=== PATIENT | female | born 1955 | race Caucasian/White ===

== ENCOUNTER 2017-12-04 14:40 | Emergency (ER) | payer MEDICAID, SELFPAY ==
[2017-12-04 14:45] VITALS: BP 148/81; PULSE 97; RESP 16; TEMP 37; O2SAT 98
--- NOTE | 2017-12-04 15:49 | DI.REPORT_ITS ---
SYMPTOM/DIAGNOSIS: LEFT ARM PAIN ULTRASOUND LEFT UPPER EXTREMITY: The jugular, subclavian through the forearm was scanned. The vessels are freely compressible. No deep venous or superficial thrombosis seen. There is no evidence of hematoma. IMPRESSION: Negative left upper extremity ultrasound.
--- NOTE | 2017-12-04 15:49 | DI.REPORT_ITS ---
SYMPTOM/DIAGNOSIS: LEFT ARM PAIN LEFT HUMERUS: No fracture or bony erosions are seen. Large calcifications are seen adjacent to the humeral head which appear to lie in the subcoracoid bursa. An additional small calcification is seen adjacent to the greater tuberosity. There is mild spurring at the under surface of the acromion. The glenohumeral joint is grossly well maintained. IMPRESSION: Calcific tendinitis and calcific bursitis.
--- NOTE | 2017-12-04 16:36 | DI.VRAD_ITS ---
EXAM: XR Left Humerus, 2 or More Views CLINICAL HISTORY: 62 years old, female; Pain; Upper arm; Left; Patient HX: Left mid, humeral pain TECHNIQUE: Frontal and lateral views of the left humerus. COMPARISON: US - LEFT EXTREMITY ULTRASOUND 2017-03-25 09:14 FINDINGS: Bones/joints: Minimal degenerative arthrosis of the acromioclavicular joint. No acute fracture. No dislocation. Soft tissues: Amorphous calcification measuring 3.9 cm long by 1.5 cm high by 1.5 cm AP anterior to the humeral head extending to the humerus lesser tuberosity. Differential diagnosis includes subscapularis calcific bursitis and/or subscapularis calcific tendinitis. Other findings: Dense 4 mm nodule within the left lung apex, likely calcified granuloma. IMPRESSION: Subscapularis calcific tendinitis and/or calcific bursitis. Dictated and Authenticated by: Graeme Olmstead MD. Ordering:ALVERTO KNOX MD
--- NOTE | 2017-12-04 17:47 | ED.GENADUL_ITS ---
Disposition Clinical Impression: Left upper arm pain Disposition: HOME Condition: Stable Instructions: Arm Pain (ED) Additional Instructions: Feel free to return immediately for any new or worsening symptoms such as severe swelling of your extremity, color change, loss of sensation. Otherwise keep your appointment for your primary care provider tomorrow. This evening you may continue to take acetaminophen as needed for pain control. Referrals: Arnoldo Florentino MD [Primary Care Provider] - (Keep your appointment as previously scheduled) Medical Decision Making - Radiology Data Radiology results: report reviewed, image reviewed - Medical Decision Making Patient presenting to the emergency department for left upper arm pain. She states a popping sensation prior to this occurring. Patient states history of clotting disorder which requires her to take aspirin on a daily basis. Physical exam reveals mid humeral pain and discomfort with movement and palpation but no obvious deformity, crepitus. Negative Spurling's test patient denies any injury or trauma but patient's history of event is odd and there is concern for possible clot to her arm or other ostial pathology. Plan to do ultrasound imaging of arm given history of stated blood clotting disorder and x- ray imaging. Patient given acetaminophen for pain control pending results. After review of radiological imaging showing no DVT noted in the arm and no fracture dislocation but obvious signs of calcification of tendons there is concern for some possible tendinopathy. This does not specifically correlate with patient stating a popping sensation and there is no sign of muscular rupture, ecchymosis, or deformity with patient being able to move her arm but extremely painful with movement. Given these findings and informed patient that she should rest her extremity for the next 3-4 days and continue to take acetaminophen as needed for pain control. Patient to follow-up with her primary care provider if not improving. After discussion of diagnosis and plan of care with patient patient agreed and stated no further needs, questions, or concerns at this time. History of Present Illness - General Chief complaint: Orthopedic Stated complaint: LT ARM PAIN Time Seen by Provider: 12/04/17 14:50 Source: patient, RN notes reviewed Mode of arrival: ambulatory Limitations: no limitations - History of Present Illness Initial comments: Patient reports yesterday she was sitting on a couch and felt a pop in her left upper arm. She states that she has been dealing with some pain in her left arm for about a month now and her primary care provider told her it was cervical radiculopathy. She states that this is a different pain and sensation. Patient denies any injury or trauma that occurred preceding the pain. She does state that she has a clotting disorder which she has to take aspirin daily. Onset/Timin -: days(s) Location: left, upper extremity Radiation: distal Severity scale (1-10): 4 Quality: aching Consistency: constant Improves with: none Worsens with: movement Associated Symptoms: denies other symptoms Treatments Prior to Arrival: none - Related Data Aspirin 325 mg PO DAILY tab-cap 09/18/12 Divalproex Sodium 500 mg PO BID #180 tab-cap 10/29/16 Lorazepam 1 tab PO Q6H PRN #30 tab-cap 01/06/17 Metoprolol Succinate 1 tab PO DAILY #90 tab-cap 09/08/17 Baclofen 10 mg PO TID PRN #30 tab-cap 10/23/17 Sumatriptan Succinate 100 mg PO DIRECTED #40 tab 11/21/17 Verapamil HCl [Verelan] 360 mg PO DAILY #90 tab-cap 11/24/17 Allergies Allergy/AdvReac Type Severity Reaction Status Date / Time hydrochlorothiazide Allergy Unverified 12/05/17 13:10 carbamazepine AdvReac Severe nausea and Unverified 12/05/17 13:10 bloating lisinopril AdvReac diarrhea Unverified 12/05/17 13:10 topiramate [From Topamax] AdvReac tachy Unverified 12/05/17 13:10 Adhesive Tab Allergy Intermediate skin Uncoded 12/04/17 14:48 blistered Review of Systems Constitutional: denies: chills, fever Respiratory: denies: shortness of breath Cardiovascular: denies: chest pain, palpitations Gastrointestinal: denies: abdominal pain, nausea Musculoskeletal: as per HPI. denies: joint swelling Skin: denies: change in color Neurological: numbness, paresthesias Past Medical History - Past Medical History Medical history: hypertension Myeloproliferative disorder, migraine headache, cystic mastopathy, celiac disease, thrombocytopenia, polycythemia vera Surgical history: non-contributory Family history: cancer, diabetes, hypertension - Social History Smoking status: never smoker Alcohol use: none Drug use: none General Exam - General Limitations: no limitations General appearance: alert, in no apparent distress - Head Head exam: Present: atraumatic - Neck Neck exam: Present: normal inspection, full ROM. Absent: tenderness, other ( Negative Spurling's test) - Respiratory Respiratory exam: Present: normal lung sounds bilaterally. Absent: respiratory distress, wheezes, rales, rhonchi, stridor, chest wall tenderness, decreased breath sounds - Cardiovascular Cardiovascular Exam: Present: regular rate, normal rhythm, normal heart sounds. Absent: tachycardia, systolic murmur, diastolic murmur, rubs, clicks - Expanded Upper Extremity Exam Left Shoulder Exam: Absent: full ROM (Patient has difficulty with external rotation and abduction), crepidus, dislocation, erythema, tenderness over AC joint Upper Arm exam: Present: tenderness (To palpation of mid humerus) Elbow exam: Present: normal inspection, full ROM. Absent: pain w/ pronation/ supination, tenderness over radial head Forearm Wrist exam: Present: normal inspection, full ROM. Absent: tenderness Hand Wrist exam: Present: normal inspection, full ROM Neuro motor exam: Present: wrist extension intact, thumb opposition intact, thumb IP flexion intact, thumb adduction intact, fingers 2-5 abduction intact Neurosensory exam: Present: 2-point discrimination, radial nerve intact, ulnar nerve intact, median nerve intact - Neurological Exam Neurological exam: Present: alert, oriented X3. Absent: altered - Skin Skin exam: Present: warm, dry, normal color Course Vital Signs - 24 hr 12/04/17 14:45 Temperature 37.0 C Pulse 97 H Respiratory 16 Rate Blood Pressure 148/81 Pulse Oximetry 98
--- NOTE | 2017-12-04 17:47 | DI.VRAD_ITS ---
EXAM: US Duplex Left Upper Extremity Veins CLINICAL HISTORY: 62 years old, female; Pain; Other: Mid humeral pain no trauma TECHNIQUE: Real-time duplex ultrasound scan of the left upper extremity veins integrating B-mode two-dimensional vascular structure, Doppler spectral analysis, color flow Doppler imaging and compression. COMPARISON: No relevant prior studies available. FINDINGS: No evidence of deep venous thrombosis. No abnormal fluid collections. IMPRESSION: No evidence of deep venous thrombosis. Dictated and Authenticated by: Pascual Landaverde MD. Ordering:ALVERTO KNOX MD
[2017-12-04 18:11] VITALS: BP 110/85; PULSE 78; RESP 16; TEMP 36.8; O2SAT 98
== END 2017-12-04 18:13 | disposition home or self-care (01) ==
PROVIDERS: Emergency Provider Student in an Organized Health Care Education/Training Program; PCP Family Medicine
DX: M79.622 Pain in left upper arm (principal); I10 Essential (primary) hypertension
CPT/HCPCS: 99284; 73060; 93971

== ENCOUNTER 2018-01-14 00:39 | Outpatient (CLI) | payer MEDICAID, SELFPAY ==
--- NOTE | 2018-01-14 07:11 | DI.CT_ITS ---
SYMPTOM/DIAGNOSIS: SOFT TISSUE MASS, LEFT AXILLA R22.[address]: The study was carried out with intravenous administration of 100 cc Isovue 350. There is no pulmonary infiltrate. There are small bilateral calcified pulmonary nodules and a 5 mm nodule is noted adjacent to the pleural surface in the right lower lobe. A region of scarring involving the right middle lobe is demonstrated. There is no pneumothorax or pleural effusion. There is no evidence of hilar or mediastinal adenopathy. The heart is not enlarged. There is no pericardial effusion. There is no evidence of pulmonary embolic disease. There is no evidence of an aortic aneurysm. There is no evidence of lateral left axillary adenopathy or a mass. Note is made of regions of increased absorption in the left humeral head probably on the basis of degenerative disease. The patient underwent a left shoulder MRI on the same date. Please see the separate report. SUMMARY: Multiple old healed granulomata are demonstrated. There is a 5 mm nodule adjacent to the posterior right pleural surface which is not calcified. A follow up low dose chest CT in 12 months is suggested for further review. No axillary mass is demonstrated. As noted above there are regions of increased absorption in the left humeral head to be correlated with an MRI.
[2018-01-14 07:42] LABS: CREATININE 0.86 mg/dL (0.55-1.02)
[2018-01-14] MEDS: Omnipaque 350 MG/ML 100 ML BTL IV (08:35)
--- NOTE | 2018-01-14 10:10 | DI.MRI_ITS ---
SYMPTOMS/DIAGNOSIS: RADICULAR PAIN INTO LEFT ARM WITH ANESTHESIA, LEFT CERVICAL RADICULOPATHY C-SPINE MRI: The examination was carried out according to the usual protocol. No significant bony signal abnormality is seen. At C2-3, there is no evidence of a disc herniation. The facet joints are intact. There is no evidence of spinal stenosis. At C3-4, there is no disc herniation, minimal facet joint degenerative changes are identified and there is no evidence of spinal stenosis. At C4-5, there is no evidence of a disc herniation, minimal facet DJD is demonstrated and there is no evidence of spinal stenosis. At C5-C6, a disc bulge is demonstrated with partial effacement of the subarachnoid space anterior to the cord. There is mild facet joint DJD and no evidence of significant spinal stenosis. At C6-C7, a small disc bulge is noted and there is partial effacement of the subarachnoid space anterior to the cord. There are mild to moderate facet joint degenerative changes and no evidence of significant spinal stenosis. There is no intrinsic abnormality involving the cervical cord. SUMMARY: There is evidence of degenerative disc disease and DJD with no evidence of significant spinal stenosis.
[2018-01-14] MEDS: Gadoterate meglumine 20 ML VIAL 19 ML IVP (11:15)
--- NOTE | 2018-01-14 11:40 | DI.MRI_ITS ---
SYMPTOM/DIAGNOSIS: PAIN AND DECREASED ROM LT SHOULDER, PAIN M25.512 LEFT SHOULDER MRI: 01/14 MR examination of the shoulder was performed according to the usual protocol. There are areas of heterogeneous abnormal signal in the humeral head. The patient has known calcific michele-arthritis of the shoulder. The subscapularis tendon is markedly abnormal in signal consistent with known acute calcific michele-arthritis with very prominent calcifications. Post contrast imaging of the humeral head shows some abnormal signal. The findings are nonspecific but the possibility of neoplastic or post traumatic change would have to be considered. Mild tendinopathy of supraspinatus and infraspinatus tendons also noted. No gross labral tear is seen. CONCLUSION: Findings consistent with acute calcific michele-arthritis of the subscapularis tendon and mild tendinopathy involving supraspinatus and infraspinatus. Findings of uncertain significance involving left humeral head, post traumatic or neoplastic findings may be present. Additional evaluation with CT shoulder is recommended.
--- NOTE | 2018-01-15 13:38 | DI.VRAD_ITS ---
EXAM: MR Left Upper Extremity Without And With Intravenous Contrast, Shoulder EXAM DATE/TIME: 01/14/2018 4:17 PM CLINICAL HISTORY: The patient is 62 years old and is female; Pain; Shoulder; Left; Patient HX: Left arm pain, no known injury. Main TECHNIQUE: Multiplanar magnetic resonance images of the left shoulder without and with intravenous contrast. CONTRAST: 19 mL of Dotarem administered intravenously. COMPARISON: CR - LEFT HUMERUS 12/04/2017 4:16:40 PM FINDINGS: TENDONS: Supraspinatus: There is mild supraspinatus tendinopathy. Infraspinatus: There is very mild infraspinatus tendinopathy. Subscapularis: There is moderate subscapularis tendinopathy. This includes some heterogeneous signal along the musculotendinous junction which may relate to be calcification seen on radiographs. Teres minor: Unremarkable. Biceps brachii, long head: Unremarkable. LIGAMENTS: Glenohumeral: Unremarkable. Muscles: Unremarkable. Fluid: Unremarkable. No joint effusion. Cartilage: The glenohumeral articular cartilage is intact. Glenoid labrum: No gross tear of the acetabular labrum is evident. Bones/joints: There is very mild acromioclavicular arthrosis. A small osteophyte projection the distal undersurface of the acromion. There is heterogeneous signal abnormality in the humeral head anteriorly and laterally, consisting of lobulated low T1 and high T2 signal foci, extending over an area up to 3.1 x 1.7 x 1.5 cm, as well as some globular dark T1/T2 signal more inferiorly toward the neck, measuring up to 1.6 cm. Some of this appears to enhance heterogeneously. This is of uncertain significance and has no definite radiographic correlate, but pathology is possible. IMPRESSION: 1. Degenerative changes as described. 2. Rotator cuff tendinopathy as described, including heterogeneous signal along the subscapularis musculotendinous junction which may relate to calcification on radiographs of 12/04/17 in association with calcific tendinopathy. 3. Signal abnormality in the humeral head as above, without definite radiographic correlate and of uncertain significance. Underlying pathology is possible, and further evaluation with CT and possibly bone scan is recommended. Dictated and Authenticated by: Eduardo Rucker MD. Ordering:DANN LECHUGA MD
== END 2018-01-14 00:59 ==
PROVIDERS: PCP Family Medicine; Visit Provider Family Medicine
DX: R22.32 Localized swelling, mass and lump, left upper limb (principal); R91.1 Solitary pulmonary nodule; M54.12 Radiculopathy, cervical region; M50.322 Other cervical disc degeneration at C5-C6 level; M47.22 Other spondylosis with radiculopathy, cervical region; M25.512 Pain in left shoulder
CPT/HCPCS: 71260; 72141; 73223; 82565; J3490

== ENCOUNTER 2018-02-03 01:41 | Outpatient (CLI) | payer MEDICAID, SELFPAY ==
[2018-02-03 08:28] LABS: Abs Immature Grans 0.04 k/cumm (0.0-0.09); Absolute Basophil Count 0.19 k/cumm (0.0-0.2); Absolute Lymphocyte Count 2.48 k/cumm (1.2-3.4); Absolute Monocyte Count 0.57 k/cumm (0.11-0.7); Absolute Neutrophil Count 3.51 k/cumm (1.2-6.7); Basophils % 2.7; Eosinophils % 4.2; HCT 40.1 % (36.0-46.0); HGB 13.3 g/dL (12.0-15.5); Immature Grans % 0.6; Mean Corp. HGB Concentration 33.2 g/dL (32.0-36.0); Mean Corpuscular Hemoglobin 28.8 pg (27.0-33.0); Mean Corpuscular Volume 86.8 fL (80-95); Mean Platelet Volume 9.6 fL (8.0-11.0); Neutrophils % 49.5; RBC 4.62 m/cumm (4.00-5.20); RBC Distribution Width 20.1 % (11.7-14.6); White Blood Cell Count 7.09 k/cumm (4.4-10.8)
[2018-02-03 08:46] LABS: Iron 90 ug/dL (50-175); Total Iron Binding Capacity 338 ug/dL (250-450); Transferrin Sat 27 % (15-50)
[2018-02-03 08:49] LABS: Anisocytosis 3+; Diff Comment Agrees w/ Instrument; Platelet Count 993 x1000/uL (130-400); Polychromasia Present
[2018-02-03 08:50] LABS: Poikilocytes 2+
[2018-02-03 08:58] LABS: ALT 70 U/L (12-78); AST 37 U/L (15-37); Albumin 3.8 g/dL (3.4-5.0); Alkaline Phosphatase 127 U/L (46-116); BUN 16 mg/dL (7-18); Bilirubin, Total 0.3 mg/dL (0.2-1.0); Calcium 8.7 mg/dL (8.5-10.1); Chloride 103 mmol/L (98-107); Ferritin 207 ng/mL (8-388); Glucose 120 mg/dL (70-100); Potassium 3.9 mmol/L (3.5-5.1); Sodium 140 mmol/L (136-145); Total Protein 7.7 g/dL (6.4-8.2)
== END 2018-02-03 02:01 ==
PROVIDERS: PCP Family Medicine; Visit Provider Internal Medicine Hematology & Oncology
DX: D47.3 Essential (hemorrhagic) thrombocythemia (principal); E61.1 Iron deficiency
CPT/HCPCS: 36415; 80053; 82728; 83540; 83550; 85025

== ENCOUNTER 2018-03-18 11:16 | Outpatient (CLI) | payer MEDICAID, SELFPAY ==
[2018-03-18 12:05] LABS: HCT 38.2 % (36.0-46.0); HGB 12.6 g/dL (12.0-15.5); Mean Corpuscular Hemoglobin 29.6 pg (27.0-33.0); Mean Corpuscular Volume 89.9 fL (80-95); Mean Platelet Volume 9.5 fL (8.0-11.0); RBC 4.25 m/cumm (4.00-5.20); RBC Distribution Width 19.9 % (11.7-14.6); White Blood Cell Count 6.61 k/cumm (4.4-10.8)
[2018-03-18 12:27] LABS: ALT 39 U/L (12-78); AST 23 U/L (15-37); Albumin 3.8 g/dL (3.4-5.0); Alkaline Phosphatase 109 U/L (46-116); Anion Gap 10.5 mmol/L (3-11); BUN 15 mg/dL (7-18); Bilirubin, Total 0.3 mg/dL (0.2-1.0); CO2 27.5 mmol/L (21.0-32.0); CREATININE 1.02 mg/dL (0.55-1.02); Calcium 9.2 mg/dL (8.5-10.1); Chloride 101 mmol/L (98-107); Estimated GFR 55.28 (mL/min/1.73m2); Ferritin 153 ng/mL (8-388); Glucose 107 mg/dL (70-100); Potassium 4.2 mmol/L (3.5-5.1); Sodium 139 mmol/L (136-145); Total Protein 7.7 g/dL (6.4-8.2)
[2018-03-18 12:40] LABS: Absolute Lymphocyte Count 2.91 k/cumm (1.2-3.4); Absolute Monocyte Count 0.13 k/cumm (0.11-0.7); Absolute Neutrophil Count 3.31 k/cumm (1.2-6.7); Atypical Lymphocytes % 2; Platelet Count 857 x1000/uL (130-400)
[2018-03-18 12:41] LABS: Anisocytosis 2+; Diff Comment Manual Differential
[2018-03-18 13:43] LABS: Iron 73 ug/dL (50-175); Total Iron Binding Capacity 313 ug/dL (250-450); Transferrin Sat 23 % (15-50)
== END 2018-03-18 11:36 ==
PROVIDERS: PCP Family Medicine; Visit Provider Internal Medicine Hematology & Oncology
DX: E61.1 Iron deficiency (principal); D47.3 Essential (hemorrhagic) thrombocythemia
CPT/HCPCS: 36415; 80053; 82728; 83540; 83550; 85025

== ENCOUNTER 2018-03-25 08:55 | Outpatient (CLI) | payer MEDICAID, SELFPAY ==
[2018-03-25 09:30] LABS: Abs Immature Grans 0.05 k/cumm (0.0-0.09); HCT 39.3 % (36.0-46.0); Mean Corp. HGB Concentration 33.1 g/dL (32.0-36.0); Mean Corpuscular Hemoglobin 29.7 pg (27.0-33.0); Mean Corpuscular Volume 89.7 fL (80-95); Mean Platelet Volume 9.4 fL (8.0-11.0); RBC 4.38 m/cumm (4.00-5.20); RBC Distribution Width 20.2 % (11.7-14.6); White Blood Cell Count 7.24 k/cumm (4.4-10.8)
[2018-03-25 09:50] LABS: ALT 42 U/L (12-78); AST 23 U/L (15-37); Albumin 3.9 g/dL (3.4-5.0); Alkaline Phosphatase 98 U/L (46-116); Anion Gap 8.7 mmol/L (3-11); BUN 24 mg/dL (7-18); Bilirubin, Total 0.2 mg/dL (0.2-1.0); CO2 27.3 mmol/L (21.0-32.0); CREATININE 0.77 mg/dL (0.55-1.02); Calcium 9.2 mg/dL (8.5-10.1); Chloride 101 mmol/L (98-107); Glucose 104 mg/dL (70-100); Potassium 3.8 mmol/L (3.5-5.1); Sodium 137 mmol/L (136-145); Total Protein 7.9 g/dL (6.4-8.2)
[2018-03-25 10:00] LABS: Platelet Count 883 x1000/uL (130-400)
[2018-03-25 10:01] LABS: Absolute Basophil Count 0.07 k/cumm (0.0-0.2); Absolute Eosinophil Count 0.07 k/cumm (0.0-0.7); Absolute Lymphocyte Count 2.68 k/cumm (1.2-3.4); Absolute Monocyte Count 0.65 k/cumm (0.11-0.7); Absolute Neutrophil Count 3.69 k/cumm (1.2-6.7); Atypical Lymphocytes % 2
[2018-03-25 10:03] LABS: Anisocytosis 2+; Diff Comment Manual Differential; Polychromasia Present
[2018-03-25 10:04] LABS: Poikilocytes 2+
== END 2018-03-25 09:15 ==
PROVIDERS: PCP Family Medicine; Visit Provider Internal Medicine Hematology & Oncology
DX: D47.3 Essential (hemorrhagic) thrombocythemia (principal)
CPT/HCPCS: 36415; 80053; 85025

== ENCOUNTER 2018-04-06 00:19 | Outpatient (CLI) | payer MEDICAID, SELFPAY ==
--- NOTE | 2018-04-06 10:41 | DI.NM_ITS ---
SYMPTOM/DIAGNOSIS: INTRAOSSEOUS CALCIFICATIONS PROX HUMERUS, LT ARM PAIN M79.601 BONE SCAN: A 3 phase radionuclide bone scan was carried out with intravenous injection of 24 mCi of Tc99m MDP. The patient apparently has left ankle pain for 1 1/2 years. There is no recorded injury and also there is a history of polycythemia vera. The bony uptake of the radiopharmaceutical is essentially unremarkable save for small regions of increased proton density involving the region of the proximal metaphysis and head of the left humerus. Immediate and delayed images reveal increased proton density involving the proximal left humerus. A recent MRI of 01/14/18 was reviewed. Also a CT from 01/14/18 was reviewed and there has been likely no significant interval change in the size of this abnormality involving the proximal left humerus. The finding likely represents a benign process with the possibility of a cystic vascular and/or malignant lesion could not be entirely excluded. Further evaluation could include PET CT and if appropriate a biopsy could also be considered.
== END 2018-04-06 00:39 ==
PROVIDERS: PCP Family Medicine; Visit Provider Physician Assistant
DX: M79.601 Pain in right arm (principal); M89.8X2 Other specified disorders of bone, upper arm
CPT/HCPCS: 78315

== ENCOUNTER 2018-04-23 02:29 | Outpatient (CLI) | payer MEDICAID, SELFPAY ==
[2018-04-23 08:33] LABS: HCT 40.4 % (36.0-46.0); HGB 13.2 g/dL (12.0-15.5); Mean Corp. HGB Concentration 32.7 g/dL (32.0-36.0); Mean Corpuscular Hemoglobin 29.9 pg (27.0-33.0); Mean Corpuscular Volume 91.6 fL (80-95); Mean Platelet Volume 9.9 fL (8.0-11.0); RBC 4.41 m/cumm (4.00-5.20); RBC Distribution Width 19.7 % (11.7-14.6); White Blood Cell Count 9.48 k/cumm (4.4-10.8)
[2018-04-23 08:52] LABS: Absolute Eosinophil Count 0.66 k/cumm (0.0-0.7); Absolute Lymphocyte Count 2.75 k/cumm (1.2-3.4); Absolute Monocyte Count 0.57 k/cumm (0.11-0.7); Absolute Neutrophil Count 5.12 k/cumm (1.2-6.7); Atypical Lymphocytes % 2; Platelet Count 920 x1000/uL (130-400)
[2018-04-23 08:53] LABS: Absolute Basophil Count 0.19 k/cumm (0.0-0.2); Anisocytosis 2+; Diff Comment Manual Differential; Hypochromasia 2+; Nucleated RBC 1 /100WBC; Polychromasia Present
[2018-04-23 08:54] LABS: Poikilocytes 3+
[2018-04-23 08:56] LABS: ALT 38 U/L (12-78); AST 25 U/L (15-37); Albumin 3.4 g/dL (3.4-5.0); Alkaline Phosphatase 131 U/L (46-116); Anion Gap 10.2 mmol/L (3-11); BUN 20 mg/dL (7-18); Bilirubin, Total 0.3 mg/dL (0.2-1.0); CO2 27.8 mmol/L (21.0-32.0); CREATININE 0.87 mg/dL (0.55-1.02); Calcium 9.4 mg/dL (8.5-10.1); Chloride 102 mmol/L (98-107); Glucose 120 mg/dL (70-100); Potassium 3.9 mmol/L (3.5-5.1); Sodium 140 mmol/L (136-145)
== END 2018-04-23 02:49 ==
PROVIDERS: PCP Family Medicine; Visit Provider Internal Medicine Hematology & Oncology
DX: D47.3 Essential (hemorrhagic) thrombocythemia (principal)
CPT/HCPCS: 36415; 80053; 85025

== ENCOUNTER 2018-06-02 08:04 | Outpatient (CLI) | payer MEDICAID, SELFPAY ==
[2018-06-02 09:07] LABS: Abs Immature Grans 0.06 k/cumm (0.0-0.09); HCT 40.1 % (36.0-46.0); Mean Corp. HGB Concentration 32.4 g/dL (32.0-36.0); Mean Corpuscular Hemoglobin 30.5 pg (27.0-33.0); Mean Corpuscular Volume 94.1 fL (80-95); Mean Platelet Volume 9.6 fL (8.0-11.0); RBC 4.26 m/cumm (4.00-5.20); RBC Distribution Width 19.9 % (11.7-14.6); White Blood Cell Count 6.61 k/cumm (4.4-10.8)
[2018-06-02 09:19] LABS: ALT 43 U/L (12-78); AST 27 U/L (15-37); Albumin 3.6 g/dL (3.4-5.0); Alkaline Phosphatase 93 U/L (46-116); Anion Gap 8.8 mmol/L (3-11); BUN 18 mg/dL (7-18); Bilirubin, Total 0.3 mg/dL (0.2-1.0); CO2 27.2 mmol/L (21.0-32.0); CREATININE 0.84 mg/dL (0.55-1.02); Calcium 9.2 mg/dL (8.5-10.1); Chloride 101 mmol/L (98-107); Glucose 114 mg/dL (70-100); Potassium 3.8 mmol/L (3.5-5.1); Sodium 137 mmol/L (136-145); Total Protein 7.7 g/dL (6.4-8.2)
[2018-06-02 09:20] LABS: Absolute Lymphocyte Count 2.51 k/cumm (1.2-3.4); Absolute Monocyte Count 0.46 k/cumm (0.11-0.7); Absolute Neutrophil Count 3.44 k/cumm (1.2-6.7); Anisocytosis 2+; Atypical Lymphocytes % 1; Diff Comment Manual Differential; Platelet Count 797 x1000/uL (130-400); Polychromasia Present
[2018-06-02 09:21] LABS: Poikilocytes 2+
== END 2018-06-02 08:24 ==
PROVIDERS: PCP Family Medicine; Visit Provider Internal Medicine Hematology & Oncology
DX: D47.3 Essential (hemorrhagic) thrombocythemia (principal)
CPT/HCPCS: 36415; 80053; 85025

== ENCOUNTER 2018-07-01 12:41 | Outpatient (CLI) | payer MEDICAID, SELFPAY ==
[2018-07-01 13:30] LABS: Absolute Eosinophil Count 0.22 k/cumm (0.0-0.7); HCT 41.5 % (36.0-46.0); HGB 13.4 g/dL (12.0-15.5); Mean Corp. HGB Concentration 32.3 g/dL (32.0-36.0); Mean Corpuscular Hemoglobin 30.6 pg (27.0-33.0); Mean Corpuscular Volume 94.7 fL (80-95); Mean Platelet Volume 9.6 fL (8.0-11.0); RBC 4.38 m/cumm (4.00-5.20); RBC Distribution Width 19.4 % (11.7-14.6); White Blood Cell Count 7.23 k/cumm (4.4-10.8)
[2018-07-01 13:58] LABS: ALT 35 U/L (12-78); AST 25 U/L (15-37); Albumin 3.9 g/dL (3.4-5.0); Alkaline Phosphatase 104 U/L (46-116); Anion Gap 8.9 mmol/L (3-11); BUN 20 mg/dL (7-18); Bilirubin, Total 0.3 mg/dL (0.2-1.0); CO2 28.1 mmol/L (21.0-32.0); CREATININE 0.78 mg/dL (0.55-1.02); Calcium 9.1 mg/dL (8.5-10.1); Chloride 101 mmol/L (98-107); Glucose 96 mg/dL (70-100); Potassium 3.9 mmol/L (3.5-5.1); Sodium 138 mmol/L (136-145); Total Protein 8.1 g/dL (6.4-8.2)
[2018-07-01 14:10] LABS: Absolute Neutrophil Count 3.47 k/cumm (1.2-6.7)
[2018-07-01 14:11] LABS: Absolute Basophil Count 0.07 k/cumm (0.0-0.2); Absolute Lymphocyte Count 3.11 k/cumm (1.2-3.4); Absolute Monocyte Count 0.36 k/cumm (0.11-0.7); Anisocytosis 1+; Atypical Lymphocytes % 5; Diff Comment Manual Differential; Polychromasia Present
[2018-07-01 14:12] LABS: Platelet Count 771 x1000/uL (130-400)
== END 2018-07-01 13:01 ==
PROVIDERS: PCP Family Medicine; Visit Provider Internal Medicine Hematology & Oncology
DX: D47.3 Essential (hemorrhagic) thrombocythemia (principal)
CPT/HCPCS: 36415; 80053; 85025

== ENCOUNTER 2018-07-28 01:46 | Outpatient (CLI) | payer MEDICAID, SELFPAY ==
[2018-07-28 13:18] LABS: Abs Immature Grans 0.03 k/cumm (0.0-0.09); Absolute Basophil Count 0.13 k/cumm (0.0-0.2); Absolute Eosinophil Count 0.17 k/cumm (0.0-0.7); Absolute Lymphocyte Count 2.32 k/cumm (1.2-3.4); Absolute Monocyte Count 0.62 k/cumm (0.11-0.7); Absolute Neutrophil Count 3.38 k/cumm (1.2-6.7); Eosinophils % 2.6; HCT 39.9 % (36.0-46.0); HGB 12.9 g/dL (12.0-15.5); Immature Grans % 0.5; Lymphocytes % 34.9; Mean Corp. HGB Concentration 32.3 g/dL (32.0-36.0); Mean Corpuscular Hemoglobin 31.1 pg (27.0-33.0); Mean Corpuscular Volume 96.1 fL (80-95); Mean Platelet Volume 9.4 fL (8.0-11.0); Monocytes % 9.3; Neutrophils % 50.7; Platelet Count 731 x1000/uL (130-400); RBC 4.15 m/cumm (4.00-5.20); RBC Distribution Width 18.7 % (11.7-14.6); White Blood Cell Count 6.65 k/cumm (4.4-10.8)
[2018-07-28 13:30] LABS: ALT 43 U/L (12-78); AST 23 U/L (15-37); Albumin 3.8 g/dL (3.4-5.0); Alkaline Phosphatase 98 U/L (46-116); BUN 22 mg/dL (7-18); Bilirubin, Total 0.3 mg/dL (0.2-1.0); CREATININE 0.82 mg/dL (0.55-1.02); Calcium 9.3 mg/dL (8.5-10.1); Chloride 100 mmol/L (98-107); Glucose 94 mg/dL (70-100); Potassium 3.7 mmol/L (3.5-5.1); Sodium 138 mmol/L (136-145); Total Protein 7.7 g/dL (6.4-8.2)
== END 2018-07-28 02:06 ==
PROVIDERS: PCP Family Medicine; Visit Provider Internal Medicine Hematology & Oncology
DX: D47.3 Essential (hemorrhagic) thrombocythemia (principal)
CPT/HCPCS: 80053; 85025

== ENCOUNTER 2018-08-25 10:17 | Outpatient (CLI) | payer MEDICAID, SELFPAY ==
[2018-08-25 11:19] LABS: Abs Immature Grans 0.02 k/cumm (0.0-0.09); Absolute Basophil Count 0.12 k/cumm (0.0-0.2); Absolute Eosinophil Count 0.14 k/cumm (0.0-0.7); Absolute Monocyte Count 0.41 k/cumm (0.11-0.7); Absolute Neutrophil Count 2.83 k/cumm (1.2-6.7); Basophils % 2.2; Eosinophils % 2.5; HGB 12.9 g/dL (12.0-15.5); Immature Grans % 0.4; Lymphocytes % 36.2; Mean Corp. HGB Concentration 33.1 g/dL (32.0-36.0); Mean Corpuscular Hemoglobin 32.7 pg (27.0-33.0); Mean Corpuscular Volume 98.7 fL (80-95); Mean Platelet Volume 9.5 fL (8.0-11.0); Monocytes % 7.4; Neutrophils % 51.3; Platelet Count 655 x1000/uL (130-400); RBC 3.95 m/cumm (4.00-5.20); White Blood Cell Count 5.52 k/cumm (4.4-10.8)
[2018-08-25 11:46] LABS: ALT 47 U/L (12-78); AST 24 U/L (15-37); Albumin 3.8 g/dL (3.4-5.0); Alkaline Phosphatase 89 U/L (46-116); Anion Gap 9.7 mmol/L (3-11); BUN 20 mg/dL (7-18); Bilirubin, Total 0.3 mg/dL (0.2-1.0); CO2 27.3 mmol/L (21.0-32.0); CREATININE 0.82 mg/dL (0.55-1.02); Calcium 9.1 mg/dL (8.5-10.1); Chloride 103 mmol/L (98-107); Glucose 114 mg/dL (70-100); Potassium 3.9 mmol/L (3.5-5.1); Sodium 140 mmol/L (136-145); Total Protein 7.7 g/dL (6.4-8.2)
== END 2018-08-25 10:37 ==
PROVIDERS: PCP Family Medicine; Visit Provider Internal Medicine Hematology & Oncology
DX: D47.3 Essential (hemorrhagic) thrombocythemia (principal)
CPT/HCPCS: 36415; 80053; 85025

== ENCOUNTER 2018-10-07 06:32 | Outpatient (CLI) | payer MEDICAID, SELFPAY ==
[2018-10-07 07:49] LABS: Abs Immature Grans 0.01 k/cumm (0.0-0.09); Absolute Basophil Count 0.09 k/cumm (0.0-0.2); Absolute Eosinophil Count 0.12 k/cumm (0.0-0.7); Absolute Lymphocyte Count 2.37 k/cumm (1.2-3.4); Absolute Monocyte Count 0.47 k/cumm (0.11-0.7); Basophils % 1.6; Eosinophils % 2.1; HCT 39.3 % (36.0-46.0); HGB 13.7 g/dL (12.0-15.5); Immature Grans % 0.2; Lymphocytes % 41.1; Mean Corp. HGB Concentration 34.9 g/dL (32.0-36.0); Mean Corpuscular Hemoglobin 34.5 pg (27.0-33.0); Mean Platelet Volume 9.8 fL (8.0-11.0); Monocytes % 8.2; Neutrophils % 46.8; Platelet Count 652 x1000/uL (130-400); RBC 3.97 m/cumm (4.00-5.20); RBC Distribution Width 18.3 % (11.7-14.6); White Blood Cell Count 5.76 k/cumm (4.4-10.8)
[2018-10-07 08:28] LABS: ALT 41 U/L (12-78); AST 25 U/L (15-37); Albumin 3.8 g/dL (3.4-5.0); Alkaline Phosphatase 104 U/L (46-116); Anion Gap 11.5 mmol/L (3-11); BUN 20 mg/dL (7-18); Bilirubin, Total 0.3 mg/dL (0.2-1.0); CO2 23.5 mmol/L (21.0-32.0); CREATININE 0.86 mg/dL (0.55-1.02); Chloride 102 mmol/L (98-107); Glucose 101 mg/dL (70-100); Potassium 3.8 mmol/L (3.5-5.1); Sodium 137 mmol/L (136-145); Total Protein 7.6 g/dL (6.4-8.2)
== END 2018-10-07 06:52 ==
PROVIDERS: PCP Family Medicine; Visit Provider Internal Medicine Hematology & Oncology
DX: D47.3 Essential (hemorrhagic) thrombocythemia (principal)
CPT/HCPCS: 36415; 80053; 85025

== ENCOUNTER 2018-11-10 00:21 | Outpatient (CLI) | payer MEDICAID, SELFPAY ==
--- NOTE | 2018-11-10 07:17 | DI.MAMMO_ITS ---
SYMPTOM/DIAGNOSIS: SCREENING, Z12.31 MAMMOGRAMS: Mammograms were interpreted according to the usual protocol including computer analysis with CAD system, tomosynthesis and C view imaging. Comparison is with the prior examinations. No suspicious masses or microcalcifications are seen. There is no definite evidence of malignancy. IMPRESSION: Negative mammogram. Routine screening is recommended. Category 1, breast density A. MQSA ASSESSMENT OF FINDINGS: Negative. Category 1. Patient will receive a letter notifying them of these results. BI-RAD category A. The breasts are almost entirely fatty.
== END 2018-11-10 00:41 ==
PROVIDERS: PCP Family Medicine; Visit Provider Family Medicine
DX: Z12.31 Encounter for screening mammogram for malignant neoplasm of breast (principal)
CPT/HCPCS: 77063; 77067

== ENCOUNTER 2018-12-02 04:08 | Outpatient (CLI) | payer MEDICAID, SELFPAY ==
[2018-12-02 07:35] LABS: Abs Immature Grans 0.03 k/cumm (0.0-0.09); Absolute Basophil Count 0.07 k/cumm (0.0-0.2); Absolute Eosinophil Count 0.13 k/cumm (0.0-0.7); Absolute Lymphocyte Count 1.84 k/cumm (1.2-3.4); Absolute Monocyte Count 0.35 k/cumm (0.11-0.7); Absolute Neutrophil Count 2.62 k/cumm (1.2-6.7); Basophils % 1.4; Eosinophils % 2.6; HCT 42.5 % (36.0-46.0); Immature Grans % 0.6; Lymphocytes % 36.5; Mean Corp. HGB Concentration 32.9 g/dL (32.0-36.0); Mean Corpuscular Hemoglobin 34.2 pg (27.0-33.0); Mean Corpuscular Volume 103.9 fL (80-95); Mean Platelet Volume 9.5 fL (8.0-11.0); Monocytes % 6.9; Platelet Count 633 x1000/uL (130-400); RBC 4.09 m/cumm (4.00-5.20); RBC Distribution Width 16.2 % (11.7-14.6); White Blood Cell Count 5.04 k/cumm (4.4-10.8)
[2018-12-02 08:28] LABS: ALT 39 U/L (12-78); AST 23 U/L (15-37); Albumin 3.9 g/dL (3.4-5.0); Alkaline Phosphatase 89 U/L (46-116); Anion Gap 11.4 mmol/L (3-11); BUN 18 mg/dL (7-18); Bilirubin, Total 0.3 mg/dL (0.2-1.0); CO2 25.6 mmol/L (21.0-32.0); CREATININE 0.76 mg/dL (0.55-1.02); Calcium 9.5 mg/dL (8.5-10.1); Chloride 104 mmol/L (98-107); Glucose 113 mg/dL (70-100); Potassium 4.4 mmol/L (3.5-5.1); Sodium 141 mmol/L (136-145); Total Protein 7.7 g/dL (6.4-8.2)
== END 2018-12-02 04:28 ==
PROVIDERS: PCP Family Medicine; Visit Provider Internal Medicine Hematology & Oncology
DX: D47.3 Essential (hemorrhagic) thrombocythemia (principal)
CPT/HCPCS: 36415; 80053; 85025

== ENCOUNTER 2018-12-11 07:47 | Outpatient (CLI) | payer MEDICAID, SELFPAY ==
--- NOTE | 2018-12-11 08:00 | DI.RAD_ITS ---
SYMPTOM/DIAGNOSIS: PAIN, REDNESS RT FOOT, M79.67 RIGHT FOOT: Three views. No priors. No bone or joint abnormality is identified. There does appear to be some generalized soft tissue swelling of the foot. No radiopaque foreign bodies are seen. IMPRESSION: Generalized soft tissue swelling of the right foot. No bone or joint abnormality.
== END 2018-12-11 08:07 ==
PROVIDERS: PCP Family Medicine; Visit Provider Family Medicine
DX: M79.671 Pain in right foot (principal); M79.89 Other specified soft tissue disorders
CPT/HCPCS: 73630

== ENCOUNTER 2018-12-31 02:28 | Outpatient (CLI) | payer MEDICAID, SELFPAY ==
[2018-12-31 08:04] LABS: Abs Immature Grans 0.01 k/cumm (0.0-0.09); Absolute Basophil Count 0.03 k/cumm (0.0-0.2); Absolute Eosinophil Count 0.08 k/cumm (0.0-0.7); Absolute Lymphocyte Count 1.52 k/cumm (1.2-3.4); Absolute Monocyte Count 0.37 k/cumm (0.11-0.7); Absolute Neutrophil Count 2.36 k/cumm (1.2-6.7); Basophils % 0.7; Eosinophils % 1.8; HCT 40.5 % (36.0-46.0); HGB 13.4 g/dL (12.0-15.5); Immature Grans % 0.2; Lymphocytes % 34.8; Mean Corp. HGB Concentration 33.1 g/dL (32.0-36.0); Mean Corpuscular Hemoglobin 34.6 pg (27.0-33.0); Mean Corpuscular Volume 104.7 fL (80-95); Mean Platelet Volume 9.7 fL (8.0-11.0); Monocytes % 8.5; Platelet Count 592 x1000/uL (130-400); RBC 3.87 m/cumm (4.00-5.20); RBC Distribution Width 16.5 % (11.7-14.6); White Blood Cell Count 4.37 k/cumm (4.4-10.8)
[2018-12-31 08:21] LABS: ALT 57 U/L (14-59); AST 30 U/L (15-37); Albumin 3.6 g/dL (3.4-5.0); Alkaline Phosphatase 113 U/L (46-116); Anion Gap 11.3 mmol/L (3-11); BUN 16 mg/dL (7-18); Bilirubin, Total 0.3 mg/dL (0.2-1.0); CO2 24.7 mmol/L (21.0-32.0); CREATININE 0.87 mg/dL (0.55-1.02); Calcium 8.8 mg/dL (8.5-10.1); Chloride 105 mmol/L (98-107); Glucose 123 mg/dL (70-100); Potassium 3.9 mmol/L (3.5-5.1); Sodium 141 mmol/L (136-145); Total Protein 7.4 g/dL (6.4-8.2)
== END 2018-12-31 02:48 ==
PROVIDERS: PCP Family Medicine; Visit Provider Internal Medicine Hematology & Oncology
DX: D47.3 Essential (hemorrhagic) thrombocythemia (principal)
CPT/HCPCS: 36415; 80053; 85025

== ENCOUNTER 2019-02-01 02:36 | Outpatient (CLI) | payer MEDICAID, SELFPAY ==
[2019-02-01 08:15] LABS: Abs Immature Grans 0.01 k/cumm (0.0-0.09); Absolute Basophil Count 0.05 k/cumm (0.0-0.2); Absolute Eosinophil Count 0.11 k/cumm (0.0-0.7); Absolute Monocyte Count 0.29 k/cumm (0.11-0.7); Basophils % 1.3; Eosinophils % 2.8; HCT 37.8 % (36.0-46.0); HGB 12.5 g/dL (12.0-15.5); Immature Grans % 0.3; Lymphocytes % 43.3; Mean Corp. HGB Concentration 33.1 g/dL (32.0-36.0); Mean Corpuscular Hemoglobin 35.1 pg (27.0-33.0); Mean Corpuscular Volume 106.2 fL (80-95); Mean Platelet Volume 9.3 fL (8.0-11.0); Monocytes % 7.4; Neutrophils % 44.9; Platelet Count 518 x1000/uL (130-400); RBC 3.56 m/cumm (4.00-5.20); RBC Distribution Width 17.1 % (11.7-14.6); White Blood Cell Count 3.93 k/cumm (4.4-10.8)
[2019-02-01 08:17] LABS: Absolute Neutrophil Count 1.76 k/cumm (1.2-6.7)
[2019-02-01 08:42] LABS: ALT 40 U/L (14-59); AST 31 U/L (15-37); Albumin 3.6 g/dL (3.4-5.0); Alkaline Phosphatase 86 U/L (46-116); Anion Gap 11.3 mmol/L (3-11); BUN 14 mg/dL (7-18); Bilirubin, Total 0.3 mg/dL (0.2-1.0); CO2 25.7 mmol/L (21.0-32.0); CREATININE 0.83 mg/dL (0.55-1.02); Chloride 104 mmol/L (98-107); Glucose 113 mg/dL (70-100); Potassium 4.1 mmol/L (3.5-5.1); Sodium 141 mmol/L (136-145); Total Protein 7.1 g/dL (6.4-8.2)
== END 2019-02-01 02:56 ==
PROVIDERS: PCP Family Medicine; Visit Provider Internal Medicine Hematology & Oncology
DX: D47.3 Essential (hemorrhagic) thrombocythemia (principal)
CPT/HCPCS: 36415; 80053; 85025

== ENCOUNTER 2019-03-08 02:05 | Outpatient (CLI) | payer MEDICAID, SELFPAY ==
[2019-03-08 08:28] LABS: Abs Immature Grans 0.02 k/cumm (0.0-0.09); Absolute Basophil Count 0.06 k/cumm (0.0-0.2); Absolute Eosinophil Count 0.13 k/cumm (0.0-0.7); Absolute Lymphocyte Count 1.83 k/cumm (1.2-3.4); Absolute Monocyte Count 0.36 k/cumm (0.11-0.7); Absolute Neutrophil Count 2.51 k/cumm (1.2-6.7); Basophils % 1.2; Eosinophils % 2.6; HCT 39.6 % (36.0-46.0); HGB 13.4 g/dL (12.0-15.5); Immature Grans % 0.4; Lymphocytes % 37.3; Mean Corp. HGB Concentration 33.8 g/dL (32.0-36.0); Mean Corpuscular Hemoglobin 36.2 pg (27.0-33.0); Mean Platelet Volume 9.2 fL (8.0-11.0); Monocytes % 7.3; Neutrophils % 51.2; RBC Distribution Width 17.2 % (11.7-14.6); White Blood Cell Count 4.91 k/cumm (4.4-10.8)
[2019-03-08 08:46] LABS: ALT 54 U/L (14-59); AST 34 U/L (15-37); Albumin 3.8 g/dL (3.4-5.0); Alkaline Phosphatase 92 U/L (46-116); Anion Gap 12.5 mmol/L (3-11); BUN 12 mg/dL (7-18); Bilirubin, Total 0.6 mg/dL (0.2-1.0); CO2 25.5 mmol/L (21.0-32.0); Chloride 104 mmol/L (98-107); Glucose 112 mg/dL (70-100); Potassium 3.7 mmol/L (3.5-5.1); Sodium 142 mmol/L (136-145); Total Protein 7.7 g/dL (6.4-8.2)
[2019-03-08 08:52] LABS: Anisocytosis 2+; Diff Comment RBC Morph Reviewed; Macrocytosis 2+; Platelet Count 717 x1000/uL (130-400); Polychromasia Present
[2019-03-08 08:53] LABS: Poikilocytes 2+
== END 2019-03-08 02:25 ==
PROVIDERS: PCP Family Medicine; Visit Provider Internal Medicine Hematology & Oncology
DX: D47.3 Essential (hemorrhagic) thrombocythemia (principal)
CPT/HCPCS: 36415; 80053; 85025

== ENCOUNTER 2019-04-05 02:00 | Outpatient (CLI) | payer MEDICAID, SELFPAY ==
[2019-04-05 08:08] LABS: Abs Immature Grans 0.01 k/cumm (0.0-0.09); Absolute Basophil Count 0.04 k/cumm (0.0-0.2); Absolute Eosinophil Count 0.09 k/cumm (0.0-0.7); Absolute Lymphocyte Count 1.86 k/cumm (1.2-3.4); Absolute Monocyte Count 0.41 k/cumm (0.11-0.7); Absolute Neutrophil Count 1.95 k/cumm (1.2-6.7); Basophils % 0.9; Eosinophils % 2.1; HCT 38.2 % (36.0-46.0); HGB 12.7 g/dL (12.0-15.5); Immature Grans % 0.2; Lymphocytes % 42.7; Mean Corp. HGB Concentration 33.2 g/dL (32.0-36.0); Mean Corpuscular Hemoglobin 36.9 pg (27.0-33.0); Mean Platelet Volume 9.2 fL (8.0-11.0); Monocytes % 9.4; Neutrophils % 44.7; Platelet Count 598 x1000/uL (130-400); RBC 3.44 m/cumm (4.00-5.20); RBC Distribution Width 15.6 % (11.7-14.6); White Blood Cell Count 4.36 k/cumm (4.4-10.8)
[2019-04-05 08:19] LABS: ALT 42 U/L (14-59); AST 28 U/L (15-37); Albumin 3.6 g/dL (3.4-5.0); Alkaline Phosphatase 83 U/L (46-116); Anion Gap 9.7 mmol/L (3-11); BUN 13 mg/dL (7-18); Bilirubin, Total 0.3 mg/dL (0.2-1.0); CO2 27.3 mmol/L (21.0-32.0); CREATININE 0.81 mg/dL (0.55-1.02); Calcium 8.8 mg/dL (8.5-10.1); Chloride 104 mmol/L (98-107); Glucose 110 mg/dL (74-106); Potassium 3.8 mmol/L (3.5-5.1); Sodium 141 mmol/L (136-145); Total Protein 7.4 g/dL (6.4-8.2)
[2019-04-05 08:28] LABS: Anisocytosis 1+; Diff Comment RBC Morph Reviewed; Macrocytosis 3+; Polychromasia Present; Stomatocytes 2+
== END 2019-04-05 02:20 ==
PROVIDERS: PCP Family Medicine; Visit Provider Internal Medicine Hematology & Oncology
DX: D47.3 Essential (hemorrhagic) thrombocythemia (principal)
CPT/HCPCS: 36415; 80053; 85025

== ENCOUNTER 2019-05-13 02:12 | Outpatient (CLI) | payer MEDICAID, SELFPAY ==
[2019-05-13 08:34] LABS: Abs Immature Grans 0.01 k/cumm (0.0-0.09); Absolute Basophil Count 0.06 k/cumm (0.0-0.2); Absolute Eosinophil Count 0.12 k/cumm (0.0-0.7); Absolute Lymphocyte Count 1.78 k/cumm (1.2-3.4); Absolute Monocyte Count 0.35 k/cumm (0.11-0.7); Absolute Neutrophil Count 2.21 k/cumm (1.2-6.7); Basophils % 1.3; Eosinophils % 2.6; HCT 37.1 % (36.0-46.0); HGB 12.8 g/dL (12.0-15.5); Immature Grans % 0.2 %; Lymphocytes % 39.3; Mean Corp. HGB Concentration 34.5 g/dL (32.0-36.0); Mean Corpuscular Hemoglobin 38.1 pg (27.0-33.0); Mean Corpuscular Volume 110.4 fL (80-95); Mean Platelet Volume 9.3 fL (8.0-11.0); Monocytes % 7.7; Neutrophils % 48.9; Platelet Count 628 x1000/uL (130-400); RBC 3.36 m/cumm (4.00-5.20); RBC Distribution Width 15.5 % (11.7-14.6); White Blood Cell Count 4.53 k/cumm (4.4-10.8)
[2019-05-13 08:54] LABS: Diff Comment RBC Morph Reviewed; Hypochromasia 1+; Macrocytosis 2+; Polychromasia Present
[2019-05-13 08:55] LABS: Poikilocytes 1+
[2019-05-13 10:01] LABS: ALT 63 U/L (14-59); AST 50 U/L (15-37); Albumin 3.8 g/dL (3.4-5.0); Alkaline Phosphatase 87 U/L (46-116); Anion Gap 12.4 mmol/L (3-11); BUN 16 mg/dL (7-18); Bilirubin, Total 0.3 mg/dL (0.2-1.0); CO2 26.6 mmol/L (21.0-32.0); CREATININE 0.83 mg/dL (0.55-1.02); Calcium 9.3 mg/dL (8.5-10.1); Chloride 103 mmol/L (98-107); Glucose 88 mg/dL (74-106); Potassium 4.2 mmol/L (3.5-5.1); Sodium 142 mmol/L (136-145); Total Protein 7.3 g/dL (6.4-8.2)
== END 2019-05-13 02:32 ==
PROVIDERS: PCP Family Medicine; Visit Provider Internal Medicine Hematology & Oncology
DX: D47.3 Essential (hemorrhagic) thrombocythemia (principal)
CPT/HCPCS: 36415; 80053; 85025

== ENCOUNTER 2019-05-31 01:58 | Outpatient (CLI) | payer MEDICAID, SELFPAY ==
[2019-05-31 08:33] LABS: Abs Immature Grans 0.01 k/cumm (0.0-0.09); Absolute Basophil Count 0.04 k/cumm (0.0-0.2); Absolute Eosinophil Count 0.07 k/cumm (0.0-0.7); Absolute Lymphocyte Count 1.64 k/cumm (1.2-3.4); Absolute Monocyte Count 0.37 k/cumm (0.11-0.7); Basophils % 0.9; Eosinophils % 1.6; HCT 37.9 % (36.0-46.0); Immature Grans % 0.2 %; Lymphocytes % 38.2; Mean Corp. HGB Concentration 34.3 g/dL (32.0-36.0); Mean Corpuscular Hemoglobin 38.3 pg (27.0-33.0); Mean Corpuscular Volume 111.8 fL (80-95); Mean Platelet Volume 9.4 fL (8.0-11.0); Monocytes % 8.6; Neutrophils % 50.5; RBC 3.39 m/cumm (4.00-5.20); RBC Distribution Width 15.1 % (11.7-14.6); White Blood Cell Count 4.29 k/cumm (4.4-10.8)
[2019-05-31 09:00] LABS: ALT 66 U/L (14-59); AST 52 U/L (15-37); Albumin 3.7 g/dL (3.4-5.0); Alkaline Phosphatase 79 U/L (46-116); Anion Gap 10.4 mmol/L (3-11); BUN 16 mg/dL (7-18); Bilirubin, Total 0.3 mg/dL (0.2-1.0); CO2 25.6 mmol/L (21.0-32.0); CREATININE 0.86 mg/dL (0.55-1.02); Calcium 8.8 mg/dL (8.5-10.1); Chloride 104 mmol/L (98-107); Glucose 102 mg/dL (74-106); Potassium 3.9 mmol/L (3.5-5.1); Sodium 140 mmol/L (136-145); Total Protein 7.4 g/dL (6.4-8.2)
[2019-05-31 09:35] LABS: Absolute Neutrophil Count 2.17 k/cumm (1.2-6.7); Diff Comment Diff Reviewed; Platelet Count 564 x1000/uL (130-400)
[2019-05-31 09:36] LABS: Anisocytosis 1+; Macrocytosis 2+; Polychromasia Present
== END 2019-05-31 02:18 ==
PROVIDERS: PCP Family Medicine; Visit Provider Internal Medicine Hematology & Oncology
DX: D47.3 Essential (hemorrhagic) thrombocythemia (principal)
CPT/HCPCS: 36415; 80053; 85025

== ENCOUNTER 2019-06-22 07:35 | Outpatient (CLI) | payer MEDICAID, SELFPAY ==
[2019-06-22 08:07] LABS: Abs Immature Grans 0.01 k/cumm (0.0-0.09); Absolute Basophil Count 0.04 k/cumm (0.0-0.2); Absolute Lymphocyte Count 1.69 k/cumm (1.2-3.4); Absolute Monocyte Count 0.33 k/cumm (0.11-0.7); Absolute Neutrophil Count 1.78 k/cumm (1.2-6.7); Eosinophils % 2.5; HCT 39.1 % (36.0-46.0); HGB 13.2 g/dL (12.0-15.5); Immature Grans % 0.3 %; Lymphocytes % 42.8; Mean Corp. HGB Concentration 33.8 g/dL (32.0-36.0); Mean Corpuscular Volume 112.7 fL (80-95); Mean Platelet Volume 9.2 fL (8.0-11.0); Monocytes % 8.4; Platelet Count 616 x1000/uL (130-400); RBC 3.47 m/cumm (4.00-5.20); RBC Distribution Width 15.2 % (11.7-14.6); White Blood Cell Count 3.95 k/cumm (4.4-10.8)
[2019-06-22 08:22] LABS: ALT 59 U/L (14-59); AST 41 U/L (15-37); Albumin 3.6 g/dL (3.4-5.0); Alkaline Phosphatase 98 U/L (46-116); Anion Gap 11.6 mmol/L (3-11); BUN 14 mg/dL (7-18); Bilirubin, Total 0.2 mg/dL (0.2-1.0); CO2 25.4 mmol/L (21.0-32.0); CREATININE 0.95 mg/dL (0.55-1.02); Calcium 8.9 mg/dL (8.5-10.1); Chloride 105 mmol/L (98-107); Glucose 117 mg/dL (74-106); Potassium 3.7 mmol/L (3.5-5.1); Sodium 142 mmol/L (136-145); Total Protein 7.5 g/dL (6.4-8.2)
[2019-06-22 08:46] LABS: Diff Comment RBC Morph Reviewed; Macrocytosis 2+
== END 2019-06-22 07:55 ==
PROVIDERS: PCP Family Medicine; Visit Provider Internal Medicine Hematology & Oncology
DX: D47.3 Essential (hemorrhagic) thrombocythemia (principal)
CPT/HCPCS: 36415; 80053; 85025

== ENCOUNTER 2019-08-20 01:49 | Outpatient (CLI) | payer MEDICAID, SELFPAY ==
[2019-08-20 16:08] LABS: Abs Immature Grans 0.01 k/cumm (0.0-0.09); Absolute Basophil Count 0.04 k/cumm (0.0-0.2); Absolute Eosinophil Count 0.08 k/cumm (0.0-0.7); Absolute Lymphocyte Count 2.22 k/cumm (1.2-3.4); Absolute Monocyte Count 0.43 k/cumm (0.11-0.7); Absolute Neutrophil Count 2.47 k/cumm (1.2-6.7); Basophils % 0.8; Eosinophils % 1.5; HGB 12.9 g/dL (12.0-15.5); Immature Grans % 0.2 %; Lymphocytes % 42.3; Mean Corp. HGB Concentration 33.9 g/dL (32.0-36.0); Mean Corpuscular Hemoglobin 38.3 pg (27.0-33.0); Mean Corpuscular Volume 112.8 fL (80-95); Mean Platelet Volume 9.8 fL (8.0-11.0); Monocytes % 8.2; RBC 3.37 m/cumm (4.00-5.20); RBC Distribution Width 14.9 % (11.7-14.6); White Blood Cell Count 5.25 k/cumm (4.4-10.8)
[2019-08-20 16:38] LABS: Platelet Count 758 x1000/uL (130-400)
[2019-08-20 16:56] LABS: ALT 61 U/L (14-59); AST 39 U/L (15-37); Alkaline Phosphatase 106 U/L (46-116); Anion Gap 9.1 mmol/L (3-11); BUN 18 mg/dL (7-18); Bilirubin, Total 0.2 mg/dL (0.2-1.0); CO2 27.9 mmol/L (21.0-32.0); CREATININE 0.83 mg/dL (0.55-1.02); Calcium 9.3 mg/dL (8.5-10.1); Chloride 101 mmol/L (98-107); Glucose 95 mg/dL (74-106); Potassium 4.7 mmol/L (3.5-5.1); Sodium 138 mmol/L (136-145)
== END 2019-08-20 02:09 ==
PROVIDERS: PCP Family Medicine; Visit Provider Internal Medicine Hematology & Oncology
DX: D47.3 Essential (hemorrhagic) thrombocythemia (principal)
CPT/HCPCS: 36415; 80053; 85025

== ENCOUNTER 2019-10-05 01:51 | Outpatient (CLI) | payer MEDICAID, SELFPAY ==
[2019-10-05 10:34] LABS: Absolute Basophil Count 0.04 k/cumm (0.0-0.2); Absolute Eosinophil Count 0.06 k/cumm (0.0-0.7); Absolute Lymphocyte Count 1.69 k/cumm (1.2-3.4); Absolute Monocyte Count 0.38 k/cumm (0.11-0.7); Absolute Neutrophil Count 1.76 k/cumm (1.2-6.7); Eosinophils % 1.5; HCT 35.7 % (36.0-46.0); HGB 11.9 g/dL (12.0-15.5); Mean Corp. HGB Concentration 33.3 g/dL (32.0-36.0); Mean Corpuscular Hemoglobin 37.3 pg (27.0-33.0); Mean Corpuscular Volume 111.9 fL (80-95); Mean Platelet Volume 9.3 fL (8.0-11.0); Monocytes % 9.7; Neutrophils % 44.8; RBC 3.19 m/cumm (4.00-5.20); RBC Distribution Width 14.2 % (11.7-14.6); White Blood Cell Count 3.93 k/cumm (4.4-10.8)
[2019-10-05 10:51] LABS: ALT 39 U/L (14-59); AST 28 U/L (15-37); Albumin 3.6 g/dL (3.4-5.0); Alkaline Phosphatase 88 U/L (46-116); Anion Gap 7.3 mmol/L (3-11); BUN 18 mg/dL (7-18); Bilirubin, Total 0.3 mg/dL (0.2-1.0); CO2 26.7 mmol/L (21.0-32.0); CREATININE 0.87 mg/dL (0.55-1.02); Calcium 8.9 mg/dL (8.5-10.1); Chloride 103 mmol/L (98-107); Glucose 94 mg/dL (74-106); Potassium 4.1 mmol/L (3.5-5.1); Sodium 137 mmol/L (136-145); Total Protein 7.4 g/dL (6.4-8.2)
[2019-10-05 11:11] LABS: Diff Comment RBC Morph Reviewed; Macrocytosis 3+; Platelet Count 626 x1000/uL (130-400)
== END 2019-10-05 02:11 ==
PROVIDERS: PCP Family Medicine; Visit Provider Internal Medicine Hematology & Oncology
DX: D47.3 Essential (hemorrhagic) thrombocythemia (principal)
CPT/HCPCS: 36415; 80053; 85025

== ENCOUNTER 2019-11-05 02:45 | Outpatient (CLI) | payer MEDICAID, SELFPAY ==
[2019-11-05 09:36] LABS: Abs Immature Grans 0.01 k/cumm (0.0-0.09); Absolute Basophil Count 0.04 k/cumm (0.0-0.2); Absolute Eosinophil Count 0.06 k/cumm (0.0-0.7); Absolute Lymphocyte Count 1.55 k/cumm (1.2-3.4); Absolute Monocyte Count 0.34 k/cumm (0.11-0.7); Absolute Neutrophil Count 2.06 k/cumm (1.2-6.7); Eosinophils % 1.5; HCT 38.5 % (36.0-46.0); HGB 12.9 g/dL (12.0-15.5); Immature Grans % 0.2 %; Lymphocytes % 38.2; Mean Corp. HGB Concentration 33.5 g/dL (32.0-36.0); Mean Corpuscular Hemoglobin 36.9 pg (27.0-33.0); Mean Platelet Volume 9.4 fL (8.0-11.0); Monocytes % 8.4; Neutrophils % 50.7; Platelet Count 638 x1000/uL (130-400); RBC Distribution Width 14.7 % (11.7-14.6); White Blood Cell Count 4.06 k/cumm (4.4-10.8)
[2019-11-05 09:50] LABS: Diff Comment RBC Morph Reviewed; Macrocytosis 3+; Stomatocytes 2+
[2019-11-05 10:33] LABS: ALT 40 U/L (14-59); AST 27 U/L (15-37); Albumin 3.8 g/dL (3.4-5.0); Alkaline Phosphatase 87 U/L (46-116); Anion Gap 9.1 mmol/L (3-11); BUN 17 mg/dL (7-18); Bilirubin, Total 0.3 mg/dL (0.2-1.0); CO2 24.9 mmol/L (21.0-32.0); CREATININE 0.82 mg/dL (0.55-1.02); Calcium 9.3 mg/dL (8.5-10.1); Chloride 103 mmol/L (98-107); Glucose 101 mg/dL (74-106); Potassium 4.7 mmol/L (3.5-5.1); Sodium 137 mmol/L (136-145); Total Protein 7.3 g/dL (6.4-8.2)
== END 2019-11-05 03:05 ==
PROVIDERS: PCP Family Medicine; Visit Provider Internal Medicine Hematology & Oncology
DX: D47.3 Essential (hemorrhagic) thrombocythemia (principal)
CPT/HCPCS: 36415; 80053; 85025

== ENCOUNTER 2019-12-14 03:11 | Outpatient (CLI) | payer MEDICAID, SELFPAY ==
[2019-12-14 09:09] LABS: Abs Immature Grans 0.02 10^3/uL (0.0-0.06); Absolute Basophil Count 0.04 10^3/uL (0.0-0.2); Absolute Eosinophil Count 0.06 10^3/uL (0.0-0.7); Absolute Lymphocyte Count 1.72 10^3/uL (1.2-3.4); Absolute Monocyte Count 0.38 10^3/uL (0.1-0.8); Absolute Neutrophil Count 1.78 10^3/uL (1.2-6.7); Eosinophils % 1.5; HCT 37.7 % (36.0-46.0); HGB 12.5 g/dL (11.2-15.7); Immature Grans % 0.5; MCH 36.2 pg (27.0-33.0); MCHC 33.2 % (32.0-36.0); MCV 109.3 fL (80-95); MPV 9.4 fL (8.0-11.0); Monocytes % 9.5; Neutrophils % 44.5; Nucleated RBC 0 %; Platelet Count 557 10^3/uL (130-400); RBC 3.45 10^6/uL (3.93-5.22); RDW 15.6 % (11.7-14.6); RDW-SD 63.3 fL
[2019-12-14 09:22] LABS: Diff Comment RBC Morph Reviewed
[2019-12-14 09:24] LABS: Macrocytosis 2+
[2019-12-14 10:24] LABS: ALT 52 U/L (14-59); AST 31 U/L (15-37); Albumin 3.8 g/dL (3.4-5.0); Alkaline Phosphatase 104 U/L (46-116); Anion Gap 5.9 mmol/L (3-11); BUN 19 mg/dL (7-18); Bilirubin, Total 0.3 mg/dL (0.2-1.0); CO2 27.1 mmol/L (21.0-32.0); CREATININE 0.79 mg/dL (0.55-1.02); Calcium 8.7 mg/dL (8.5-10.1); Chloride 105 mmol/L (98-107); Glucose 94 mg/dL (74-106); Potassium 3.9 mmol/L (3.5-5.1); Sodium 138 mmol/L (136-145); Total Protein 7.6 g/dL (6.4-8.2)
== END 2019-12-14 03:31 ==
PROVIDERS: PCP Family Medicine; Visit Provider Internal Medicine Hematology & Oncology
DX: D47.3 Essential (hemorrhagic) thrombocythemia (principal)
CPT/HCPCS: 36415; 80053; 85025

== ENCOUNTER 2020-02-24 00:58 | Outpatient (CLI) | payer MEDICAID, SELFPAY ==
[2020-02-24 08:49] LABS: Abs Immature Grans 0.01 10^3/uL (0.0-0.06); Absolute Basophil Count 0.05 10^3/uL (0.0-0.2); Absolute Eosinophil Count 0.08 10^3/uL (0.0-0.7); Absolute Lymphocyte Count 2.08 10^3/uL (1.2-3.4); Absolute Monocyte Count 0.38 10^3/uL (0.1-0.8); Basophils % 1.1; Eosinophils % 1.7; HCT 39.1 % (36.0-46.0); HGB 13.1 g/dL (11.2-15.7); Immature Grans % 0.2; Lymphocytes % 44.3; MCH 37.3 pg (27.0-33.0); MCHC 33.5 % (32.0-36.0); MCV 111.4 fL (80-95); MPV 9.9 fL (8.0-11.0); Monocytes % 8.1; Neutrophils % 44.6; Nucleated RBC 0 %; Platelet Count 650 10^3/uL (130-400); RBC 3.51 10^6/uL (3.93-5.22); RDW 15.2 % (11.7-14.6); RDW-SD 62.8 fL
[2020-02-24 10:15] LABS: ALT 55 U/L (14-59); AST 34 U/L (15-37); Albumin 3.9 g/dL (3.4-5.0); Alkaline Phosphatase 110 U/L (46-116); Anion Gap 11.7 mmol/L (3-11); BUN 18 mg/dL (7-18); Bilirubin, Total 0.3 mg/dL (0.2-1.0); CO2 23.3 mmol/L (21.0-32.0); CREATININE 0.79 mg/dL (0.55-1.02); Calcium 9.1 mg/dL (8.5-10.1); Chloride 102 mmol/L (98-107); Glucose 92 mg/dL (74-106); Potassium 4.9 mmol/L (3.5-5.1); Sodium 137 mmol/L (136-145); Total Protein 7.7 g/dL (6.4-8.2)
== END 2020-02-24 01:18 ==
PROVIDERS: PCP Family Medicine; Visit Provider Internal Medicine Hematology & Oncology
DX: D47.3 Essential (hemorrhagic) thrombocythemia (principal)
CPT/HCPCS: 36415; 80053; 85025

== ENCOUNTER 2020-05-15 12:52 | Outpatient (REF) | payer MEDICAID, SELFPAY ==
--- NOTE | 2020-05-15 11:05 | PAPFT_PTH ---
PATIENT: Edie Hawkins LOC: [facility] U#:[id number] AGE/SX: 64/F ROOM: RE05/15/[address]: MARK [place] : 1955 BED: DIS: 05/15/2020 SPEC #: [id number] RECD: 05/16/20 13:05 STATUS: KODY REMartell #: [id number] LUDWIG: 05/15/20 11:[address]: Luz Romero DEPT: [facility] Cytology RECD BY: Chata Ann Tissues: 1 - CX/ENDOCX FOR PAP SMEARS Procedures: PAP THIN PREP/UVM Screening HPV DNA PROBE Comments: [id number]
== END 2020-05-15 13:12 ==
LOC: LBN 12:52
PROVIDERS: PCP Nurse Practitioner Family; Visit Provider Nurse Practitioner Family
DX: R10.32 Left lower quadrant pain (principal); R10.31 Right lower quadrant pain; Z12.4 Encounter for screening for malignant neoplasm of cervix; Z11.51 Encounter for screening for human papillomavirus (HPV)
CPT/HCPCS: 88142; 87480; 87510; 87624; 87660

== ENCOUNTER 2020-05-16 04:03 | Outpatient (CLI) | payer MEDICAID, SELFPAY ==
[2020-05-16 08:14] LABS: Abs Immature Grans 0.01 10^3/uL (0.0-0.06); Absolute Basophil Count 0.04 10^3/uL (0.0-0.2); Absolute Eosinophil Count 0.06 10^3/uL (0.0-0.7); Absolute Lymphocyte Count 1.69 10^3/uL (1.2-3.4); Absolute Monocyte Count 0.31 10^3/uL (0.1-0.8); Absolute Neutrophil Count 2.26 10^3/uL (1.2-6.7); Basophils % 0.9; Eosinophils % 1.4; HCT 38.7 % (36.0-46.0); HGB 13.2 g/dL (11.2-15.7); Immature Grans % 0.2; Lymphocytes % 38.7; MCH 38.2 pg (27.0-33.0); MCHC 34.1 % (32.0-36.0); MCV 111.8 fL (80-95); MPV 9.7 fL (8.0-11.0); Monocytes % 7.1; Neutrophils % 51.7; Nucleated RBC 0 %; Platelet Count 626 10^3/uL (130-400); RBC 3.46 10^6/uL (3.93-5.22); RDW 15.3 % (11.7-14.6); RDW-SD 62.7 fL; WBC 4.37 10^3/uL (4.4-10.8)
[2020-05-16 09:40] LABS: ALT 57 U/L (14-59); AST 34 U/L (15-37); Albumin 3.9 g/dL (3.4-5.0); Alkaline Phosphatase 106 U/L (46-116); Anion Gap 9.1 mmol/L (3-11); BUN 22 mg/dL (7-18); Bilirubin, Total 0.3 mg/dL (0.2-1.0); CO2 25.9 mmol/L (21.0-32.0); CREATININE 0.85 mg/dL (0.55-1.02); Chloride 101 mmol/L (98-107); Glucose 109 mg/dL (74-106); Potassium 4.4 mmol/L (3.5-5.1); Sodium 136 mmol/L (136-145); Total Protein 7.7 g/dL (6.4-8.2)
== END 2020-05-16 04:23 ==
PROVIDERS: PCP Nurse Practitioner Family; Visit Provider Internal Medicine Hematology & Oncology
DX: D47.3 Essential (hemorrhagic) thrombocythemia (principal)
CPT/HCPCS: 36415; 80053; 85025

== ENCOUNTER 2020-05-29 01:48 | Outpatient (CLI) | payer MEDICAID, SELFPAY ==
--- NOTE | 2020-05-29 06:30 | DI.US_ITS ---
EXAM: US PELVIS transabdominal CLINICAL HISTORY: lower abdominal pain, r/o ovarian cyst, uterine maSS,RLQ AND LLQ PAIN,. TECHNIQUE: Transabdominal pelvic ultrasound was performed using standard protocol. COMPARISON: US PELVIS TRANSVAG from 10/15/2013 FINDINGS: KIDNEYS: Kidneys are symmetric in size. No evidence of renal calculi. No evidence of hydronephrosis. No renal mass or cyst identified. UTERUS: Position: Anteverted. Size: 5.8 long by 2.5 AP by 3.8 transverse cm Endometrium: 0.1 cm. Normal for patient's menstrual status. Myometrium: Unremarkable. Cervix: Unremarkable. OVARIES: The right ovary was not seen transabdominally. No right adnexal mass is seen sonographicall y. Left: 1 x 0.7 x 0.8 cm Cyst or mass: None. DOPPLER: Color: Symmetric and uniform flow to the left ovary. No hyperemia. Duplex: Normal left ovarian arterial waveform visualized. CUL-DE-SAC: Free fluid: None. Other: None. IMPRESSION: 1. Normal sonographic appearance of the kidneys. 2. Normal-appearing uterus with endometrial stripe within normal limits. 3. Unremarkable left ovary. The right ovary was not seen transabdominally. DATA REPOSITORY:
== END 2020-05-29 01:49 | disposition home or self-care (01) ==
LOC: DI 01:48
PROVIDERS: PCP Nurse Practitioner Family; Visit Provider Nurse Practitioner Family
DX: R10.31 Right lower quadrant pain (principal); R10.32 Left lower quadrant pain
CPT/HCPCS: 76830; 76856

== ENCOUNTER 2020-06-23 03:59 | Outpatient (CLI) | payer MEDICAID, SELFPAY ==
--- NOTE | 2020-06-23 06:00 | DI.MAMMO_ITS ---
EXAM: MG MAMMO SCREENING CLINICAL HISTORY: screening,Z12.39 TECHNIQUE: Bilateral full field digital CC and MLO mammographic images were obtained with 3D tomosyn thesis and utilizing computer aided detection (CAD). COMPARISON: Available for comparison. FINDINGS: Masses/Architectural Distortion: None seen. Microcalcifications: No suspicious pleomorphic-type are seen. Skin Thickening/Nipple Retraction: None. IMPRESSION: 1. No significant interval change with no specific features of malignancy noted. 2. Unless there is more urgent need, screening mammography is recommended, as per [employer] guidelines. BI-RADS Category 1 - Negative Breast Density - Category A - Almost entirely fatty Breast density category C or D implies that the patient has dense breast tissue. Dense breast tissue is very common and is not abnormal but dense breast tissue can make it harder to find cancer on a ma mmogram. Also, dense breast tissue may increase their breast cancer risk. This information about the result of the mammogram report was provided to the patient to raise their awareness. Use this report when you speak with the patient about their risks for breast cancer, which includes their family hist ory. At that time, you may recommend for more screening tests (Ultrasound or MRI) as they might be us eful based on their risk. A negative radiographic report should not delay biopsy if a dominant or clinically suspicious mass is present. Up to ten percent of cancers are not identified on mammography. A negative report may reinforce clinical impression. Adenosis and dense breasts may obscure an underlying neoplasm. False positive reports average 6 to 10%. Patient will receive a letter notifying them of these results.
== END 2020-06-23 04:19 ==
PROVIDERS: PCP Nurse Practitioner Family; Visit Provider Nurse Practitioner Family
DX: Z12.31 Encounter for screening mammogram for malignant neoplasm of breast (principal)
CPT/HCPCS: 77063; 77067

== ENCOUNTER 2020-08-15 08:55 | Outpatient (CLI) | payer MEDICAID, SELFPAY ==
[2020-08-15 09:34] LABS: Abs Immature Grans 0.01 10^3/uL (0.0-0.06); Absolute Basophil Count 0.06 10^3/uL (0.0-0.2); Absolute Eosinophil Count 0.08 10^3/uL (0.0-0.7); Absolute Lymphocyte Count 1.76 10^3/uL (1.2-3.4); Absolute Monocyte Count 0.39 10^3/uL (0.1-0.8); Absolute Neutrophil Count 2.68 10^3/uL (1.2-6.7); Basophils % 1.2; Eosinophils % 1.6; HCT 38.4 % (36.0-46.0); Immature Grans % 0.2; Lymphocytes % 35.3; MCH 37.9 pg (27.0-33.0); MCHC 33.9 % (32.0-36.0); MPV 9.8 fL (8.0-11.0); Monocytes % 7.8; Neutrophils % 53.9; Nucleated RBC 0 %; Platelet Count 687 10^3/uL (130-400); RBC 3.43 10^6/uL (3.93-5.22); RDW 14.6 % (11.7-14.6); WBC 4.98 10^3/uL (4.4-10.8)
[2020-08-15 11:02] LABS: ALT 97 U/L (14-59); AST 50 U/L (15-37); Albumin 4.1 g/dL (3.4-5.0); Alkaline Phosphatase 146 U/L (46-116); Anion Gap 9.9 mmol/L (3-11); BUN 13 mg/dL (7-18); Bilirubin, Total 0.3 mg/dL (0.2-1.0); CO2 25.1 mmol/L (21.0-32.0); CREATININE 0.8 mg/dL (0.55-1.02); Calcium 9.5 mg/dL (8.5-10.1); Chloride 104 mmol/L (98-107); Glucose 111 mg/dL (74-106); Sodium 139 mmol/L (136-145); Total Protein 7.6 g/dL (6.4-8.2)
== END 2020-08-15 08:56 | disposition home or self-care (01) ==
LOC: LBO 08:58
PROVIDERS: PCP Nurse Practitioner Family; Visit Provider Internal Medicine Hematology & Oncology
DX: D47.3 Essential (hemorrhagic) thrombocythemia (principal)
CPT/HCPCS: 36415; 80053; 85025

== ENCOUNTER 2020-09-30 07:13 | Emergency (ER) | payer MEDICAID, SELFPAY ==
[2020-09-30] VITALS (44 sets, daily range): BP systolic 113–139; BP diastolic 55–85; PULSE 62–104; RESP 13–31; TEMP 36.7; O2SAT 93–98
--- NOTE | 2020-09-30 07:15 | RT.EKG_ITS ---
APPROVED REPORT Exam: Resting ECG Reason for Exam: chest pain Patient Location: E HR:100 bpm ECG Measurements Heart Rate 100 AXIS MS 153 P 49 QRSd 97 QRS -24 QT 343 T 60 QTc 442 Conclusion Sinus tachycardia...rate> 99 Supraventricular bigeminy...bigeminy string>4 w/ SV complexes Physician: Rate 100, sinus tachycardia, no significant ST elevations or depressions. Q waves noted i n lead III. No evidence of STEMI.
--- NOTE | 2020-09-30 07:24 | W.ED.GENAD ---
Discharge Plan Disposition Patient Disposition: HOME Condition: Improving Discharge Details Clinical Impression: Chest wall pain Primary Care Provider: Luz Romero ED Provider: Katey Nowak Home Meds and New Rx's Prescriptions: Continued hydroxyurea 500 mg capsule 1,000 - 1,500 mg PO DAILY RF: 0 aspirin 325 MG tablet 325 mg PO DAILY RF: 0 lorazepam 0.5 mg tablet 0.5 mg PO Q6H PRN Qty: 30 RF: 0 metoprolol succinate 25 mg tablet extended release 24 hr 25 mg PO DAILY Qty: 90 RF: 4 divalproex 500 mg tablet,delayed release (DR/EC) 500 mg PO BID Qty: 180 RF: 4 verapamil [Verelan] 360 mg capsule,ext rel. pellets 24 hr 360 mg PO DAILY Qty: 90 RF: 4 baclofen 10 mg tablet 10 mg PO TID PRN (Reason: muscle spasm) Qty: 90 RF: 0 sumatriptan succinate 100 mg tablet 100 mg PO DIRECTED Qty: 60 RF: 5 Discharge Instructions Instructions: Chest Wall Pain (ED) Additional Instructions: Alternate ice and heat to the affected area(s) several times daily for 20 minutes at a time. Alternate tylenol and motrin as needed and directed for pain. Follow-up with your primary care doctor in 1 week for reevaluation and for referral for outpatient stress test if your symptoms do not improve or worsen. Return to the emergency department with any worsening or new concerning symptoms. Discharge Data Discharge Date/Time-TO BE ENTERED AT DEPARTURE: 09/30/20 11:25 Discharge Physician: Katey Nowak Medical Decision Making <Chris Ji DO - Last Filed: 09/30/20 07:37> This is a 64-year-old female with a past medical history of essential thrombocytosis, polycythemia vera, obstructive sleep apnea, hypertension, high cholesterol, migraines, celiac disease, who presents today for evaluation of chest pain. The patient seems to have 2 etiologies going on today. 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 Since then she has had mild pain in her shoulder extending towards her pectoralis muscles in her chest. However last night she got a severe sudden central pain which she describes as sharp. It is pleuritic in nature, however appears to be present at all times just made worse with breathing. In addition to that she also states that last night she became notably short of breath both at rest and with exertion, which is new for her. She has no history of cardiac disease otherwise, or family history of ischemic cardiac disease. She denies any cough fever or chills. She denies any tearing or ripping sensation, chest tightness or chest heaviness. No long trips, recent surgeries or procedures. No other complaints at this time. Physical exam demonstrates a female currently in no acute distress. Vital signs are stable. Oxygenation is stable at this time. No calf tenderness. No significant unilateral lower extremity swelling. Differential is broad but I suspect there may be 2 components that need further evaluation. I do suspect she likely has a musculoskeletal strain of her pectoralis muscles likely from the previous fall. Doubt fracture as she has no bony tenderness. However the new central chest pain in conjunction with the new shortness of breath are certainly concerning and need further evaluation. With her high clotting risk factor we will get a CTA to evaluate for PE. Dissection seems unlikely. We will perform ACS work-up. Case will be signed out to my colleague Dr. Katey Nowak for follow-up on labs, imaging and reassessment. EKG 7: 25 Rate 100, sinus tachycardia, no significant ST elevations or depressions. Q waves noted in lead III. No evidence of STEMI. <Katey Nowak DO - Last Filed: 09/30/20 14:56> 0800 --please see Dr. Ji's note for initial presentation, exam and plan. Case endorsed to follow-up on labs and imaging and final disposition. Plan is for repeat troponin and EKG and if work-up negative and patient feels better, will discharge to home. 64-year-old female with a history of essential thrombocytosis and polycythemia vera on hydroxyurea, and hypertension and migraine on metoprolol and verapamil presents for right-sided anterior chest pain that is worse with movement, deep breath. She was concerned today as the pain was associated with deep breath causing her to be short of breath. Oxygen saturation 97% on room air. She is speaking in full sentences. Lungs clear bilaterally. . She has no history of DVT or pulmonary embolism. She has significant tenderness to palpation to right anterior chest. Normal ROM b/l UE. Neurovascularly intact. Labs reviewed and unremarkable compared to baseline. Troponin negative. Suspect most likely musculoskeletal etiology of her pain. She does admit to a burning component which may be muscular rather than GI. Will give a dose of Toradol and Pepcid. 0930 --CT chest negative. 1100 --patient reassessed and she feels much better and would like to go home. Repeat troponin negative. Repeat EKG unchanged. Heart score 2, low risk and I feel that pt is appropriate for discharge and pt is agreeable. Advised to follow-up with her primary care doctor for reevaluation and for referral for stress test if her symptoms do not improve or worsen. Usual and customary return precautions given prior to discharge. Medical Records Medical records reviewed: Yes I reviewed the patient's medical records. Imaging Data Radiologic Study: Radiologist's impression: CTA Chest With Contrast Exam date and time: 09/30/2020 7:25 AM Age: 64 years old Clinical indication: Other: Cp w SOB, high risk for pe TECHNIQUE: Imaging protocol: Computed tomographic angiography of the chest with contrast. 3D rendering (Not supervised by radiologist): MIP and/or 3D reconstructed images were created by the technologist. Radiation optimization: All CT scans at this facility use at least one of these dose optimization techniques: automated exposure control; mA and/or kV adjustment per patient size (includes targeted exams where dose is matched to clinical indication); or iterative reconstruction. Contrast material: OMNIPAQUE 350; Contrast volume: 100 ml; Contrast route: INTRAVENOUS (IV); COMPARISON: CT Thorax^CHEST W ROUTINE (Adult) 01/14/2018 8:09 AM FINDINGS: Pulmonary arteries: No evidence of pulmonary embolus to the segmental level. Aorta: No aneurysm of the aorta. No dissection of the aorta. Lungs: Mild opacities in the lingula and both lower lobes may represent atelectasis or pneumonia.. Calcified granulomas in the lung bases. Pleural based nodule in the left lower lobe 5 mm Pleural spaces: Unremarkable. No pneumothorax. No pleural effusion. Heart: Unremarkable. No cardiomegaly. No pericardial effusion. Lymph nodes: Unremarkable. No enlarged lymph nodes. Gallbladder and bile ducts: Cholecystectomy Adrenal glands: 2.1 cm Left adrenal adenoma measures-3 Hounsfield units. Bones/joints: Unremarkable. No acute fracture. Soft tissues: Unremarkable. IMPRESSION: 1. No evidence of pulmonary embolus to the segmental level. 2. No aneurysm of the aorta. 3. No dissection of the aorta. 4. Mild opacities in the lingula and both lower lobes may represent atelectasis or pneumonia.. Lab Data Lab results reviewed: Yes I reviewed the patient's lab results. Labs: Laboratory Tests Range/Units 09/30/20 09/30/20 09/30/20 07:30 07:30 07:30 WBC (4.4-10.8) 10^3/uL 5.32 RBC (3.93-5.22) 10^6/uL 3.43 L Hgb (11.2-15.7) g/dL 13.5 Hct (36.0-46.0) % 39.1 MCV (80-95) fL 114.0 H MCH (27.0-33.0) pg 39.4 H MCHC (32.0-36.0) % 34.5 RDW (11.7-14.6) % 15.0 H Plt Count (130-400) 10^3/uL 740 H MPV (8.0-11.0) fL 9.7 Immature Gran % 0.4 Neutrophils % 51.7 Lymphocytes % 37.0 Monocytes % 7.9 Eosinophils % 1.7 Basophils % 1.3 Nucleated RBC % % 0 Absolute Neutrophils (1.2-6.7) 10^3/uL 2.75 Absolute Lymphocytes (1.2-3.4) 10^3/uL 1.97 Absolute Monocytes (0.1-0.8) 10^3/uL 0.42 Absolute Eosinophils (0.0-0.7) 10^3/uL 0.09 Absolute Basophils (0.0-0.2) 10^3/uL 0.07 RBC Morphology See below Polychromasia Present Macrocytosis 3+ Stomatocytes 2+ PT (9.3-11.0) sec 9.9 INR (0.9-1.1) 1.0 APTT (21.0-27.5) sec 25.6 Sodium (136-145) mmol/L 144 Potassium (3.5-5.1) mmol/L 3.6 Chloride (98-107) mmol/L 105 Carbon Dioxide (21.0-32.0) mmol/L 25.3 Anion Gap (3-11) mmol/L 13.7 H BUN (7-18) mg/dL 14 Creatinine (0.55-1.02) mg/dL 1.0 Estimated GFR/1.73 m2 (mL/min/1.73m2) 56.18 Glucose (74-106) mg/dL 126 H Calcium (8.5-10.1) mg/dL 9.4 Magnesium (1.8-2.4) mg/dL 1.9 Total Bilirubin (0.2-1.0) mg/dL 0.4 AST (15-37) U/L 60 H ALT (14-59) U/L 94 H Alkaline Phosphatase (46-116) U/L 152 H Troponin I (<0.06) ng/mL < 0.05 NT-Pro-B Natriuret Pep (<300) pg/mL 83 Total Protein (6.4-8.2) g/dL 8.3 H Albumin (3.4-5.0) g/dL 4.2 Range/Units 09/30/20 10:20 WBC (4.4-10.8) 10^3/uL RBC (3.93-5.22) 10^6/uL Hgb (11.2-15.7) g/dL Hct (36.0-46.0) % MCV (80-95) fL MCH (27.0-33.0) pg MCHC (32.0-36.0) % RDW (11.7-14.6) % Plt Count (130-400) 10^3/uL MPV (8.0-11.0) fL Immature Gran % Neutrophils % Lymphocytes % Monocytes % Eosinophils % Basophils % Nucleated RBC % % Absolute Neutrophils (1.2-6.7) 10^3/uL Absolute Lymphocytes (1.2-3.4) 10^3/uL Absolute Monocytes (0.1-0.8) 10^3/uL Absolute Eosinophils (0.0-0.7) 10^3/uL Absolute Basophils (0.0-0.2) 10^3/uL RBC Morphology Polychromasia Macrocytosis Stomatocytes PT (9.3-11.0) sec INR (0.9-1.1) APTT (21.0-27.5) sec Sodium (136-145) mmol/L Potassium (3.5-5.1) mmol/L Chloride (98-107) mmol/L Carbon Dioxide (21.0-32.0) mmol/L Anion Gap (3-11) mmol/L BUN (7-18) mg/dL Creatinine (0.55-1.02) mg/dL Estimated GFR/1.73 m2 (mL/min/1.73m2) Glucose (74-106) mg/dL Calcium (8.5-10.1) mg/dL Magnesium (1.8-2.4) mg/dL Total Bilirubin (0.2-1.0) mg/dL AST (15-37) U/L ALT (14-59) U/L Alkaline Phosphatase (46-116) U/L Troponin I (<0.06) ng/mL < 0.05 NT-Pro-B Natriuret Pep (<300) pg/mL Total Protein (6.4-8.2) g/dL Albumin (3.4-5.0) g/dL ECG Data Attestation: I personally reviewed and interpreted this ECG (s) as follows: Interpretation: #1 -- Rate of 100, sinus, no STEMI #2 -- Rate of 65, sinus, no acute ST elevation or depression. HPI <Chris Ji DO - Last Filed: 09/30/20 07:37> General Date/Time Provider Initiated Documentation: 09/30/20 07:14. HPI Narrative: This is a 64-year-old female with a past medical history of essential thrombocytosis, polycythemia vera, obstructive sleep apnea, hypertension, high cholesterol, migraines, celiac disease, who presents today for evaluation of chest pain. The patient seems to have 2 etiologies going on today. 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 Since then she has had mild pain in her shoulder extending towards her pectoralis muscles in her chest. However last night she got a severe sudden central pain which she describes as sharp. It is pleuritic in nature, however appears to be present at all times just made worse with breathing. In addition to that she also states that last night she became notably short of breath both at rest and with exertion, which is new for her. She has no history of cardiac disease otherwise, or family history of ischemic cardiac disease. She denies any cough fever or chills. She denies any tearing or ripping sensation, chest tightness or chest heaviness. No long trips, recent surgeries or procedures. No other complaints at this time. Related Data Home Medications Medication Instructions Recorded Confirmed aspirin 325 mg PO DAILY tab-cap 09/18/12 09/30/20 lorazepam 0.5 mg tablet 0.5 mg PO Q6H PRN #30 tab-cap 12/09/19 09/30/20 metoprolol succinate 25 mg 25 mg PO DAILY #90 tab 02/27/20 09/30/20 tablet,extended release 24 hr divalproex 500 mg tablet,delayed 500 mg PO BID #180 tab-cap 03/19/20 06/15/20 release baclofen 10 mg tablet 10 mg PO TID PRN #90 tab-cap 04/26/20 09/30/20 verapamil 360 mg 24 hr 360 mg PO DAILY #90 tab-cap 04/26/20 09/30/20 capsule,extended release hydroxyurea 500 mg capsule 1,000 - 1,500 mg PO DAILY cap 06/15/20 09/30/20 sumatriptan succinate 100 mg tablet 100 mg PO DIRECTED #60 tab 09/21/20 09/30/20 Previous Rx's Medication Instructions Recorded lorazepam 0.5 mg tablet 0.5 mg PO Q6H PRN #30 tab-cap 12/09/19 metoprolol succinate 25 mg 25 mg PO DAILY #90 tab 02/27/20 tablet,extended release 24 hr divalproex 500 mg tablet,delayed 500 mg PO BID #180 tab-cap 03/19/20 release baclofen 10 mg tablet 10 mg PO TID PRN #90 tab-cap 04/26/20 verapamil 360 mg 24 hr 360 mg PO DAILY #90 tab-cap 04/26/20 capsule,extended release sumatriptan succinate 100 mg tablet 100 mg PO DIRECTED #60 tab 09/21/20 Allergies Allergy/AdvReac Type Severity Reaction Status Date / Time hydrochlorothiazide Allergy Verified 09/30/20 07:35 carbamazepine AdvReac Severe nausea and Verified 09/30/20 07:35 bloating lisinopril AdvReac diarrhea Verified 09/30/20 07:35 topiramate [From Topamax] AdvReac tachy Verified 09/30/20 07:35 Adhesive Tab Allergy Intermediate skin Uncoded 09/30/20 07:35 blistered Review of Systems <Chris Ji DO - Last Filed: 09/30/20 07:37> All systems reviewed & are unremarkable except as noted in HPI and below PFSH <Chris Ji DO - Last Filed: 09/30/20 07:37> Medical History Atrophic vaginitis Celiac disease Essential hypertension Essential thrombocytosis [place] [facility] [place] Facial basal cell cancer Hyperlipidemia Migraine headache without aura LIZ (obstructive sleep apnea) Polycythemia vera Surgical History History of esophagogastroduodenoscopy (EGD) (04/24/12) S/P cholecystectomy (06/14/15) S/P colonoscopy (02/01/11) S/P ORIF (open reduction internal fixation) fracture Family History Mother Heart disease Chronic kidney disease Respiratory failure Father Type 2 diabetes mellitus Sister Chronic kidney disease Sister No problems noted. Sister Breast cancer 50s Sister Ovarian cancer Daughter No problems noted. Daughter No problems noted. Maternal Grandfather No problems noted. Maternal Grandmother No problems noted. Paternal Grandfather No problems noted. Paternal Grandmother , 37 Leukemia Social History Smoking/Tobacco Use Status: Former Tobacco Use Tobacco: How many years used: 25 Smoking risk assessment performed?: Yes Alcohol Intake: never Drug use: Never Do you feel safe at home: Yes Do you feel safe in your relationship?: Yes Female Reproductive History Menstrual Menopause type: natural History History 2 Para 2 Hx # Term Pregnancies Multiple births Hx # Pregnancies Ectopic pregnancies AB induced Hx Number of Living Children 2 AB spontaneous Exam <Chris Ji DO - Last Filed: 09/30/20 07:37> Narrative Exam Narrative: 1.Const: Well-nourished, Well-developed, appearing stated age 2.Eyes: PERRL, no conjunctival injection, and symmetrical lids. 3.ENT: Atraumatic external nose and ears. Moist MM. Neck: Symmetric, trachea midline, No thyromegaly. 4.CVS: +S1/S2, No murmurs or gallops. Peripheral pulses 2+ and equal in all extremities. Brisk capillary refill in all extremities. Radial pulses +2 and symmetric. 5.RESP: Unlabored respiratory effort. Clear to auscultation bilaterally. No wheezes rales or rhonchi 6.GI: Soft, Nontender/Nondistended, No hepatosplenomegaly. No guarding or rebound. 7.MSK: Normocephalic/Atraumatic, Extremities w/o deformity or ttp No cyanosis or clubbing, Normal movement of all extremities patient does demonstrate. Mild reproducible tenderness over the right pectoralis muscles. This is made worse with movement of the right shoulder. The pain at these muscle insertions is made worse in particular with stress or strain against these muscles. No subcutaneous crepitus. No tenderness over the right shoulder itself. Radial pulses 8.Skin: Warm, Dry. No rashes or lesions. 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 Sensation grossly intact, no focal neurologic deficits. 10.Psych: (AAO) x3. Appropriate mood and affect
[2020-09-30] MEDS: Lidocaine 5% Patch 1 PATCH TP (07:35)
[2020-09-30 07:48] LABS: Abs Immature Grans 0.02 10^3/uL (0.0-0.06); Absolute Basophil Count 0.07 10^3/uL (0.0-0.2); Absolute Eosinophil Count 0.09 10^3/uL (0.0-0.7); Absolute Lymphocyte Count 1.97 10^3/uL (1.2-3.4); Absolute Monocyte Count 0.42 10^3/uL (0.1-0.8); Absolute Neutrophil Count 2.75 10^3/uL (1.2-6.7); Basophils % 1.3; Eosinophils % 1.7; HCT 39.1 % (36.0-46.0); HGB 13.5 g/dL (11.2-15.7); Immature Grans % 0.4; MCH 39.4 pg (27.0-33.0); MCHC 34.5 % (32.0-36.0); MPV 9.7 fL (8.0-11.0); Monocytes % 7.9; Neutrophils % 51.7; Nucleated RBC 0 %; RBC 3.43 10^6/uL (3.93-5.22); RDW-SD 63.1 fL; WBC 5.32 10^3/uL (4.4-10.8)
[2020-09-30 08:03] LABS: PTT Activated 25.6 sec (21.0-27.5); Prothrombin Time 9.9 sec (9.3-11.0)
[2020-09-30 08:05] LABS: ALT 94 U/L (14-59); AST 60 U/L (15-37); Albumin 4.2 g/dL (3.4-5.0); Alkaline Phosphatase 152 U/L (46-116); Anion Gap 13.7 mmol/L (3-11); BUN 14 mg/dL (7-18); Bilirubin, Total 0.4 mg/dL (0.2-1.0); CO2 25.3 mmol/L (21.0-32.0); Calcium 9.4 mg/dL (8.5-10.1); Chloride 105 mmol/L (98-107); Estimated GFR 56.18 (mL/min/1.73m2); Glucose 126 mg/dL (74-106); Magnesium 1.9 mg/dL (1.8-2.4); NT-proBNP 83 pg/mL (<300); Potassium 3.6 mmol/L (3.5-5.1); Sodium 144 mmol/L (136-145); Total Protein 8.3 g/dL (6.4-8.2); Troponin I < 0.05 ng/mL (<0.06)
[2020-09-30 08:06] LABS: Diff Comment Diff Reviewed; Macrocytosis 3+; Platelet Count 740 10^3/uL (130-400); Polychromasia Present; Stomatocytes 2+
[2020-09-30] MEDS: Normal Saline - Diluent 50 ML VIAL IV (08:28)
[2020-09-30] MEDS: Omnipaque 350 MG/ML 100 ML BTL IJ (08:28)
[2020-09-30] MEDS: Normal Saline Flush 10 ML SYR IVP ×2 (08:29→09:07)
--- NOTE | 2020-09-30 08:30 | DI.CT_ITS ---
Exam(s) CT CHEST PE CTA EXAM: CT CHEST PE CTA CLINICAL HISTORY: central CP w/ SOB, high risk for PE. TECHNIQUE: Imaging Protocol: Axial CT angiography was performed with multi-slice acquisition and mu lti-planar and/or 3D reconstructions. CONTRAST MATERIAL: Intravenous: Omnipaque 350 Contrast volume:100 mL COMPARISON: CT ABD PELVIS WITH CONTRAST from 01/30/2010 CT ABD PELVIS WITH CONTRAST from 01/30/2010 FINDINGS: Tracheobronchial tree: Patent where visualized. Pulmonary parenchyma: No consolidation or dominant measurable mass. No architectural distortion. Ther e are bilateral calcified granuloma. There is a stable 3 mm nodule in the medial aspect of the right lower lobe. There is a 3 mm noncalcified pulmonary nodule in the medial aspect of the left lower lo be. (Series 5, image 346). There is scarring/atelectasis/pneumonia in the lung bases and right midd le lobe. Pulmonary Arteries: No evidence of filling defect to suggest pulmonary emboli. Mediastinum and Gloria: No dominant adenopathy or fluid collection. Visualized thyroid gland: There is a 0.6 cm hypodense nodule in the right lobe of the thyroid gland. No associated suspicious findings are seen. No follow-up is recommended. Pleura: No effusion or pneumothorax. Heart: The heart is not dilated. Mild coronary artery calcification. No pericardial effusion. Aorta: The ascending thoracic aorta measures 4 x 4.2 cm. There is mild atherosclerosis. No evidence of dissection. Upper abdomen: There is a stable 2 x 1.7 cm hypodense left adrenal nodule. This likely reflects an adenoma. No further follow-up is recommended. Soft tissues: Unremarkable. Bones: Within normal limits for the patient's age. IMPRESSION: 1. No evidence of pulmonary embolism or thoracic aortic dissection. 2. Left lower lobe pulmonary nodule. In low risk patients, no follow-up is recommended. In high ris k patients, follow-up examination in 12 months is recommended. 3. Bilateral basilar opacities. These may represent scarring/atelectasis/pneumonia. Please correlat e clinically. RADIATION DOSE DELIVERED: 460.36mGy.cm Total DLP DATA REPOSITORY: All CT scans at this facility are submitted to the National Radiology Data Registry (NRDR) Dose Index Registry (DIR) with the [employer] (ACR). RADIATION OPTIMIZATION: All CT scans at this facility use at least one of these dose optimization te chniques: automated exposure control; mA and/or kV adjustment per patient size (includes targeted exa ms where dose is matched to clinical indication); or iterative reconstruction.
[2020-09-30] MEDS: Ketorolac 30 MG/ML VIAL IVP (09:00)
[2020-09-30] MEDS: FAMOTIDINE 20 MG/50 ML BAG 200 MG IVPB (09:07)
[2020-09-30] MEDS: Normal Saline 500 ML IV (09:13)
--- NOTE | 2020-09-30 09:15 | RT.EKG_ITS ---
APPROVED REPORT Exam: Resting ECG Reason for Exam: chest pressure Patient Location: E HR:65 bpm ECG Measurements Heart Rate 65 AXIS NC 164 P 30 QRSd 97 QRS -13 QT 407 T 32 QTc 422 Conclusion Sinus rhythm...normal P axis, V-rate 60- 99 Consider anterior infarct...Q >30mS in V2-V5. No STEMI. I have reviewed and interpreted ECG and agree with software generated interpretation.
--- NOTE | 2020-09-30 09:31 | DI.VRAD_ITS ---
PROCEDURE INFORMATION: Exam: CTA Chest With Contrast Exam date and time: 09/30/2020 7:25 AM Age: 64 years old Clinical indication: Other: Cp w SOB, high risk for pe TECHNIQUE: Imaging protocol: Computed tomographic angiography of the chest with contrast. 3D rendering (Not supervised by radiologist): MIP and/or 3D reconstructed images were created by the technologist. Radiation optimization: All CT scans at this facility use at least one of these dose optimization techniques: automated exposure control; mA and/or kV adjustment per patient size (includes targeted exams where dose is matched to clinical indication); or iterative reconstruction. Contrast material: OMNIPAQUE 350; Contrast volume: 100 ml; Contrast route: INTRAVENOUS (IV); COMPARISON: CT Thorax^CHEST W ROUTINE (Adult) 01/14/2018 8:09 AM FINDINGS: Pulmonary arteries: No evidence of pulmonary embolus to the segmental level. Aorta: No aneurysm of the aorta. No dissection of the aorta. Lungs: Mild opacities in the lingula and both lower lobes may represent atelectasis or pneumonia.. Calcified granulomas in the lung bases. Pleural based nodule in the left lower lobe 5 mm Pleural spaces: Unremarkable. No pneumothorax. No pleural effusion. Heart: Unremarkable. No cardiomegaly. No pericardial effusion. Lymph nodes: Unremarkable. No enlarged lymph nodes. Gallbladder and bile ducts: Cholecystectomy Adrenal glands: 2.1 cm Left adrenal adenoma measures-3 Hounsfield units. Bones/joints: Unremarkable. No acute fracture. Soft tissues: Unremarkable. IMPRESSION: 1. No evidence of pulmonary embolus to the segmental level. 2. No aneurysm of the aorta. 3. No dissection of the aorta. 4. Mild opacities in the lingula and both lower lobes may represent atelectasis or pneumonia.. Dictated and Authenticated by: Elizabeth Moss MD. Ordering:UNIQUE Perez MD
[2020-09-30 10:55] LABS: Troponin I < 0.05 ng/mL (<0.06)
== END 2020-09-30 11:25 | disposition home or self-care (01) ==
PROVIDERS: Student in an Organized Health Care Education/Training Program; Emergency Provider Physician Assistant; PCP Nurse Practitioner Family
DX: R07.89 Other chest pain (principal); R06.02 Shortness of breath; W19.XXXA Unspecified fall, initial encounter; X50.9XXA Other and unspecified overexertion or strenuous movements or postures, initial encounter; D47.3 Essential (hemorrhagic) thrombocythemia; D45 Polycythemia vera
CPT/HCPCS: 36415; 71275; 80053; 93005; 96361; 96365; 96375; 99285; 83735; 83880; 84484; 85025; 85610; 85730; 93010; J1885; J3490

== ENCOUNTER 2020-11-16 04:04 | Outpatient (CLI) | payer MEDICAID, SELFPAY ==
[2020-11-16 12:31] LABS: Abs Immature Grans 0.01 10^3/uL (0.0-0.06); Absolute Basophil Count 0.04 10^3/uL (0.0-0.2); Absolute Eosinophil Count 0.05 10^3/uL (0.0-0.7); Absolute Lymphocyte Count 1.33 10^3/uL (1.2-3.4); Absolute Neutrophil Count 1.74 10^3/uL (1.2-6.7); Basophils % 1.2; Eosinophils % 1.4; HCT 35.1 % (36.0-46.0); HGB 11.8 g/dL (11.2-15.7); Immature Grans % 0.3; Lymphocytes % 38.3; MCH 39.3 pg (27.0-33.0); MCHC 33.6 % (32.0-36.0); Monocytes % 8.6; Neutrophils % 50.2; Nucleated RBC 0 %; Platelet Count 613 10^3/uL (130-400); RDW 14.6 % (11.7-14.6); RDW-SD 63.2 fL; WBC 3.47 10^3/uL (4.4-10.8)
[2020-11-16 12:47] LABS: ALT 86 U/L (14-59); AST 57 U/L (15-37); Alkaline Phosphatase 128 U/L (46-116); Anion Gap 7.9 mmol/L (3-11); BUN 15 mg/dL (7-18); Bilirubin, Total 0.4 mg/dL (0.2-1.0); CO2 27.1 mmol/L (21.0-32.0); CREATININE 0.9 mg/dL (0.55-1.02); Calcium 8.9 mg/dL (8.5-10.1); Chloride 106 mmol/L (98-107); Glucose 92 mg/dL (74-106); Sodium 141 mmol/L (136-145); Total Protein 7.3 g/dL (6.4-8.2)
[2020-11-16 13:01] LABS: Hemoglobin A1C 5.2 % (<5.7)
== END 2020-11-16 04:05 | disposition home or self-care (01) ==
LOC: LOS 04:05
PROVIDERS: Internal Medicine Hematology & Oncology; PCP Nurse Practitioner Family; Visit Provider Nurse Practitioner Family
DX: D47.3 Essential (hemorrhagic) thrombocythemia (principal); E78.5 Hyperlipidemia, unspecified; I10 Essential (primary) hypertension; E66.9 Obesity, unspecified
CPT/HCPCS: 36415; 80053; 83036; 85025

== ENCOUNTER 2020-11-23 04:43 | Outpatient (CLI) | payer MEDICAID, SELFPAY ==
[2020-11-23 08:56] LABS: Calculated LDL 145 mg/dL (<100); Cholesterol 232 mg/dL (<200); HDL Cholesterol 53 mg/dL (40-60); Triglyceride 170 mg/dL (<150)
== END 2020-11-23 04:44 | disposition home or self-care (01) ==
LOC: LBO 04:43
PROVIDERS: PCP Nurse Practitioner Family; Visit Provider Nurse Practitioner Family
DX: E78.5 Hyperlipidemia, unspecified (principal)
CPT/HCPCS: 36415; 80061

== ENCOUNTER 2021-02-13 18:38 | Outpatient (CLI) | payer MEDICAID, SELFPAY ==
--- NOTE | 2021-02-13 10:30 | DI.RAD_ITS ---
Exam(s) XR ANKLE LT COMPLETE EXAM: XR ANKLE LT COMPLETE CLINICAL HISTORY: chronic anterior ankle pain, no trauma,m25.572 TECHNIQUE: 2D digital imaging was performed. COMPARISON: No exams were available for comparison FINDINGS: BONES: No acute fracture is present. No bony destructive lesion is seen. JOINTS:The ankle mortise is normally aligned. SOFT TISSUE: Normal. IMPRESSION: Unremarkable radiographs of the left ankle. DATA REPOSITORY: RADIATION DOSE DELIVERED:
--- NOTE | 2021-02-13 10:30 | DI.US_ITS ---
Exam(s) US LOWER EXTREMITY VENOUS LT EXAM: US LOWER EXTREMITY VENOUS LT CLINICAL HISTORY: increase ankle/fooot pain with edema, thrombocytos,r60.9. TECHNIQUE: Lower extremity venous ultrasound performed using grayscale, color-flow, and spectral Do ppler analysis. COMPARISON: No exams were available for comparison FINDINGS: The common femoral, femoral and popliteal veins demonstrate normal compressibility, augmentation, and color Doppler. The posterior tibial veins are patent. No saphenous vein thrombosis or other superfi cial venous thrombosis is seen. No hematoma or Lopes's cyst is seen. IMPRESSION: Negative lower extremity ultrasound. No evidence of DVT. DATA REPOSITORY:
== END 2021-02-13 18:58 ==
PROVIDERS: PCP Nurse Practitioner Family; Visit Provider Family Medicine
DX: M25.572 Pain in left ankle and joints of left foot (principal); R60.9 Edema, unspecified; D47.3 Essential (hemorrhagic) thrombocythemia
CPT/HCPCS: 73610; 93971

== ENCOUNTER 2021-03-20 02:33 | Outpatient (CLI) | payer MEDICAID, SELFPAY ==
[2021-03-20 08:06] LABS: Abs Immature Grans 0.01 10^3/uL (0.0-0.06); Absolute Basophil Count 0.07 10^3/uL (0.0-0.2); Absolute Eosinophil Count 0.12 10^3/uL (0.0-0.7); Absolute Lymphocyte Count 1.63 10^3/uL (1.2-3.4); Absolute Monocyte Count 0.39 10^3/uL (0.1-0.8); Absolute Neutrophil Count 2.22 10^3/uL (1.2-6.7); Basophils % 1.6; Eosinophils % 2.7; HCT 36.6 % (36.0-46.0); HGB 12.4 g/dL (11.2-15.7); Immature Grans % 0.2; Lymphocytes % 36.7; MCH 40.3 pg (27.0-33.0); MCHC 33.9 % (32.0-36.0); MCV 118.8 fL (80-95); MPV 9.5 fL (8.0-11.0); Monocytes % 8.8; Nucleated RBC 0 %; Platelet Count 606 10^3/uL (130-400); RBC 3.08 10^6/uL (3.93-5.22); RDW 13.6 % (11.7-14.6); RDW-SD 59.3 fL; WBC 4.44 10^3/uL (4.4-10.8)
[2021-03-20 08:19] LABS: ALT 70 U/L (14-59); AST 50 U/L (15-37); Albumin 3.9 g/dL (3.4-5.0); Alkaline Phosphatase 149 U/L (46-116); BUN 10 mg/dL (7-18); Bilirubin, Total 0.3 mg/dL (0.2-1.0); CREATININE 0.8 mg/dL (0.55-1.02); Chloride 103 mmol/L (98-107); Glucose 100 mg/dL (74-106); Potassium 3.8 mmol/L (3.5-5.1); Sodium 140 mmol/L (136-145); Total Protein 7.7 g/dL (6.4-8.2)
== END 2021-03-20 02:34 | disposition home or self-care (01) ==
LOC: LBO 02:34
PROVIDERS: PCP Nurse Practitioner Family; Visit Provider Internal Medicine Hematology & Oncology
DX: D47.3 Essential (hemorrhagic) thrombocythemia (principal)
CPT/HCPCS: 36415; 80053; 85025

== ENCOUNTER 2021-04-23 02:41 | Outpatient (CLI) | payer MEDICAID, SELFPAY ==
[2021-04-23 13:37] LABS: Absolute Basophil Count 0.04 10^3/uL (0.0-0.2); Absolute Eosinophil Count 0.08 10^3/uL (0.0-0.7); Absolute Lymphocyte Count 1.58 10^3/uL (1.2-3.4); Absolute Neutrophil Count 2.13 10^3/uL (1.2-6.7); Eosinophils % 1.9; HCT 34.7 % (36.0-46.0); HGB 11.9 g/dL (11.2-15.7); Lymphocytes % 38.3; MCHC 34.3 % (32.0-36.0); MCV 119.7 fL (80-95); MPV 9.4 fL (8.0-11.0); Monocytes % 7.3; Neutrophils % 51.5; Nucleated RBC 0 %; Platelet Count 478 10^3/uL (130-400); RDW 13.9 % (11.7-14.6); RDW-SD 61.9 fL; WBC 4.13 10^3/uL (4.4-10.8)
[2021-04-23 13:51] LABS: ALT 61 U/L (14-59); AST 44 U/L (15-37); Albumin 3.9 g/dL (3.4-5.0); Alkaline Phosphatase 133 U/L (46-116); Anion Gap 7.9 mmol/L (3-11); BUN 13 mg/dL (7-18); Bilirubin, Total 0.3 mg/dL (0.2-1.0); CO2 28.1 mmol/L (21.0-32.0); CREATININE 0.7 mg/dL (0.55-1.02); Calcium 8.6 mg/dL (8.5-10.1); Chloride 104 mmol/L (98-107); Glucose 102 mg/dL (74-106); Potassium 3.6 mmol/L (3.5-5.1); Sodium 140 mmol/L (136-145); Total Protein 7.8 g/dL (6.4-8.2)
== END 2021-04-23 02:42 | disposition home or self-care (01) ==
LOC: LBO 02:41
PROVIDERS: PCP Nurse Practitioner Family; Visit Provider Internal Medicine Hematology & Oncology
DX: D47.3 Essential (hemorrhagic) thrombocythemia (principal)
CPT/HCPCS: 36415; 80053; 85025

== ENCOUNTER 2021-07-20 00:53 | Outpatient (CLI) | payer MEDICAID, SELFPAY ==
--- NOTE | 2021-07-20 06:30 | DI.MAMMO_ITS ---
Exam(s) MAMMO SCREENING EXAM: MAMMO SCREENING CLINICAL HISTORY: screening,z12.39 TECHNIQUE: Bilateral full field digital CC and MLO mammographic images were obtained with 3D tomosyn thesis and utilizing computer aided detection (CAD). COMPARISON: Available for comparison. FINDINGS: Masses/Architectural Distortion: None seen. Microcalcifications: No suspicious pleomorphic-type are seen. Skin Thickening/Nipple Retraction: None. IMPRESSION: 1. No significant interval change with no specific features of malignancy noted. 2. Unless there is more urgent need, screening mammography is recommended, as per [employer] guidelines. BI-RADS Category 1 - Negative Breast Density - Category A - Almost entirely fatty Breast density category C or D implies that the patient has dense breast tissue. Dense breast tissue is very common and is not abnormal but dense breast tissue can make it harder to find cancer on a ma mmogram. Also, dense breast tissue may increase their breast cancer risk. This information about the result of the mammogram report was provided to the patient to raise their awareness. Use this report when you speak with the patient about their risks for breast cancer, which includes their family hist ory. At that time, you may recommend for more screening tests (Ultrasound or MRI) as they might be us eful based on their risk. A negative radiographic report should not delay biopsy if a dominant or clinically suspicious mass is present. Up to ten percent of cancers are not identified on mammography. A negative report may reinforce clinical impression. Adenosis and dense breasts may obscure an underlying neoplasm. False positive reports average 6 to 10%. Patient will receive a letter notifying them of these results.
== END 2021-07-20 01:13 ==
PROVIDERS: PCP Nurse Practitioner Family; Visit Provider Nurse Practitioner Family
DX: Z12.31 Encounter for screening mammogram for malignant neoplasm of breast (principal)
CPT/HCPCS: 77063; 77067

== ENCOUNTER 2021-08-13 11:49 | Outpatient (REF) | payer MEDICAID, SELFPAY ==
[2021-08-14 15:20] LABS: COVID-19 RT-PCR UVMMC Result Positive (Negative)
== END 2021-08-13 11:50 | disposition home or self-care (01) ==
LOC: NCHCN 11:49
PROVIDERS: PCP Nurse Practitioner Family; Visit Provider Physician Assistant
DX: Z20.822 Contact with and (suspected) exposure to COVID-19 (principal)
CPT/HCPCS: U0003

== ENCOUNTER 2021-08-28 01:19 | Outpatient (CLI) | payer MEDICAID, SELFPAY ==
[2021-08-28 08:47] LABS: Abs Immature Grans 0.02 10^3/uL (0.0-0.06); Absolute Basophil Count 0.04 10^3/uL (0.0-0.2); Absolute Eosinophil Count 0.06 10^3/uL (0.0-0.7); Absolute Lymphocyte Count 1.56 10^3/uL (1.2-3.4); Absolute Monocyte Count 0.33 10^3/uL (0.1-0.8); Absolute Neutrophil Count 1.98 10^3/uL (1.2-6.7); Eosinophils % 1.5; HCT 36.3 % (36.0-46.0); HGB 12.3 g/dL (11.2-15.7); Immature Grans % 0.5; Lymphocytes % 39.1; MCH 40.9 pg (27.0-33.0); MCHC 33.9 % (32.0-36.0); MCV 121 fL (80-95); MPV 9.8 fL (8.0-11.0); Monocytes % 8.3; Neutrophils % 49.6; Platelet Count 608 10^3/uL (130-400); RBC 3.01 10^6/uL (3.93-5.22); RDW 13.5 % (11.7-14.6); RDW-SD 60.3 fL; WBC 3.99 10^3/uL (4.4-10.8)
[2021-08-28 09:05] LABS: ALT 132 U/L (14-59); AST 60 U/L (15-37); Albumin 3.8 g/dL (3.4-5.0); Alkaline Phosphatase 146 U/L (46-116); Anion Gap 9.1 mmol/L (3-11); BUN 22 mg/dL (7-18); Bilirubin, Total 0.5 mg/dL (0.2-1.0); CO2 26.9 mmol/L (21.0-32.0); CREATININE 0.9 mg/dL (0.55-1.02); Calcium 8.8 mg/dL (8.5-10.1); Chloride 102 mmol/L (98-107); Glucose 117 mg/dL (74-106); Sodium 138 mmol/L (136-145); Total Protein 7.6 g/dL (6.4-8.2)
[2021-08-28 09:27] LABS: Macrocytosis 2+; Spherocytes 3+
== END 2021-08-28 01:20 | disposition home or self-care (01) ==
LOC: LBO 01:19
PROVIDERS: PCP Nurse Practitioner Family; Visit Provider Internal Medicine Hematology & Oncology
DX: D47.3 Essential (hemorrhagic) thrombocythemia (principal)
CPT/HCPCS: 36415; 80053; 85025

== ENCOUNTER 2021-10-31 07:55 | Outpatient (CLI) | payer MEDICAID, SELFPAY ==
[2021-10-31 08:11] LABS: Abs Immature Grans 0.01 10^3/uL (0.0-0.06); Absolute Basophil Count 0.03 10^3/uL (0.0-0.2); Absolute Eosinophil Count 0.06 10^3/uL (0.0-0.7); Absolute Monocyte Count 0.31 10^3/uL (0.1-0.8); Absolute Neutrophil Count 1.85 10^3/uL (1.2-6.7); Basophils % 0.8; Eosinophils % 1.6; HCT 36.9 % (36.0-46.0); Immature Grans % 0.3; Lymphocytes % 39.9; MCH 41.7 pg (27.0-33.0); MCHC 35.2 % (32.0-36.0); MCV 118 fL (80-95); MPV 9.5 fL (8.0-11.0); Monocytes % 8.2; Neutrophils % 49.2; Platelet Count 535 10^3/uL (130-400); RBC 3.12 10^6/uL (3.93-5.22); RDW 13.3 % (11.7-14.6); RDW-SD 58.3 fL; WBC 3.76 10^3/uL (4.4-10.8)
[2021-10-31 08:37] LABS: ALT 65 U/L (14-59); AST 42 U/L (15-37); Alkaline Phosphatase 129 U/L (46-116); BUN 17 mg/dL (7-18); Bilirubin, Total 0.4 mg/dL (0.2-1.0); CREATININE 0.8 mg/dL (0.55-1.02); Calcium 8.7 mg/dL (8.5-10.1); Chloride 104 mmol/L (98-107); Ferritin 178 ng/mL (8-252); Glucose 108 mg/dL (74-106); Potassium 3.9 mmol/L (3.5-5.1); Sodium 140 mmol/L (136-145); Total Protein 7.9 g/dL (6.4-8.2)
[2021-10-31 08:48] LABS: Iron 95 ug/dL (50-170); Total Iron Binding Capacity 325 ug/dL (250-450); Transferrin Sat 29 % (15-50)
== END 2021-10-31 07:56 | disposition home or self-care (01) ==
PROVIDERS: PCP Nurse Practitioner Family; Visit Provider Internal Medicine Hematology & Oncology
DX: D75.839 Thrombocytosis, unspecified (principal)
CPT/HCPCS: 36415; 80053; 82728; 83540; 83550; 85025

== ENCOUNTER → 2021-12-11 02:27 | Outpatient (CLI) | payer MEDICAID, SELFPAY ==
--- NOTE | 2021-12-11 13:57 | DI.RAD_ITS ---
Exam(s) XR THORACIC SPINE COMPLETE EXAM: XR THORACIC SPINE COMPLETE CLINICAL HISTORY: midline thoracic back pain x 2mo,M54.6 TECHNIQUE: COMPARISON: No exams were available for comparison FINDINGS: Four views were obtained. The intervertebral disc spaces show mild loss of height throughout the tho racic region. No fracture or destructive lesion. Mild endplate hypertrophic changes noted throughou t. IMPRESSION: mild degenerative changes of thoracic spine. RADIATION DOSE DELIVERED: Total DLP
== END ==
PROVIDERS: PCP Nurse Practitioner Family; Visit Provider Nurse Practitioner Family
DX: M51.34 Other intervertebral disc degeneration, thoracic region (principal)
CPT/HCPCS: 72072

== ENCOUNTER 2022-01-22 12:48 | Outpatient (CLI) | payer MEDICAID, SELFPAY ==
[2022-01-22 12:48] LABS: Absolute Basophil Count 0.04 10^3/uL (0.0-0.2); Absolute Eosinophil Count 0.06 10^3/uL (0.0-0.7); Absolute Lymphocyte Count 1.48 10^3/uL (1.2-3.4); Absolute Monocyte Count 0.36 10^3/uL (0.1-0.8); Eosinophils % 1.4; HCT 36.3 % (36.0-46.0); HGB 12.8 g/dL (11.2-15.7); Lymphocytes % 35.7; MCH 41.2 pg (27.0-33.0); MCHC 35.3 % (32.0-36.0); MCV 117 fL (80-95); MPV 9.7 fL (8.0-11.0); Monocytes % 8.7; Neutrophils % 53.2; Platelet Count 530 10^3/uL (130-400); RBC 3.11 10^6/uL (3.93-5.22); RDW 13.2 % (11.7-14.6); RDW-SD 56.7 fL; WBC 4.14 10^3/uL (4.4-10.8)
[2022-01-22 13:20] LABS: ALT 58 U/L (14-59); AST 34 U/L (15-37); Albumin 4.1 g/dL (3.4-5.0); Alkaline Phosphatase 129 U/L (46-116); Anion Gap 8.1 mmol/L (3-11); BUN 20 mg/dL (7-18); Bilirubin, Total 0.3 mg/dL (0.2-1.0); CO2 27.9 mmol/L (21.0-32.0); CREATININE 0.7 mg/dL (0.55-1.02); Calcium 8.9 mg/dL (8.5-10.1); Chloride 103 mmol/L (98-107); Estimated GFR 96.52 (mL/min/1.73m2); Ferritin 141 ng/mL (8-252); Glucose 97 mg/dL (74-106); Potassium 3.7 mmol/L (3.5-5.1); Sodium 139 mmol/L (136-145); Total Protein 8.1 g/dL (6.4-8.2)
[2022-01-22 13:26] LABS: Iron 99 ug/dL (50-170); Total Iron Binding Capacity 339 ug/dL (250-450); Transferrin Sat 29 % (15-50)
== END 2022-01-22 12:49 | disposition home or self-care (01) ==
LOC: LBO 12:51
PROVIDERS: PCP Nurse Practitioner Family; Visit Provider Internal Medicine Hematology & Oncology
DX: D75.839 Thrombocytosis, unspecified (principal)
CPT/HCPCS: 36415; 80053; 82728; 83540; 83550; 85025

== ENCOUNTER 2022-07-08 02:29 | Outpatient (CLI) | payer MEDICAID, SELFPAY ==
--- NOTE | 2022-07-08 06:30 | DI.MRI_ITS ---
Exam(s) MR UPPER JOINT LT WO EXAM: MR UPPER JOINT LT WO CLINICAL HISTORY: Limited ROM, tendinopathy,m67.912 TECHNIQUE: Multiplanar multisequence MRI of the shoulder was performed. COMPARISON: CR LEFT HUMERUS from 12/04/2017 MR MR upper joint LT wo from 01/14/2018 CR XR THORACIC SPINE COMPLETE from 12/11/2021 FINDINGS: MARROW:There is no evidence of fracture, Hill-Sachs deformity, nor ominous osseous lesions. ROTATOR CUFF MECHANISM: AC JOINT/ACROMIUM: Mild-moderate degenerative changes in the AC joint.. There is no evidence of os acromiale. Supraspinatus: There is an oval focus of well-defined signal dropout measuring 9 x 4 x 3mm, intimatel y associated with the anterior aspect of the supraspinatus tendon just above the greater tuberosity a nd consistent with with calcific tendinitis signal at this level, consistent with calcific tendinitis plus some tendinitis signal also noted in supraspinatus. Infraspinatus: Intact. No evidence of tear nor muscle atrophy. Teres Minor: Intact. No evidence of tear nor muscle atrophy. Subscapularis/anterior cuff: Intact. No abnormal signal at the level of the multipennate insertional fibers. No significant tear nor atrophy. BICEPS TENDON: Normally position in the intertubercular groove. No evidence of tear. No tenosynovitis. LABRUM: No labral tear identified. No evidence of paralabral cyst. GLENOHUMERAL JOINT: No joint effusion nor obvious loose intra-articular bodies. No chondral defects. No osteophytes. Small degenerative subarticular cysts seen in the posterolateral aspect of the tu ral head. QUADRILATERAL SPACE: No evidence of mass in the region of the axillary nerve and dorsal circumflex hu meral vessels. Visualized triceps muscle at this level appears unremarkable. IMPRESSION: 1. Compared to the prior MRI scan of December 2017 there is significantly less signal abnormality in the humeral head. 2. There is a 9 x4 xmm calcific density in intimately associated with the anterior subscapularis tend on just above the greater tuberosity insertion and there is also signal abnormality in tendon at this level. These findings are consistent with calcific rotator cuff-supraspinatus tendonitis. Similar findings are not seen in the infraspinatus and subscapularis. 3. No obvious labral tears nor evidence of paralabral cyst. Biceps tendon is not torn or displaced. DATA REPOSITORY:
== END 2022-07-08 02:49 ==
LOC: DI 02:29
PROVIDERS: PCP Nurse Practitioner Family; Visit Provider Nurse Practitioner Family
DX: M67.812 Other specified disorders of synovium, left shoulder; M67.814 Other specified disorders of tendon, left shoulder; M25.612 Stiffness of left shoulder, not elsewhere classified
CPT/HCPCS: 73221

== ENCOUNTER 2022-07-17 08:59 | Outpatient (CLI) | payer MEDICAID, SELFPAY ==
[2022-07-17 09:09] LABS: Abs Immature Grans 0.01 10^3/uL (0.0-0.06); Absolute Basophil Count 0.03 10^3/uL (0.0-0.2); Absolute Eosinophil Count 0.04 10^3/uL (0.0-0.7); Absolute Lymphocyte Count 1.45 10^3/uL (1.2-3.4); Absolute Monocyte Count 0.41 10^3/uL (0.1-0.8); Absolute Neutrophil Count 2.02 10^3/uL (1.2-6.7); Basophils % 0.8; HGB 13.2 g/dL (11.2-15.7); Immature Grans % 0.3; Lymphocytes % 36.6; MCH 39.9 pg (27.0-33.0); MCHC 34.7 % (32.0-36.0); MCV 115 fL (80-95); MPV 9.5 fL (8.0-11.0); Monocytes % 10.4; Neutrophils % 50.9; RBC 3.31 10^6/uL (3.93-5.22); RDW 13.8 % (11.7-14.6); RDW-SD 59.3 fL; WBC 3.96 10^3/uL (4.4-10.8)
[2022-07-17 09:24] LABS: ALT 53 U/L (14-59); AST 31 U/L (15-37); Albumin 4.1 g/dL (3.4-5.0); Alkaline Phosphatase 125 U/L (46-116); Anion Gap 8.1 mmol/L (3-11); BUN 22 mg/dL (7-18); Bilirubin, Total 0.3 mg/dL (0.2-1.0); CO2 25.9 mmol/L (21.0-32.0); CREATININE 0.9 mg/dL (0.55-1.02); Calcium 9.2 mg/dL (8.5-10.1); Chloride 104 mmol/L (98-107); Estimated GFR 71.39 (mL/min/1.73m2); Glucose 107 mg/dL (74-106); Sodium 138 mmol/L (136-145); Total Protein 8.1 g/dL (6.4-8.2)
[2022-07-17 09:27] LABS: Diff Comment Diff Reviewed; Platelet Count 713 10^3/uL (130-400)
[2022-07-17 09:28] LABS: Macrocytosis 2+
[2022-07-17 09:35] LABS: Calculated LDL 124 mg/dL (<100); Cholesterol 222 mg/dL (<200); HDL Cholesterol 54 mg/dL (40-60); Triglyceride 223 mg/dL (<150)
== END 2022-07-17 09:00 | disposition home or self-care (01) ==
LOC: LBO 09:00
PROVIDERS: PCP Nurse Practitioner Family; Visit Provider Internal Medicine Hematology & Oncology
DX: D75.839 Thrombocytosis, unspecified (principal)
CPT/HCPCS: 36415; 80053; 80061; 84443; 85025

== ENCOUNTER 2022-09-12 02:23 | Outpatient (CLI) | payer MEDICAID, SELFPAY ==
--- NOTE | 2022-09-12 08:45 | DI.DEXA_ITS ---
Exam(s) XR DEXA BONE DENSITY W/WO DEMETRIS EXAM: XR DEXA BONE DENSITY W/WO DEMETRIS CLINICAL HISTORY: osteopenia noted in 2008,screening for osteoporosis in postmenopausal woman TECHNIQUE: COMPARISON: DX DEXA BONE DENSITY WITH DEMETRIS from 04/05/2009 FINDINGS: Lateral Spine Image: Unremarkable. No compression deformities identified. Left hip: Total T-Score: -2.2. This compares to -2.1 on the prior examination. Total Z-Score: -1.0 T- and Z-scores: Findings are consistent with osteopenia. There is no evidence of osteoporosis. Lumbar Spine: Total T-Score: -2.2. This compares to -2.1 on the prior examination. Total Z-Score: -0.4 T- and Z-scores: Findings are consistent with osteopenia. There is osteoporosis in the L1 and L2 soto tebral bodies. IMPRESSION: There is osteoporosis seen in the L1 and L2 vertebral bodies.
--- NOTE | 2022-09-12 08:45 | DI.MAMMO_ITS ---
Exam(s) MAMMO SCREENING EXAM: MAMMO SCREENING CLINICAL HISTORY: screening,z12.39 TECHNIQUE: Bilateral full field digital CC and MLO mammographic images were obtained with 3D tomosyn thesis and utilizing computer aided detection (CAD). COMPARISON: Available for comparison. FINDINGS: Masses/Architectural Distortion: None seen. Microcalcifications: No suspicious pleomorphic-type are seen. Skin Thickening/Nipple Retraction: None. IMPRESSION: 1. No significant interval change with no specific features of malignancy noted. 2. Unless there is more urgent need, screening mammography is recommended, as per [employer] guidelines. BI-RADS Category 1 - Negative Breast Density - Category A - Almost entirely fatty Breast density category C or D implies that the patient has dense breast tissue. Dense breast tissue is very common and is not abnormal but dense breast tissue can make it harder to find cancer on a ma mmogram. Also, dense breast tissue may increase their breast cancer risk. This information about the result of the mammogram report was provided to the patient to raise their awareness. Use this report when you speak with the patient about their risks for breast cancer, which includes their family hist ory. At that time, you may recommend for more screening tests (Ultrasound or MRI) as they might be us eful based on their risk. A negative radiographic report should not delay biopsy if a dominant or clinically suspicious mass is present. Up to ten percent of cancers are not identified on mammography. A negative report may reinforce clinical impression. Adenosis and dense breasts may obscure an underlying neoplasm. False positive reports average 6 to 10%. Patient will receive a letter notifying them of these results.
== END 2022-09-12 02:43 ==
LOC: DI 02:23
PROVIDERS: PCP Nurse Practitioner Family; Visit Provider Nurse Practitioner Family
DX: Z12.31 Encounter for screening mammogram for malignant neoplasm of breast (principal); Z78.0 Asymptomatic menopausal state; M81.0 Age-related osteoporosis without current pathological fracture
CPT/HCPCS: 77063; 77067; 77080

== ENCOUNTER 2022-09-23 03:31 | Outpatient (CLI) | payer MEDICAID, SELFPAY ==
[2022-09-23 12:02] LABS: Abs Immature Grans 0.01 10^3/uL (0.0-0.06); Absolute Basophil Count 0.04 10^3/uL (0.0-0.2); Absolute Eosinophil Count 0.05 10^3/uL (0.0-0.7); Absolute Lymphocyte Count 1.32 10^3/uL (1.2-3.4); Absolute Monocyte Count 0.26 10^3/uL (0.1-0.8); Absolute Neutrophil Count 2.18 10^3/uL (1.2-6.7); Eosinophils % 1.3; Immature Grans % 0.3; Lymphocytes % 34.2; MCH 40.6 pg (27.0-33.0); MCHC 35.1 % (32.0-36.0); MCV 116 fL (80-95); MPV 10.2 fL (8.0-11.0); Monocytes % 6.7; Neutrophils % 56.5; RDW 13.8 % (11.7-14.6); RDW-SD 58.7 fL; WBC 3.86 10^3/uL (4.4-10.8)
[2022-09-23 12:24] LABS: Macrocytosis 2+
[2022-09-23 12:25] LABS: Platelet Count 629 10^3/uL (130-400)
[2022-09-23 12:26] LABS: Diff Comment Diff Reviewed
[2022-09-23 12:29] LABS: ALT 62 U/L (14-59); AST 40 U/L (15-37); Albumin 4.1 g/dL (3.4-5.0); Alkaline Phosphatase 110 U/L (46-116); Anion Gap 9.3 mmol/L (3-11); BUN 17 mg/dL (7-18); Bilirubin, Total 0.3 mg/dL (0.2-1.0); CO2 26.7 mmol/L (21.0-32.0); CREATININE 0.8 mg/dL (0.55-1.02); Calcium 8.9 mg/dL (8.5-10.1); Chloride 104 mmol/L (98-107); Estimated GFR 82.23 (mL/min/1.73m2); Glucose 108 mg/dL (74-106); Potassium 3.7 mmol/L (3.5-5.1); Sodium 140 mmol/L (136-145)
== END 2022-09-23 03:32 | disposition home or self-care (01) ==
LOC: LBO 03:32
PROVIDERS: PCP Nurse Practitioner Family; Visit Provider Internal Medicine Hematology & Oncology
DX: D47.3 Essential (hemorrhagic) thrombocythemia (principal)
CPT/HCPCS: 36415; 80053; 85025

== ENCOUNTER 2022-10-23 02:41 | Outpatient (CLI) | payer MEDICARE, SELFPAY ==
[2022-10-23 08:56] LABS: Abs Immature Grans 0.01 10^3/uL (0.0-0.06); Absolute Basophil Count 0.03 10^3/uL (0.0-0.2); Absolute Eosinophil Count 0.04 10^3/uL (0.0-0.7); Absolute Lymphocyte Count 1.18 10^3/uL (1.2-3.4); Absolute Monocyte Count 0.26 10^3/uL (0.1-0.8); Basophils % 0.9; Eosinophils % 1.2; HCT 35.3 % (36.0-46.0); HGB 12.4 g/dL (11.2-15.7); Immature Grans % 0.3; Lymphocytes % 34.5; MCH 40.1 pg (27.0-33.0); MCHC 35.1 % (32.0-36.0); MCV 114 fL (80-95); MPV 9.5 fL (8.0-11.0); Monocytes % 7.6; Neutrophils % 55.5; Platelet Count 514 10^3/uL (130-400); RBC 3.09 10^6/uL (3.93-5.22); RDW 14.1 % (11.7-14.6); RDW-SD 60.3 fL; WBC 3.42 10^3/uL (4.4-10.8)
[2022-10-23 09:11] LABS: ALT 46 U/L (14-59); AST 26 U/L (15-37); Albumin 3.9 g/dL (3.4-5.0); Alkaline Phosphatase 110 U/L (46-116); Anion Gap 11.5 mmol/L (3-11); BUN 21 mg/dL (7-18); Bilirubin, Total 0.4 mg/dL (0.2-1.0); CO2 24.5 mmol/L (21.0-32.0); CREATININE 0.9 mg/dL (0.55-1.02); Calcium 8.8 mg/dL (8.5-10.1); Chloride 102 mmol/L (98-107); Estimated GFR 71.39 (mL/min/1.73m2); Glucose 114 mg/dL (74-106); Sodium 138 mmol/L (136-145); Total Protein 7.7 g/dL (6.4-8.2)
[2022-10-23 10:55] LABS: Diff Comment RBC Morph Reviewed; Macrocytosis 2+
== END 2022-10-23 02:42 | disposition home or self-care (01) ==
LOC: LBO 02:41
PROVIDERS: PCP Nurse Practitioner Family; Visit Provider Internal Medicine Hematology & Oncology
DX: D47.3 Essential (hemorrhagic) thrombocythemia (principal)
CPT/HCPCS: 36415; 80053; 85025

== ENCOUNTER 2022-12-31 02:47 | Outpatient (CLI) | payer MEDICARE, SELFPAY ==
[2022-12-31 08:04] LABS: Abs Immature Grans 0.01 10^3/uL (0.0-0.06); Absolute Basophil Count 0.03 10^3/uL (0.0-0.2); Absolute Eosinophil Count 0.03 10^3/uL (0.0-0.7); Absolute Lymphocyte Count 1.27 10^3/uL (1.2-3.4); Absolute Monocyte Count 0.19 10^3/uL (0.1-0.8); HCT 33.5 % (36.0-46.0); HGB 11.8 g/dL (11.2-15.7); Immature Grans % 0.3; Lymphocytes % 44.4; MCH 41.7 pg (27.0-33.0); MCHC 35.2 % (32.0-36.0); MCV 118 fL (80-95); MPV 9.6 fL (8.0-11.0); Monocytes % 6.6; Neutrophils % 46.7; Platelet Count 560 10^3/uL (130-400); RBC 2.83 10^6/uL (3.93-5.22); RDW-SD 65.5 fL; WBC 2.86 10^3/uL (4.4-10.8)
[2022-12-31 08:08] LABS: Absolute Neutrophil Count 1.34 10^3/uL (1.2-6.7)
[2022-12-31 08:49] LABS: ALT 48 U/L (14-59); AST 27 U/L (15-37); Albumin 3.6 g/dL (3.4-5.0); Alkaline Phosphatase 116 U/L (46-116); Anion Gap 12.4 mmol/L (3-11); BUN 19 mg/dL (7-18); Bilirubin, Total 0.4 mg/dL (0.2-1.0); CO2 24.6 mmol/L (21.0-32.0); Calcium 9.1 mg/dL (8.5-10.1); Chloride 104 mmol/L (98-107); Estimated GFR 62.52 (mL/min/1.73m2); Glucose 122 mg/dL (74-106); Potassium 3.7 mmol/L (3.5-5.1); Sodium 141 mmol/L (136-145); Total Protein 7.6 g/dL (6.4-8.2)
== END 2022-12-31 02:48 | disposition home or self-care (01) ==
LOC: LBO 02:48
PROVIDERS: PCP Nurse Practitioner Family; Visit Provider Internal Medicine Hematology & Oncology
DX: D47.3 Essential (hemorrhagic) thrombocythemia (principal)
CPT/HCPCS: 36415; 80053; 85025

== ENCOUNTER 2023-02-10 07:38 | Emergency (ER) | payer MEDICARE, SELFPAY ==
[2023-02-10 07:43] VITALS: BP 150/79; PULSE 114; RESP 18; TEMP 36.7; O2SAT 97
--- NOTE | 2023-02-10 08:00 | DI.US_ITS ---
Exam(s) US LOWER EXTREMITY VENOUS LT EXAM: US LOWER EXTREMITY VENOUS LT CLINICAL HISTORY: pain TECHNIQUE: Grayscale, color, and doppler imaging of the deep venous system of the left lower extremi ty was performed. COMPARISON: US US LOWER EXTREMITY VENOUS LT from 02/13/2021 FINDINGS: There is no evidence of intraluminal thrombus and there is normal compression and augmentation demons trated within the common femoral vein, femoral vein, and popliteal vein. In the ipsilateral calf the interrogated veins also exhibit normal compression/ augmentation properti es. The ipsilateral saphenofemoral junction is patent. IMPRESSION: 1. No evidence of DVT in the left lower extremity. DATA REPOSITORY:
[2023-02-10 08:03] VITALS: RESP 18
--- NOTE | 2023-02-10 08:30 | RT.EKG_ITS ---
APPROVED REPORT Exam: Resting ECG Reason for Exam: tavhycardia Patient Location: E HR:87 bpm ECG Measurements Heart Rate 87 AXIS MO 162 P 49 QRSd 96 QRS -13 QT 365 T 54 QTc 440 Conclusion Sinus rhythm...normal P axis, V-rate 60- 99
--- NOTE | 2023-02-10 08:32 | ED.GENADUL_ITS ---
Discharge Plan Disposition Patient Disposition: Home Discharge Details Clinical Impression: Acute pain of left lower extremity Primary Care Provider: Luz Romero ED Provider: Derian Dias Home Meds and New Rx's Prescriptions: Continued hydroxyurea 500 mg capsule 1,500 - 2,000 mg PO DAILY Patient Comments: 2000mg MWF, 1500mg all other days metoprolol succinate 25 mg tablet extended release 24 hr 25 mg PO DAILY Qty: 90 4RF aspirin 325 MG tablet 325 mg PO DAILY baclofen 10 mg tablet 10 mg PO TID PRN (Reason: muscle spasm) Qty: 90 0RF Rx Instructions: for back spasm verapamil 360 mg capsule,ext rel. pellets 24 hr 360 mg PO DAILY Qty: 90 3RF lorazepam 0.5 mg tablet 0.5 mg PO DAILY PRN (Reason: anxiety) Qty: 20 0RF sumatriptan succinate 100 mg tablet 100 mg PO ONCE MDD 200mg PRN (Reason: mod-severe migraine) Qty: 60 5RF Rx Instructions: Take 1 tablet at first onset of headache, may take another tablet in 2 hours if migraine persists Discharge Instructions Instructions: Leg Pain (ED) Additional Instructions: Please take ibuprofen over the counter. Take 600mg by mouth every 6 hours as needed for pain. Please contact your primary care physician to arrange follow-up. Return to the ER immediately for any worsening or new concerning symptoms. Referrals: Luz Romero NP [Primary Care Provider] - Discharge Data Discharge Date/Time-TO BE ENTERED AT DEPARTURE: 02/10/23 11:03 Medical Decision Making 836??67-year-old female essential thrombocytosis here with atraumatic 2 to 3 days of right posterior lower extremity pain. Patient has dopplerable pulse left lower extremity. She is tender posterior lower leg. Concern for DVT. Plan to obtain ultrasound. Patient tachycardic on arrival. She does note she has had some palpitations recently and thought it was related naproxen. She has stopped taking this. I will check electrolytes and TSH. Patient does note she has been tachycardic in the past. --EKG was reviewed and interpreted by me: Please report, normal sinus rhythm 87 bpm, normal axis, nondiagnostic. -- Labs reviewed: TSH is elevated but free T4 is normal. Platelets are elevated at 529 which is consistent with disease. Ultrasound of the right lower extremity was interpreted by radiology: There is no evidence of intraluminal thrombus and there is normal compression and augmentation demonstrated within the common femoral vein, femoral vein, and popliteal vein. In the ipsilateral calf the interrogated veins also exhibit normal compression/ augmentation properties. The ipsilateral saphenofemoral junction is patent. Unclear etiology for symptoms at this point. Suspect musculoskeletal. All results were discussed with the patient. I offered crutches and she decl ined. We offered ibuprofen and she declined noting she will take this at home. Usual customary discharge instructions were reviewed. Understands importance of timely follow-up and that if symptoms persist additional diagnostic testing may be necessary. She was encouraged to return immediately for any worsening or new concerning symptoms. Lab Data Lab results reviewed: Yes I reviewed the patient's lab results. Labs: Laboratory Tests Range/Units 02/10/23 08:42 WBC (4.4-10.8) 10^3/uL 2.64 L RBC (3.93-5.22) 10^6/uL 2.88 L Hgb (11.2-15.7) g/dL 12.3 Hct (36.0-46.0) % 34.7 L MCV (80-95) fL 121 H MCH (27.0-33.0) pg 42.7 H MCHC (32.0-36.0) % 35.4 RDW (11.7-14.6) % 13.5 Plt Count (130-400) 10^3/uL 529 H MPV (8.0-11.0) fL 9.9 Immature Gran % 0.0 Neutrophils % 54.1 Lymphocytes % 36.4 Monocytes % 7.2 Eosinophils % 1.5 Basophils % 0.8 Nucleated RBC % (0.0-0.3) % 0.0 Absolute Neutrophils (1.2-6.7) 10^3/uL 1.43 Absolute Lymphocytes (1.2-3.4) 10^3/uL 0.96 L Absolute Monocytes (0.1-0.8) 10^3/uL 0.19 Absolute Eosinophils (0.0-0.7) 10^3/uL 0.04 Absolute Basophils (0.0-0.2) 10^3/uL 0.02 RBC Morphology See Below Macrocytosis 2+ Sodium (136-145) mmol/L 140 Potassium (3.5-5.1) mmol/L 4.0 Chloride (98-107) mmol/L 105 Carbon Dioxide (21.0-32.0) mmol/L 23.3 Anion Gap (3-11) mmol/L 11.7 H BUN (7-18) mg/dL 24 H Creatinine (0.55-1.02) mg/dL 0.9 Est GFR (CKD-EPI 2020) (mL/min/1.73m2) 70.95 Glucose (74-106) mg/dL 108 H Calcium (8.5-10.1) mg/dL 9.5 Magnesium (1.8-2.4) mg/dL 2.2 Total Bilirubin (0.2-1.0) mg/dL 0.4 AST (15-37) U/L 29 ALT (14-59) U/L 46 Alkaline Phosphatase (46-116) U/L 121 H Total Protein (6.4-8.2) g/dL 8.4 H Albumin (3.4-5.0) g/dL 4.2 TSH (0.36-3.74) uIU/mL 4.76 H Free T4 (0.76-1.46) ng/dL 0.83 HPI General Mode of arrival: ambulatory . Date/Time Provider Initiated Documentation: 02/10/23 07:50 . Limitations to Documentation: no limitations . Information obtained by: patient . HPI Narrative: 67-year-old female with history of hypertension, hyperlipidemia, polycythemia vera, essential thrombocytosis, here with chief complaint of left lower leg pain. Patient notes pain started 2 days ago and has persisted. Pain localized to posterior left leg and feels like a shooting pain. Pain is worse with amb ulation. No known trauma. She does have a history of sciatic pain but this feels different. Symptoms as a tingling sensation in her foot. No associated rash. No fever. No history of blood clots. No long distance travel or immobility. No recent surgery. Patient has no chest pain or shortness of breath. She does note her heart rate is sometimes elevated in the past. Related Data Home Medications Medication Instructions Recorded Confirmed aspirin 325 mg tablet 325 mg PO DAILY 09/18/12 02/10/23 baclofen 10 mg tablet 10 mg PO TID PRN muscle spasm #90 01/24/21 02/10/23 tab-caps metoprolol succinate 25 mg 25 mg PO DAILY #90 tabs 12/10/21 02/10/23 tablet,extended release 24 hr verapamil 360 mg 24 hr 360 mg PO DAILY #90 tab-caps 05/06/22 02/10/23 capsule,extended release lorazepam 0.5 mg tablet 0.5 mg PO DAILY PRN anxiety #20 11/11/22 02/10/23 tab-caps hydroxyurea 500 mg capsule 1,500 - 2,000 mg PO DAILY 11/28/22 02/10/23 sumatriptan succinate 100 mg tablet 100 mg PO ONCE PRN mod-severe 01/14/23 02/10/23 migraine #60 tabs Previous Rx's Medication Instructions Recorded baclofen 10 mg tablet 10 mg PO TID PRN muscle spasm #90 01/24/21 tab-caps metoprolol succinate 25 mg 25 mg PO DAILY #90 tabs 12/10/21 tablet,extended release 24 hr verapamil 360 mg 24 hr 360 mg PO DAILY #90 tab-caps 05/06/22 capsule,extended release lorazepam 0.5 mg tablet 0.5 mg PO DAILY PRN anxiety #20 11/11/22 tab-caps sumatriptan succinate 100 mg tablet 100 mg PO ONCE PRN mod-severe 01/14/23 migraine #60 tabs Allergies Allergy/AdvReac Type Severity Reaction Status Date / Time citalopram Allergy Unverified 02/10/23 07:53 hydrochlorothiazide Allergy Verified 02/10/23 07:46 carbamazepine AdvReac Severe nausea and Verified 02/10/23 07:46 bloating oxycodone AdvReac Intermediate vomiting Verified 02/10/23 07:46 lisinopril AdvReac diarrhea Verified 02/10/23 07:46 topiramate [From Topamax] AdvReac tachy Verified 02/10/23 07:46 Adhesive Tab Allergy Intermediate skin Uncoded 02/10/23 07:46 blistered sertraline Allergy Uncoded 02/10/23 07:53 General Stated Complaint: Vascular VALERIA: 3 Review of Systems All systems reviewed & are unremarkable except as noted in HPI and below Constitutional Constitutional: Denies fever(s) PFSH All Active Problems (Updated 02/10/23 @ 10:57 by Derian Dias MD) Acute pain of left lower extremity (Acute) Polycythemia vera (Chronic) Essential thrombocytosis (Chronic) Followed by [facility] Hem/Onc LIZ (obstructive sleep apnea) (Chronic) PSG 2016. CPAP Essential hypertension (Chronic) Hyperlipidemia (Chronic) Osteoporosis (Chronic) Declines medication Nonalcoholic steatohepatitis (DURAND) (Chronic) Calcific tendonitis of left shoulder (Chronic) Migraine headache without aura (Chronic) Major depressive disorder, recurrent (Chronic) Generalized anxiety disorder (Chronic) Celiac disease (Chronic) Atrophic vaginitis (Chronic) Medical History (Updated 02/10/23 @ 10:57 by Derian Dias MD) Facial basal cell cancer Surgical History History of esophagogastroduodenoscopy (EGD) (04/24/12) S/P colonoscopy (02/01/11) S/P ORIF (open reduction internal fixation) fracture S/P cholecystectomy (06/14/15) Family History Mother Heart disease Chronic kidney disease Respiratory failure Father Type 2 diabetes mellitus Sister Chronic kidney disease Sister No problems noted. Sister Breast cancer 50s Sister Ovarian cancer Daughter No problems noted. Daughter No problems noted. Maternal Grandfather No problems noted. Maternal Grandmother No problems noted. Paternal Grandfather No problems noted. Paternal Grandmother , 37 Leukemia Social History (Updated 06/12/22 @ 17:19 by Karishma Amaya) Smoking/Tobacco Use Status: Former Tobacco Use tobacco type: cigarettes Tobacco: How many years used: 25 Second Hand Exposure: Yes Smoking risk assessment performed?: Yes Alcohol Intake: former Drug use: Never Substance use type: does not use Caregiver/Support person: No Household members: spouse Housing: house Communication Needs: None Pets and animals: No Sexually active: No Do you think of yourself as: straight/heterosexual Current gender identity: female What is your relationship status?: How often do you talk on the phone with friends or family?: three or more times per week How often do you get together with friends or relatives?: decline to answer How often do you attend nondenominational or anabaptist services?: decline to answer Do you belong to any clubs or organized social groups?: no Panel score (0-1 are the most socially isolated patients): 2 What type of physical activity do you participate in: walking Duration: 30-45 minutes/day Frequency: 5-6 times per week Tigist/Jehovah'S Witness: No preference Special tigist needs: No Seatbelt use: always 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 Do you feel safe at home: Yes Do you feel safe in your relationship?: Yes Female Reproductive History Menstrual Menopause type: natural History History 2 Para 2 Hx # Term Pregnancies Multiple births Hx # Pregnancies Ectopic pregnancies AB induced Hx Number of Living Children 2 AB spontaneous Exam Const General: cooperative and no acute distress HENMT Mouth: moist mucous membranes Eyes Conjunctivae: normal conjunctivae Sclera: normal sclerae Neck Neck: trachea midline and supple Resp Auscultation: clear to auscultation bilaterally, no rales, no rhonchi and no wheezes Cardio Rate: regular rate Rhythm: regular rhythm Other: 1+ dorsalis pedis right,;trace palpable dorsalis pedis left, clearly dopplerable PT and DP GI Palpation: soft, not firm, no guarding, no masses, not rigid and nontender Skin General skin exam: no rashes or lesions noted Neuro General: patient alert, patient awake, patient oriented x3 and tone normal Extrem General: no edema Left lower extremity: lower leg Details: tenderness and no edema; no erythema, no pitting edema, no ecchymosis and no unusual warmth Psych Appearance: grossly normal Mental Status: mental status grossly normal Speech and Movement: speech and movement normal Course Vital Signs Vital signs: Vital Signs Temperature 36.7 C 02/10/23 07:43 Pulse 114 H 02/10/23 07:43 Respiratory Rate 18 02/10/23 07:43 Blood Pressure 150/79 H 02/10/23 07:43 Pulse Oximetry 97 02/10/23 07:43 Temperature 36.7 C 02/10/23 07:43 Temperature Source Temporal Artery Scan 02/10/23 07:43 Pulse 114 H 02/10/23 07:43 Respiratory Rate 18 02/10/23 08:03 Respiratory Effort Normal, Non-Labored 02/10/23 08:03 Respiratory Depth Normal 02/10/23 08:03 Respiratory Pattern Normal 02/10/23 08:03 Blood Pressure 150/79 H 02/10/23 07:43 Blood Pressure Position Sitting 02/10/23 07:43 Pulse Oximetry 97 02/10/23 07:43 Oxygen Delivery Method Room Air 02/10/23 07:43 Oxygen Flow Rate 0 02/10/23 07:43
[2023-02-10 08:51] LABS: Absolute Basophil Count 0.02 10^3/uL (0.0-0.2); Absolute Eosinophil Count 0.04 10^3/uL (0.0-0.7); Absolute Lymphocyte Count 0.96 10^3/uL (1.2-3.4); Absolute Monocyte Count 0.19 10^3/uL (0.1-0.8); Absolute Neutrophil Count 1.43 10^3/uL (1.2-6.7); Basophils % 0.8; Eosinophils % 1.5; HCT 34.7 % (36.0-46.0); HGB 12.3 g/dL (11.2-15.7); Lymphocytes % 36.4; MCH 42.7 pg (27.0-33.0); MCHC 35.4 % (32.0-36.0); MCV 121 fL (80-95); MPV 9.9 fL (8.0-11.0); Monocytes % 7.2; Neutrophils % 54.1; Platelet Count 529 10^3/uL (130-400); RBC 2.88 10^6/uL (3.93-5.22); RDW 13.5 % (11.7-14.6); RDW-SD 60.4 fL; WBC 2.64 10^3/uL (4.4-10.8)
[2023-02-10 09:17] LABS: ALT 46 U/L (14-59); AST 29 U/L (15-37); Albumin 4.2 g/dL (3.4-5.0); Alkaline Phosphatase 121 U/L (46-116); Anion Gap 11.7 mmol/L (3-11); BUN 24 mg/dL (7-18); Bilirubin, Total 0.4 mg/dL (0.2-1.0); CO2 23.3 mmol/L (21.0-32.0); CREATININE 0.9 mg/dL (0.55-1.02); Calcium 9.5 mg/dL (8.5-10.1); Chloride 105 mmol/L (98-107); Estimated GFR 70.95 (mL/min/1.73m2); Glucose 108 mg/dL (74-106); Magnesium 2.2 mg/dL (1.8-2.4); Sodium 140 mmol/L (136-145); TSH (W/Ref FT4) 4.76 uIU/mL (0.36-3.74); Total Protein 8.4 g/dL (6.4-8.2)
[2023-02-10 09:27] LABS: Diff Comment Diff Reviewed; Macrocytosis 2+
[2023-02-10 09:36] LABS: FREE T4 0.83 ng/dL (0.76-1.46)
== END 2023-02-10 11:03 | disposition home or self-care (01) ==
PROVIDERS: Emergency Provider Student in an Organized Health Care Education/Training Program; PCP Nurse Practitioner Family
DX: M79.662 Pain in left lower leg (principal); R00.0 Tachycardia, unspecified; I10 Essential (primary) hypertension; E78.5 Hyperlipidemia, unspecified; D45 Polycythemia vera; D75.839 Thrombocytosis, unspecified; Z87.891 Personal history of nicotine dependence
CPT/HCPCS: 80053; 93005; 99283; 83735; 84439; 84443; 85025; 93010; 93971

== ENCOUNTER → 2023-02-21 00:57 | Outpatient (CLI) | payer MEDICARE, SELFPAY ==
--- NOTE | 2023-02-21 07:00 | DI.RAD_ITS ---
Exam(s) XR HIP LT COMPLETE AP PELVIS EXAM: XR HIP LT COMPLETE AP PELVIS CLINICAL HISTORY: left leg pain,iliotibial band syndrome, m76.32. TECHNIQUE: 2D digital imaging was performed. Two views. COMPARISON: CR THORACIC SPINE from 02/21/2017 FINDINGS: BONES: No acute fracture is present. No bony destructive lesion is seen. JOINTS: No dislocation present. The hip joint spaces are maintained. Mild acetabular spurring. SI joints show minimal degenerative changes. SOFT TISSUE: Normal. IMPRESSION: Minimal degenerative changes. DATA REPOSITORY: RADIATION DOSE DELIVERED:
--- NOTE | 2023-02-21 07:00 | DI.RAD_ITS ---
Exam(s) XR KNEE LT 3V AP,LAT,SOLO EXAM: XR KNEE LT 3V AP,LAT,SOLO CLINICAL HISTORY: left leg pain,iliotibial band syndrome,m76.32. TECHNIQUE: 2D digital imaging was performed. Three views. COMPARISON: CR LEFT KNEE 3 VIEW COMPLETE from 12/24/2010 FINDINGS: BONES: No acute fracture is present. No bony destructive lesion is seen. JOINTS: The knee is normally aligned. No joint effusion is seen. No significant degenerative changes. SOFT TISSUE: Normal. IMPRESSION: Normal radiographs of the left knee. DATA REPOSITORY: RADIATION DOSE DELIVERED:
== END ==
PROVIDERS: PCP Family Medicine; Visit Provider Family Medicine
DX: M76.32 Iliotibial band syndrome, left leg (principal)
CPT/HCPCS: 73562; 73502

== ENCOUNTER 2023-08-06 04:26 | Outpatient (CLI) | payer OTHER, SELFPAY ==
[2023-08-06 08:55] LABS: ALT 71 U/L (14-59); AST 40 U/L (15-37); Albumin 4.1 g/dL (3.4-5.0); Alkaline Phosphatase 142 U/L (46-116); Anion Gap 9.7 mmol/L (3-11); BUN 23 mg/dL (7-18); Bilirubin, Total 0.4 mg/dL (0.2-1.0); CO2 26.3 mmol/L (21.0-32.0); CREATININE 0.8 mg/dL (0.55-1.02); Calcium 9.2 mg/dL (8.5-10.1); Chloride 105 mmol/L (98-107); Estimated GFR 81.72 (mL/min/1.73m2); Glucose 89 mg/dL (74-106); Potassium 4.6 mmol/L (3.5-5.1); Sodium 141 mmol/L (136-145); Total Protein 7.9 g/dL (6.4-8.2)
[2023-08-06 16:17] LABS: Calculated LDL 165 mg/dL (<100); Cholesterol 253 mg/dL (<200); HDL Cholesterol 58 mg/dL (40-60); TSH (W/Ref FT4) 5.31 uIU/mL (0.36-3.74); Triglyceride 154 mg/dL (<150)
[2023-08-06 17:13] LABS: FREE T4 0.76 ng/dL (0.76-1.46)
== END 2023-08-06 04:27 | disposition home or self-care (01) ==
LOC: LBO 04:26
PROVIDERS: PCP Family Medicine; Visit Provider Family Medicine
DX: Z00.00 Encounter for general adult medical examination without abnormal findings (principal); E03.9 Hypothyroidism, unspecified; Z13.6 Encounter for screening for cardiovascular disorders; E78.5 Hyperlipidemia, unspecified
CPT/HCPCS: 36415; 80053; 80061; 84439; 84443

== ENCOUNTER 2023-08-26 05:45 | Outpatient (CLI) | payer OTHER, SELFPAY ==
[2023-08-26 09:52] LABS: Abs Immature Grans 0.01 10^3/uL (0.0-0.06); Absolute Basophil Count 0.02 10^3/uL (0.0-0.2); Absolute Eosinophil Count 0.03 10^3/uL (0.0-0.7); Absolute Lymphocyte Count 1.08 10^3/uL (1.2-3.4); Absolute Monocyte Count 0.22 10^3/uL (0.1-0.8); Absolute Neutrophil Count 1.43 10^3/uL (1.2-6.7); Basophils % 0.7 %; Eosinophils % 1.1 %; HCT 32.7 % (36.0-46.0); HGB 11.5 g/dL (11.2-15.7); Immature Grans % 0.4 %; Lymphocytes % 38.7 %; MCH 43.9 pg (27.0-33.0); MCHC 35.2 % (32.0-36.0); MCV 125 fL (80-95); MPV 10.2 fL (8.0-11.0); Monocytes % 7.9 %; Neutrophils % 51.2 %; Platelet Count 571 10^3/uL (130-400); RBC 2.62 10^6/uL (3.93-5.22); RDW 12.4 % (11.7-14.6); RDW-SD 56.7 fL; WBC 2.79 10^3/uL (4.4-10.8)
[2023-08-26 10:00] LABS: Diff Comment RBC Morph Reviewed
[2023-08-26 10:05] LABS: Macrocytosis 3+; Polychromasia Present
[2023-08-26 10:06] LABS: ALT 50 U/L (14-59); AST 27 U/L (15-37); Albumin 3.9 g/dL (3.4-5.0); Alkaline Phosphatase 115 U/L (46-116); Anion Gap 9.8 mmol/L (3-11); BUN 22 mg/dL (7-18); Bilirubin, Total 0.3 mg/dL (0.2-1.0); CO2 26.2 mmol/L (21.0-32.0); CREATININE 0.8 mg/dL (0.55-1.02); Calcium 9.1 mg/dL (8.5-10.1); Chloride 105 mmol/L (98-107); Estimated GFR 81.72 (mL/min/1.73m2); Glucose 107 mg/dL (74-106); Potassium 4.1 mmol/L (3.5-5.1); Sodium 141 mmol/L (136-145); Total Protein 7.6 g/dL (6.4-8.2)
== END 2023-08-26 05:46 | disposition home or self-care (01) ==
LOC: LBO 05:45
PROVIDERS: PCP Family Medicine; Visit Provider Internal Medicine Hematology & Oncology
DX: D47.3 Essential (hemorrhagic) thrombocythemia (principal)
CPT/HCPCS: 36415; 80053; 85025

== ENCOUNTER → 2023-09-02 04:38 | Outpatient (CLI) | payer OTHER, SELFPAY ==
--- NOTE | 2023-09-02 11:34 | DI.RAD_ITS ---
Exam(s) XR SACROILIAC JOINTS EXAM: XR SACROILIAC JOINTS CLINICAL HISTORY: left SI joint pain,M53.3,g89.29. TECHNIQUE: 2D digital imaging was performed. COMPARISON: No exams were available for comparison FINDINGS: 3 views Sacroiliac joints appear age appropriate. No evidence of sacroiliitis nor ankylosis of the SI joints . No osseous lesions. Bone density is normal. Partially visualized hips appear unremarkable. Some degenerative changes seen in the facet joints of the lower lumbar spine. IMPRESSION: No evidence of sacroiliitis nor ankylosis of the SI joints. DATA REPOSITORY: RADIATION DOSE DELIVERED:
== END ==
PROVIDERS: PCP Family Medicine; Visit Provider Family Medicine
DX: M53.3 Sacrococcygeal disorders, not elsewhere classified (principal); G89.29 Other chronic pain
CPT/HCPCS: 72202

== ENCOUNTER → 2023-09-25 04:50 | Outpatient (CLI) | payer OTHER, SELFPAY ==
--- NOTE | 2023-09-25 06:30 | DI.MRI_ITS ---
Exam(s) MR PELVIS WO EXAM: MR PELVIS WO CLINICAL HISTORY: Chronic left SI joint pain and buttock mass, chronic lt si joint pain, TECHNIQUE: Multiplanar multisequence MRI of Pelvis was performed COMPARISON: No exams were available for comparison FINDINGS: OSSEOUS: No fractures nor bone contusions evident. No significant osseous lesions in the bones of th e pelvis. JOINTS: Sacroiliac joints appear unremarkable. No evidence of sacroiliitis nor ankylosis. Hips appear unremarkable. No fractures. No avascular necrosis. No hip joint effusions. Minimal de generative changes. SACRAL CANAL: Unremarkable. No evidence of mass. No Tarlov intra sacral cysts. INTRAPELVIC SOFT TISSUES: No significant findings in the urinary bladder. There is a cyst in left ov juancarlos which measures 2.5 x 2.0 cm. No right adnexal findings. No free fluid. There is sigmoid divert iculosis without obvious acute diverticulitis. OTHER: There is a skin marker noted posteriorly slightly to the right of the lower gluteal cleft. Im mediately subjacent to the skin marker is some mild increased signal in the subcutaneous fat but with out a distinct formed fluid collection. The adjacent coccyx appears unremarkable with no abnormal in traosseous signal within the coccyx. IMPRESSION: Immediately subjacent to the skin marker posteriorly there is some mild nonspecific signal increase i n subcutaneous, best seen on STIR imaging but there is no drainable fluid collection nor distinct mas slike density. The adjacent coccyx appears unremarkable. Other findings as above. DATA REPOSITORY:
== END ==
PROVIDERS: PCP Family Medicine; Visit Provider Family Medicine
DX: M53.3 Sacrococcygeal disorders, not elsewhere classified (principal); R22.2 Localized swelling, mass and lump, trunk
CPT/HCPCS: 72195

== ENCOUNTER 2023-11-25 08:47 | Outpatient (CLI) | payer OTHER, SELFPAY ==
[2023-11-25 12:56] LABS: TSH (W/Ref FT4) 0.06 uIU/mL (0.36-3.74)
[2023-11-25 13:24] LABS: FREE T4 1.12 ng/dL (0.76-1.46)
== END 2023-11-25 08:48 | disposition home or self-care (01) ==
LOC: LOS 08:47
PROVIDERS: PCP Family Medicine; Referring Provider Family Medicine; Visit Provider Family Medicine
DX: E03.9 Hypothyroidism, unspecified (principal); Z12.11 Encounter for screening for malignant neoplasm of colon; I10 Essential (primary) hypertension; F33.9 Major depressive disorder, recurrent, unspecified; M53.3 Sacrococcygeal disorders, not elsewhere classified; G89.29 Other chronic pain; Z00.00 Encounter for general adult medical examination without abnormal findings
CPT/HCPCS: 36415; 84439; 84443

== ENCOUNTER 2024-02-10 02:07 | Outpatient (CLI) | payer OTHER, SELFPAY ==
[2024-02-10 16:15] LABS: TSH (W/Ref FT4) 0.65 uIU/mL (0.36-3.74)
== END 2024-02-10 02:08 | disposition home or self-care (01) ==
LOC: LBO 02:07
PROVIDERS: PCP Family Medicine; Visit Provider Family Medicine
DX: E03.9 Hypothyroidism, unspecified (principal)
CPT/HCPCS: 36415; 84443

== ENCOUNTER 2024-03-02 04:59 | Outpatient (CLI) | payer OTHER, SELFPAY ==
[2024-03-02 13:39] LABS: Abs Immature Grans 0.01 10^3/uL (0.0-0.06); Absolute Basophil Count 0.01 10^3/uL (0.0-0.2); Absolute Eosinophil Count 0.05 10^3/uL (0.0-0.7); Absolute Lymphocyte Count 1.17 10^3/uL (1.2-3.4); Absolute Monocyte Count 0.22 10^3/uL (0.1-0.8); Absolute Neutrophil Count 1.21 10^3/uL (1.2-6.7); Basophils % 0.4 %; Eosinophils % 1.9 %; HGB 11.1 g/dL (11.2-15.7); Immature Grans % 0.4 %; Lymphocytes % 43.8 %; MCHC 34.7 % (32.0-36.0); MCV 124 fL (80-95); Monocytes % 8.2 %; Neutrophils % 45.3 %; Platelet Count 538 10^3/uL (130-400); RBC 2.58 10^6/uL (3.93-5.22); RDW 14.3 % (11.7-14.6); WBC 2.67 10^3/uL (4.4-10.8)
[2024-03-02 13:48] LABS: ALT 35 U/L (14-59); AST 18 U/L (15-37); Albumin 3.7 g/dL (3.4-5.0); Alkaline Phosphatase 123 U/L (46-116); Anion Gap 9.8 mmol/L (3-11); BUN 9 mg/dL (7-18); Bilirubin, Total 0.23 mg/dL (0.2-1.0); CO2 27.2 mmol/L (21.0-32.0); CREATININE 0.7 mg/dL (0.55-1.02); Calcium 9.4 mg/dL (8.5-10.1); Chloride 106 mmol/L (98-107); Estimated GFR 95.32 (mL/min/1.73m2); Glucose 94 mg/dL (74-106); Potassium 4.3 mmol/L (3.5-5.1); Sodium 143 mmol/L (136-145); Total Protein 7.7 g/dL (6.4-8.2)
[2024-03-02 14:13] LABS: Diff Comment RBC Morph Reviewed; Macrocytosis 2+; Polychromasia Present; Spherocytes 2+
== END 2024-03-02 05:00 | disposition home or self-care (01) ==
LOC: LBO 05:00
PROVIDERS: PCP Family Medicine; Visit Provider Internal Medicine Hematology & Oncology
DX: D75.839 Thrombocytosis, unspecified (principal)
CPT/HCPCS: 36415; 80053; 85025

== ENCOUNTER → 2024-04-29 11:14 | Outpatient (BNVA) | payer MEDICARE, SELFPAY | PROVIDERS: PCP Family Medicine; Referring Provider Family Medicine; Visit Provider Physical Therapy Assistant | DX: Z12.11 Encounter for screening for malignant neoplasm of colon (principal); Z80.0 Family history of malignant neoplasm of digestive organs ==

== ENCOUNTER 2024-05-10 08:14 | Day surgery (SDC) | payer MEDICARE, SELFPAY ==
--- NOTE | 2024-05-09 05:59 | W.PM.DSUDISC ---
Date of service: 05/10/24 Discharge Plan Disposition Patient Disposition: Home Condition: Good Discharge Details Reason For Visit: screening colonoscopy Attending Provider: Cornell Eduardo Primary Care Provider: Natalya Nobles Home Meds and New Rx's Prescriptions: Continued hydroxyurea 500 mg capsule 1,500 - 2,000 mg PO DAILY Patient Comments: 2000mg MWF, 1500mg all other days aspirin 325 MG tablet 325 mg PO DAILY Patient Comments: For colonoscopy on 05/10/24 pt. PCP told her to take 1 81mg EC asa metoprolol succinate 25 mg tablet extended release 24 hr 25 mg PO DAILY Qty: 90 3RF levothyroxine 75 mcg tablet 75 mcg PO 6XW Qty: 90 1RF baclofen 10 mg tablet 10 mg PO TID PRN (Reason: muscle spasm) Qty: 90 1RF Rx Instructions: for back spasm verapamil 360 mg capsule,ext rel. pellets 24 hr 360 mg PO DAILY Qty: 90 3RF lorazepam 0.5 mg tablet 0.5 mg PO DAILY PRN (Reason: anxiety) Qty: 20 0RF Discontinued bisacodyl [Dulcolax (bisacodyl)] 5 mg tablet,delayed release (DR/EC) 5 mg PO ONCE Qty: 4 0RF Rx Instructions: Take per colonoscopy instructions provided by ordering providers office polyethylene glycol 3350 17 gram/dose powder 17 g PO ONCE Qty: 238 0RF Rx Instructions: Take per colonoscopy instructions provided by ordering providers office Discharge Instructions Instructions: Colon polyps, Diverticulosis Additional Instructions: Edie, it is very nice meeting you today, and I hope you are comfortable through the procedure. Everything went very smoothly. Your prep was excellent, negative everything fine. I did find and removed 2 small polyps today. I do not think these are anything to worry about, but I will send them off to the pathologist for their review. Polyps to come in different varieties, we use the information from the analysis to help guide recommendations for future colonoscopies. Incidentally, he also have a little bit of diverticulosis. Diverticula are little weak spots in the ball of the colon that caused the inside lining to pooch or pocket outwards. These can get infected during episodes that are called diverticulitis. Hopefully, years do not ever give you any trouble. I did attach a little bit of information here about diverticulosis as well as colon or rectal polyps. If you need anything at all or have any questions, please do not hesitate to ask. Otherwise, we will be in touch once the polyp report is complete. 1. If tolerated, consume a soft, low fiber diet for 1-2 days. 2[address] Do not drive, drink alcohol, operate machinery, make critical decisions, or do activities that require coordination or balance for 24 hours. 3. Because air was put into your colon during the procedure, expelling air from your rectum (passing gas or farting) is normal. 4. You may not have a bowel movement for 1-3 days because of the colonoscopy prep. This is normal. 5. Go directly to the emergency room if you notice any of the following: Develop chills (warm to touch), or if you have a thermometer and your temperature is above 101 Difficulty breathing or difficultly swallowing Persistent vomiting Severe abdominal pain, other than gas cramps Severe chest pain Black, tarry stools Any bleeding ? exceeding one tablespoon 6. Call your physician if the site where your intravenous was started becomes red, swollen, painful, and warm to touch. 7. Your physician has reviewed your pre-procedure medications. Please continue to take those medications as previously ordered. You will be given specific information/education regarding any changes to your medications before leaving. Activity:: Activity as Tolerated Diet:: As Tolerated Discharge Orders Discharge Orders: Discharge Order (Routine); Ordered 05/09/24 Ordered By: Cornell Eduardo DS: Diagnosis Discharge Diagnosis (1) Encounter for screening colonoscopy: Status: Acute Asessment and Plan: Follow-up on polypectomy results
--- NOTE | 2024-05-09 06:01 | W.COLOREPORT ---
Date of service: 05/10/24 Time of Service: 10:27 Colonoscopy Report Date of procedure: 05/10/24 Pre-op diagnosis general: screening colonoscopy Post-op diagnosis procedure note: other (Diverticulosis, colon polyps) Procedure: colonscopy with polypectomy Surgeon: Cornell Eduardo Anesthesia Type: General:No Airway Estimated blood loss (mL): 5 Pathology: other (0.25 cm polyps at 20 cm x 2) Complications: None Disposition: same day Indications: Edie is a 68 year old womwn who needs a screening colonoscopy. She has a family history of colon cancer Prep: Miralax/Dulcolax Procedure Start Time: 09:51 Procedure End Time: 10:17 Retraction Time: 16 Findings: 0.25 cm rectal polyps at 20 cm x 2; sigmoid diverticulosis Procedure Description: After the induction of anesthesia, and with the patient in left lateral decubitus position, I began by performing an external anorectal exam.? Perineum and skin were normal, as was the anal verge.? There was no evidence of external hemorrhoids.? Next, I performed a digital rectal exam.? I did not appreciate any abnormal findings.? Next, I advanced a colonoscope into the rectal vault.? I performed retroflexion.? This appears normal.? Using insufflation, I then advanced the colonoscope beyond the rectal folds and into the sigmoid colon before advancing towards the cecum.? The scope was noted to be in the cecum by identification of the ileocecal valve and appendiceal orifice.? I then began withdrawing the colonoscope using repeated irrigation as necessary for full evaluation of the colonic mucosa. ?Once the scope was withdrawn to the level of the rectum, great care was taken to examine portions of the rectal folds.? Finally, the scope was withdrawn and the patient was brought to the same-day surgery recovery unit as the anesthetic wore off. ?The findings and instructions were shared with the patient prior to discharge. [place] Bowel Prep [place] Bowel Prep Right Colon: 3 Left Colon: 3 Transverse Colon: 3 Total Score: 9
--- NOTE | 2024-05-09 15:35 | W.ANESPRE ---
General Info Date of Service Date Performed: 05/10/24 Height: 5 ft 4 in Weight: 94.801 kg Body Mass Index (BMI): 35.9 Surgical Procedure: Operation Date: 05/10/24 09:50 Proposed Procedure Side Surgeon andria Eduardo MD Meds Allergies and Home Medications Allergies Allergy/AdvReac Type Severity Reaction Status Date / Time citalopram Allergy Other (See Verified 05/10/24 08:34 Comment) hydrochlorothiazide Allergy Other (See Verified 05/10/24 08:34 Comment) carbamazepine AdvReac Severe nausea and Verified 05/10/24 08:34 bloating oxycodone AdvReac Intermediate vomiting Verified 05/10/24 08:34 sertraline AdvReac Intermediate ABD pain Verified 05/10/24 08:34 lisinopril AdvReac diarrhea Verified 05/10/24 08:34 topiramate (From Topamax) AdvReac tachy Verified 05/10/24 08:34 Adhesive Tab Allergy Intermediate skin Uncoded 05/10/24 08:34 blistered Home Medication ?Medication ?Instructions ?Recorded aspirin 325 mg tablet 325 mg PO DAILY 09/18/12 hydroxyurea 500 mg capsule 1,500 - 2,000 mg PO DAILY 11/28/22 metoprolol succinate 25 mg 25 mg PO DAILY #90 tabs 02/02/24 tablet,extended release 24 hr levothyroxine 75 mcg tablet 75 mcg PO 6XW #90 tabs 02/10/24 baclofen 10 mg tablet 10 mg PO TID PRN muscle spasm #90 03/19/24 tab-caps verapamil 360 mg 24 hr 360 mg PO DAILY #90 tab-caps 04/12/24 capsule,extended release lorazepam 0.5 mg tablet 0.5 mg PO DAILY PRN anxiety #20 04/30/24 tab-caps Current Visit Medications: Current Medications Generic Name Dose Route Start Last Admin Trade Name Freq PRN Reason Stop Dose Admin Ringer's Solution 1,000 mls @ 80 mls/hr 05/10/24 06:00 IV 05/10/24 23:59 INFUSION LUIS IV Miscellaneous Supplies 1 each 05/10/24 06:00 Iv Access IV 05/10/24 23:59 DIRECTED LUIS Ondansetron HCl 4 mg 05/09/24 06:02 Ondansetron 4 Mg/2 Ml Vial IVP 06/08/24 06:01 Q4H PRN PRN Nausea / Vomiting Sodium Chloride 0 ml 05/10/24 06:00 Normal Saline Flush 10 Ml Syr IV 05/10/24 23:59 PRN PRN Sodium Chloride 0 ml 05/10/24 06:00 Normal Saline 10 Ml Vial IJ 05/10/24 23:59 DIRECTED PRN Sterile Water 0 ml 05/10/24 06:00 Water,Injection,Sterile 10 Ml Vial IJ 05/10/24 23:59 DIRECTED PRN PFSH Active Problems Active Problems: Problem Status Onset Code Encounter for screening colonoscopy Acute Z12.11 Hypothyroidism Chronic E03.9 Chronic left SI joint pain Acute M53.3, G89.29 Iliotibial band syndrome, left leg Acute M76.32 Polycythemia vera Chronic D45 Essential thrombocytosis Chronic LIZ (obstructive sleep apnea) Chronic G47.33 Essential hypertension Chronic Hyperlipidemia Chronic E78.5 Osteoporosis Chronic M81.0 Nonalcoholic steatohepatitis (DURAND) Chronic K75.81 Calcific tendonitis of left shoulder Chronic M75.32 Major depressive disorder, recurrent Chronic F33.9 Generalized anxiety disorder Chronic F41.1 Celiac disease Chronic K90.0 Atrophic vaginitis Chronic N95.2 Medical History Medical History Migraine headache without aura Facial basal cell cancer Surgical History Surgical History History of esophagogastroduodenoscopy (EGD) (04/24/12) S/P colonoscopy (02/01/11) S/P ORIF (open reduction internal fixation) fracture S/P cholecystectomy (06/14/15) Tobacco Smoking/Tobacco Use Status: Former Tobacco Use Smokeless tobacco user: snuff Passive smoking exposure: Yes Second hand exposure: Yes Alcohol Alcohol Intake: former Substance Use Substance use: Never Substance use type: does not use Prental History History 2 Para 2 Hx # Term Pregnancies Multiple births Hx # Pregnancies Ectopic pregnancies AB induced Hx Number of Living Children 2 AB spontaneous Vital Signs and Lab Results Vital Signs Most Recent Vital Signs in EMR: Temp Pulse Resp BP Pulse Ox 36.4 C L 111 H 16 125/81 97 05/10/24 08:39 05/10/24 08:39 05/10/24 08:39 05/10/24 08:39 05/10/24 08:39 Lab Results Blood Type / Crossmatch: No Data to Display Complete Blood Count: No Data to Display Complete Metabolic Panel: No Data to Display Liver Function Panel: No Data to Display Coagulation Panel: No Data to Display Cardiac Panel: No Data to Display Arterial Blood Gas: No Data to Display Venous Blood Gas: No Data to Display Pancreas Panel: No Data to Display Thyroid Panel: No Data to Display Infectious Disease: No Data to Display Blood Cultures: No Data to Display Toxicology Panel: No Data to Display Anesthesia Assessment and Plan Anesthesia History Personal History: No History of Anesthesia Complications Family History: No Family History of Anesthesia Complications Exercise Tolerance Exercise Tolerance: Metabolic Equivalents<4 Pertinent Negatives Pertinent Negatives: No Symptoms of GERD Cardiac & Pulmonary Exam Cardiac Exam: Normal S1/S2 Heart Sounds Pulmonary Exam: Clear Bilateral Breath Sounds Implantable Cardiac Device Does patient have a Pacemaker or an ICD?: No Airway Exam Known Difficult Airway: No Mallampati Class: 2 Mouth Opening: Normal (> 3cm) Thyromental Distance: Greater than 3 cm Neck Range of Motion: Full ROM Neck Circumference: Normal Teeth Condition: Normal Dentition ASA Classification ASA Score: ASA 3 Emergency Case?: No NPO Status NPO Status: NPO Clears >2 hours, Solids >8 hours Anesthesia Plan Resuscitation Status: Full Code Anesthesia Technique: General Anesthesia Airway Planned: Natural Airway Monitors Used: Standard Monitors Preoperative Comments:: 68 yo female for colo. Sig PMHx: HTN (verapamil, metoprolol), LIZ, hypothyroid (on replacement), anxiety/depression, thrombocytosis/polycythemia vera, former smoker, Celiac disease. EKG: sinus, stress: negative, with poor functional capacity - ~ 4METS. Previous Anes: - lap minda, glide grade 1, easy mask, no issues.
[2024-05-10 08:39] VITALS: BP 125/81; PULSE 111; RESP 16; TEMP 36.4; O2SAT 97
[2024-05-10] MEDS: Lactated Ringers 1,000 ML 80 ML IV (09:11)
[2024-05-10 09:32] VITALS: BMI 35.9
--- NOTE | 2024-05-10 10:14 | BOWEL_PTH ---
PATIENT: Edie Hawkins LOC: [facility] U#:[id number] AGE/SX: 68/F ROOM: RE05/10/[address]: Cornell Eduardo MD : 1955 BED: DIS: 05/10/2024 SPEC #: [id number] RECD: 05/10/24 12:36 STATUS: KODY REQ #: [id number] LUDWIG: 05/10/24 10:[address]: Cornell Eduardo DEPT: Surgical Specimen RECD BY: Chata Ann ENTERED: 05/10/24 12:37 SP TYPE: Bowel OTHR DR: Natalya Nobles Tissues: 1 - BIOPSY BOWEL Procedures: GROSS AND MICRO LEVEL 4 Comments: [id number]
[2024-05-10 10:24] VITALS: BP 88/62; PULSE 79; RESP 16; TEMP 36; O2SAT 93
--- NOTE | 2024-05-10 10:33 | W.ANESPOSTOP ---
Postoperative Evaluation Date, Time and Location Date Performed: 05/10/24 Time Performed: 10:34 Patient Location: Day Surgery Unit Vital Signs Most Recent Imported Vital Signs: Most Recent Vital Signs Temp Pulse Resp BP Pulse Ox 36.0 C L 79 16 88/62 L 93 05/10/24 10:24 05/10/24 10:24 05/10/24 10:24 05/10/24 10:24 05/10/24 10:24 Pain Score Most Recent Pain Score: Most Recent Pain Score Pain Level 0 05/10/24 10:24 Assessment Mental Status: Awake (Alert & Oriented to Patient Baseline) Airway and Respiratory Function: Patent airway with normal (patient baseline) respiratory exam Cardiovascular Function: Hemodynamically Stable Hydration Status: Adequately Hydrated Nausea & Vomiting: No Nausea or Vomiting Pain: Pt. Denies Any Pain Peripheral Nerve Block: Patient did not receive a nerve block
[2024-05-10 10:51] VITALS: BP 111/73; PULSE 70; RESP 18; TEMP 36; O2SAT 94
== END 2024-05-10 11:20 | disposition home or self-care (01) ==
LOC: SUR 08:14
PROVIDERS: PCP Family Medicine; Visit Provider Surgery
PROC: 0DJD8ZZ Inspection of Lower Intestinal Tract, Via Natural or Artificial Opening Endoscopic (ICD-10-PCS; CPT 45378; principal; 2024-05-10 09:45)
DX: Z12.11 Encounter for screening for malignant neoplasm of colon (principal); D12.5 Benign neoplasm of sigmoid colon; G47.33 Obstructive sleep apnea (adult) (pediatric); I10 Essential (primary) hypertension; Z80.0 Family history of malignant neoplasm of digestive organs; K57.30 Diverticulosis of large intestine without perforation or abscess without bleeding
CPT/HCPCS: 45380; 88305; J2704

== ENCOUNTER 2024-06-17 02:11 | Outpatient (CLI) | payer MEDICARE, SELFPAY ==
--- NOTE | 2024-06-17 | DI.MRI_ITS ---
Exam(s) MR LUMBAR SPINE WO EXAM: MR LUMBAR SPINE WO CLINICAL HISTORY: Lt lumbar radiculopathy, M54.16; back pain. TECHNIQUE: Multiplanar multisequence MRI of the Lumbar spine was performed. COMPARISON: CT AORTIC ANEURYSM W CONTRAST from 08/13/2016 CR XR SACROILIAC JOINTS from 09/02/2023 FINDINGS: Bones: The last intervertebral disc space is designated the L5/S1 level for the numbering purpose of this ex amination. The vertebral body heights are well maintained. Alignment: Unremarkable. The marrow signal characteristics are unremarkable. Cord: The conus tip ends at the T12 level. It is of normal size and signal intensity. T12-L1: No focal disc herniation is present. No central spinal canal stenosis.No neural foraminal st enosis. L1-2: No focal disc herniation is present. No central spinal canal stenosis.No neural foraminal sten osis. L2-3: No focal disc herniation is present. No central spinal canal stenosis.No neural foraminal jenelle nosis. L3-4: Minimal disc bulging.No focal disc herniation is present. No central spinal canal stenosis.Mi ld facet degenerative changes.No neural foraminal stenosis. L4-5:Minimal disc bulging. No focal disc herniation is present. Facet degenerative changes and liga mentous hypertrophy. Mild central spinal canal stenosis.No neural foraminal stenosis. L5-S1: No focal disc herniation is present.There are small facet joint cysts projecting posterior to the facet joints bilaterally. No central spinal canal stenosis.No neural foraminal stenosis. The visualized SI joints and sacrum are unremarkable. Soft tissues: The paraspinal soft tissues are unremarkable. IMPRESSION: No evidence of focal disc herniation. Mild disc bulging at L4-5 combines with facet degenerative changes and ligamentous hypertrophy to pro duce mild central canal stenosis. No evidence of neuroforaminal narrowing. DATA REPOSITORY:
== END 2024-06-17 02:31 ==
LOC: DI 02:12
PROVIDERS: PCP Family Medicine; Visit Provider Orthopaedic Surgery
DX: M51.360 Other intervertebral disc degeneration, lumbar region with discogenic back pain only (principal)
CPT/HCPCS: 72148

== ENCOUNTER 2024-06-21 01:30 | Outpatient (CLI) | payer MEDICARE, SELFPAY ==
--- NOTE | 2024-06-21 07:30 | DI.RAD_ITS ---
Exam(s) XR FOOT LT COMPLETE XR FOOT RT COMPLETE EXAM: XR FOOT LT COMPLETE CLINICAL HISTORY: pain lt foot, M79.672. TECHNIQUE: 2D digital imaging was performed. Three views of both feet. COMPARISON: CR XR foot RT complete from 12/11/2018 FINDINGS: BONES: No acute fracture is present. No bony destructive lesion is seen. JOINTS: No dislocation present. Minimal degenerative changes. SOFT TISSUE: Normal. IMPRESSION: Unremarkable radiographs of the feet. DATA REPOSITORY: RADIATION DOSE DELIVERED:
== END 2024-06-21 01:50 ==
LOC: DI 01:30
PROVIDERS: PCP Family Medicine; Visit Provider Podiatrist
DX: M79.671 Pain in right foot (principal); M79.672 Pain in left foot
CPT/HCPCS: 73630

== ENCOUNTER 2024-07-29 01:17 | Outpatient (CLI) | payer MEDICARE, SELFPAY ==
--- NOTE | 2024-07-29 08:45 | DI.RAD_ITS ---
Exam(s) XR FOOT LT COMPLETE EXAM: XR FOOT LT COMPLETE CLINICAL HISTORY: pain, stress fracture, contusion, neuropathy, radiculopathy. TECHNIQUE: 2D digital imaging was performed. Three views. COMPARISON: CR XR FOOT RT COMPLETE from 06/21/2024 FINDINGS: BONES: No acute fracture is present. No bony destructive lesion is seen. JOINTS: No dislocation present. No significant degenerative changes. SOFT TISSUE: Normal. IMPRESSION: Unremarkable radiographs of the left foot. DATA REPOSITORY: RADIATION DOSE DELIVERED:
== END 2024-07-29 01:37 ==
LOC: DI 01:17
PROVIDERS: PCP Family Medicine; Visit Provider Podiatrist
DX: M84.375A Stress fracture, left foot, initial encounter for fracture (principal); S90.32XA Contusion of left foot, initial encounter; G62.9 Polyneuropathy, unspecified; X58.XXXA Exposure to other specified factors, initial encounter; M25.372 Other instability, left ankle; R60.0 Localized edema; S93.525A Sprain of metatarsophalangeal joint of left lesser toe(s), initial encounter; Z78.9 Other specified health status; M54.16 Radiculopathy, lumbar region; Y93.89 Activity, other specified
CPT/HCPCS: 99214; 73630

== ENCOUNTER 2024-08-09 02:00 | Outpatient (CLI) | payer MEDICARE, SELFPAY ==
--- NOTE | 2024-08-09 14:25 | DI.RAD_ITS ---
Exam(s) XR KNEE RT 3V AP,LAT,SOLO EXAM: XR KNEE RT 3V AP,LAT,SOLO CLINICAL HISTORY: right knee pain x 3 wks,m25.562. TECHNIQUE: 2D digital imaging was performed. COMPARISON: CR XR KNEE LT 3V AP,LAT,SOLO from 02/21/2023 FINDINGS: 3 views No evidence of fracture or prominent joint effusion. There does appear to be a small amount of incre ased joint fluid is seen on the lateral view. There is mild narrowing of the medial compartment seen on the upright view. No osteophytes. Lateral compartment exhibits normal height. There is no chondrocalcinosis. There are no osteochondral defe cts. IMPRESSION: Mild degenerative changes in the medial compartment. Small amount of increased joint fluid. DATA REPOSITORY: RADIATION DOSE DELIVERED:
== END 2024-08-09 02:20 ==
LOC: DI 02:01
PROVIDERS: PCP Family Medicine; Visit Provider Family Medicine
DX: M25.561 Pain in right knee (principal)
CPT/HCPCS: 73562

== ENCOUNTER 2024-08-17 11:33 | Outpatient (CLI) | payer MEDICARE, SELFPAY ==
[2024-08-17 13:12] LABS: Abs Immature Grans 0.01 10^3/uL (0.0-0.06); Absolute Basophil Count 0.03 10^3/uL (0.0-0.2); Absolute Eosinophil Count 0.03 10^3/uL (0.0-0.7); Absolute Lymphocyte Count 1.37 10^3/uL (1.2-3.4); Absolute Monocyte Count 0.23 10^3/uL (0.1-0.8); Basophils % 0.9 %; Eosinophils % 0.9 %; HCT 32.5 % (36.0-46.0); HGB 11.3 g/dL (11.2-15.7); Immature Grans % 0.3 %; Lymphocytes % 43.2 %; MCH 44.1 pg (27.0-33.0); MCHC 34.8 % (32.0-36.0); MCV 127 fL (80-95); MPV 10.9 fL (8.0-11.0); Monocytes % 7.3 %; Neutrophils % 47.4 %; Platelet Count 407 10^3/uL (130-400); RBC 2.56 10^6/uL (3.93-5.22); RDW 13.3 % (11.7-14.6); RDW-SD 63.6 fL; WBC 3.17 10^3/uL (4.4-10.8)
[2024-08-17 13:35] LABS: ALT 48 U/L (14-59); AST 32 U/L (15-37); Alkaline Phosphatase 122 U/L (46-116); Anion Gap 9.3 mmol/L (3-11); BUN 24 mg/dL (7-18); Bilirubin, Total 0.4 mg/dL (0.2-1.0); CO2 27.7 mmol/L (21.0-32.0); CREATININE 0.8 mg/dL (0.55-1.02); Calcium 9.4 mg/dL (8.5-10.1); Chloride 104 mmol/L (98-107); Estimated GFR 81.21 (mL/min/1.73m2); Glucose 92 mg/dL (74-106); Potassium 4.5 mmol/L (3.5-5.1); Sodium 141 mmol/L (136-145); Total Protein 7.8 g/dL (6.4-8.2)
== END 2024-08-17 11:34 | disposition home or self-care (01) ==
LOC: LBO 11:35
PROVIDERS: PCP Family Medicine; Visit Provider Nurse Practitioner Adult Health
DX: D75.839 Thrombocytosis, unspecified (principal)
CPT/HCPCS: 36415; 80053; 85025

== ENCOUNTER → 2024-08-18 12:47 | Outpatient (BNVA) | payer MEDICARE, SELFPAY | PROVIDERS: PCP Family Medicine; Referring Provider Family Medicine; Visit Provider Physician Assistant | DX: M17.11 Unilateral primary osteoarthritis, right knee (principal); M70.51 Other bursitis of knee, right knee | CPT/HCPCS: 20610; 99213; J1010 ==

== ENCOUNTER 2025-01-06 04:04 | Outpatient (CLI) | payer MEDICARE, SELFPAY ==
--- NOTE | 2025-01-06 06:08 | DI.MAMMO_ITS ---
Exam(s) MAMMO SCREENING EXAM: MAMMO SCREENING CLINICAL HISTORY: screening,Z12.39 TECHNIQUE: Bilateral full field digital CC and MLO mammographic images were obtained with 3D tomosynthesis and utilizing computer aided detection (CAD). COMPARISON: Comparison is made with prior examinations. FINDINGS: Masses/Architectural Distortion: No suspicious masses or areas of architectural distortion are present. Microcalcifications: No suspicious pleomorphic-type are seen. Skin Thickening/Nipple Retraction: None. IMPRESSION: 1. No significant interval change with no specific features of malignancy noted. 2. Unless there is more urgent need, screening mammography is recommended, as per [place] [employer] guidelines. BI-RADS Category 1 - Negative Breast Density - Category A - The breast are almost entirely fatty. Breast density Category C or D implies that the patient has dense breast tissue. Dense breast tissue can make it harder to find cancer on a mammogram. Dense breast tissue is also associated with an increased risk of breast cancer. This information about the result of the mammogram report was provided to the patient to raise their awareness. Use this report when you speak with the patient about their risks for breast cancer, which includes their family history. At that time, you may recommend additional screening tests (Ultrasound or MRI) as these tests may add significant information. A negative radiographic report should not delay biopsy if a dominant or clinically suspicious mass is present. Up to ten percent of cancers are not identified on mammography. A negative report may reinforce clinical impression. Adenosis and dense breasts may obscure an underlying neoplasm. False positive reports average 6 to 10%. Patient will receive a letter notifying them of these results.
--- NOTE | 2025-01-06 09:30 | DI.DEXA_ITS ---
Exam(s) XR DEXA BONE DENSITY W/WO DEMETRIS EXAM: XR DEXA BONE DENSITY W/WO DEMETRIS CLINICAL HISTORY: f/u osteoporosis,MENOPAUSAL DISORDER,N95.9,M81.0 TECHNIQUE: COMPARISON: CR XR DEXA BONE DENSITY W/WO DEMETRIS from 09/12/2022 FINDINGS: Lateral Spine Image: Unremarkable. No compression deformities identified. Left hip: Total T-Score: -2.8. This compares to -2.2 on the prior examination. Total Z-Score: -1.5 T- and Z-scores: Findings are consistent with osteoporosis. Lumbar Spine: Total T-Score: -2.6. This compares to -2.2 on the prior examination. Total Z-Score: -0.7 T- and Z-scores: Findings are consistent with osteoporosis. IMPRESSION: Osteoporosis in the left hip and lumbar spine.
== END 2025-01-06 04:24 ==
PROVIDERS: PCP Family Medicine; Visit Provider Family Medicine
DX: Z12.31 Encounter for screening mammogram for malignant neoplasm of breast (principal); N95.9 Unspecified menopausal and perimenopausal disorder; M81.0 Age-related osteoporosis without current pathological fracture
CPT/HCPCS: 77063; 77067; 77080

== ENCOUNTER 2025-01-12 15:18 | Outpatient (CLI) | payer MEDICARE, SELFPAY ==
[2025-01-12 09:47] LABS: Hemoglobin A1C 5.0 % (<5.7)
[2025-01-12 10:23] LABS: TSH (W/Ref FT4) 1.91 uIU/mL (0.36-3.74)
== END 2025-01-12 15:19 | disposition home or self-care (01) ==
LOC: LBO 15:19
PROVIDERS: PCP Family Medicine; Visit Provider Family Medicine
DX: R73.01 Impaired fasting glucose (principal); E66.812 Obesity, class 2; E66.09 Other obesity due to excess calories; Z68.38 Body mass index [BMI] 38.0-38.9, adult; E03.9 Hypothyroidism, unspecified
CPT/HCPCS: 36415; 83036; 84443

== ENCOUNTER 2025-02-28 07:45 | Outpatient (CLI) | payer MEDICARE, SELFPAY ==
[2025-02-28 07:37] LABS: Abs Immature Grans 0.01 10^3/uL (0.0-0.06); HCT 34.2 % (36.0-46.0); HGB 12.1 g/dL (11.2-15.7); Immature Grans % 0.3 %; MCH 41.9 pg (27.0-33.0); MCHC 35.4 % (32.0-36.0); MCV 118 fL (80-95); MPV 10.8 fL (8.0-11.0); Platelet Count 464 10^3/uL (130-400); RBC 2.89 10^6/uL (3.93-5.22); RDW 14.6 % (11.7-14.6); RDW-SD 63.4 fL; WBC 2.86 10^3/uL (4.4-10.8)
[2025-02-28 08:03] LABS: ALT 33 U/L (14-59); AST 26 U/L (15-37); Albumin 3.7 g/dL (3.4-5.0); Alkaline Phosphatase 108 U/L (46-116); Anion Gap 12.8 mmol/L (3-11); BUN 17 mg/dL (7-18); Bilirubin, Total 0.4 mg/dL (0.2-1.0); CO2 24.2 mmol/L (21.0-32.0); Calcium 8.3 mg/dL (8.5-10.1); Chloride 104 mmol/L (98-107); Glucose 108 mg/dL (74-106); Potassium 3.7 mmol/L (3.5-5.1); Sodium 141 mmol/L (136-145); Total Protein 7.4 g/dL (6.4-8.2)
== END 2025-02-28 07:46 | disposition home or self-care (01) ==
LOC: LBO 07:45
PROVIDERS: PCP Family Medicine; Visit Provider Nurse Practitioner Adult Health
DX: D75.839 Thrombocytosis, unspecified (principal)
CPT/HCPCS: 36415; 80053; 85025